=== PATIENT | male | born 1985 | race African-American/Black ===

== ENCOUNTER 2016-08-25 05:27 | Emergency (ER) | payer OTHER ==
--- NOTE | 2016-08-25 05:32 | PDOC ---
History of Present Illness - General Stated Complaint: DETOX History Source: Patient Exam Limitations: No Limitations Past History - Past Medical History Allergies/Adverse Reactions: Allergies Allergy/AdvReac Type Severity Reaction Status Date / Time ibuprofen [From Motrin] Allergy Severe Swelling Verified 08/14/16 10:42 peanut Allergy Swelling Verified 08/14/16 10:42 Home Medications: Ambulatory Orders Mirtazapine [Remeron -] 45 mg PO HS #90 tablet 04/02/16 Quetiapine Fumarate [Seroquel -] 300 mg PO HS 08/14/16 Mirtazapine [Remeron -] 45 mg PO HS #30 tablet 08/15/16 Quetiapine Fumarate [Seroquel -] 300 mg PO HS #30 tab 08/15/16 Amlodipine Besylate [Norvasc -] 10 mg PO DAILY #30 tablet 08/18/16 Anemia: No Asthma: No Cancer: No Cardiac Disorders: No CVA: No COPD: No CHF: No Dementia: No Diabetes: No GI Disorders: No Disorders: No HTN: No Hypercholesterolemia: No Kidney Stones: No Liver Disease: No Suicide Attempt (Hx): No (denies) Seizures: Yes (alcohol related-last episode was in 2014) Thyroid Disease: No - Surgical History Abdominal Surgery: No Appendectomy: No Cardiac Surgery: No Cholecystectomy: No Lung Surgery: No Neurologic Surgery: No Orthopedic Surgery: Yes (2 plates in jaw(14 yrs old)) - Reproductive History Testicular Surgery: No - Psycho/Social/Smoking Cessation Hx Anxiety: Yes Suicidal Ideation: No Smoking Status: Yes Smoking History: Current every day smoker Have you smoked in the past 12 months: Yes Number of Cigarettes Smoked Daily: 20 Cigars Per Day: 0 'Breaking Loose' booklet given: 08/14/16 Hx Alcohol Use: Yes Drug/Substance Use Hx: Yes Substance Use Type: Alcohol, Cocaine, Tranquilizers Hx Substance Use Treatment: Yes Cardiac Specific PMH - Complaint Specific PMHX Pacemaker: No Review of Systems - Review of Systems Able to Perform ROS?: Yes Comments:: 08/25/16 05:51 CONSTITUTIONAL: Absent: fever, chills, diaphoresis, generalized weakness, malaise, loss of appetite HEENT: Absent: rhinorrhea, nasal congestion, throat pain, throat swelling, difficulty swallowing, mouth swelling, ear pain, eye pain, visual Changes CARDIOVASCULAR: Absent: chest pain, loss of consciousness, palpitations, irregular heart rate, peripheral edema RESPIRATORY: Absent: cough, shortness of breath, dyspnea with exertion, orthopnea, wheezing, stridor, hemoptysis GASTROINTESTINAL: Absent: abdominal pain, abdominal distension, nausea, vomiting, diarrhea, constipation, melena, hematochezia GENITOURINARY: Absent: dysuria, frequency, urgency, hesitancy, hematuria, flank pain, genital pain MUSCULOSKELETAL: Absent: myalgia, arthralgia, joint swelling SKIN: Absent: rash, itching, pallor HEMATOLOGIC/IMMUNOLOGIC: Absent: easy bleeding, easy bruising, lymphadenopathy, frequent infections ENDOCRINE: Absent: unexplained weight gain, unexplained weight loss, heat intolerance, cold intolerance NEUROLOGIC: Absent: headache, focal weakness or paresthesias, dizziness, unsteady gait, seizure, mental status changes, bladder or bowel incontinence PSYCHIATRIC: Absent: anxiety, depression, suicidal or homicidal ideation, hallucinations. Is the patient limited Swazi proficient: No *Physical Exam - Vital Signs Last Vital Signs Temp Pulse Resp BP Pulse Ox 98 F 106 H 18 161/110 100 08/25/16 05:38 08/25/16 05:38 08/25/16 05:38 08/25/16 05:38 08/25/16 05:38 - Physical Exam Comments: 08/25/16 05:55 GENERAL: Well developed, well nourished. Awake and alert. No acute distress. HEENT: Normocephalic, atraumatic. PERRLA, EOMI. No conjunctival pallor. Sclera are non- icteric. Moist mucous membranes. Oropharynx is clear. NECK: Supple. Full ROM. No JVD. Carotid pulses 2+ and symmetric, without bruits. No thyromegaly. No lymphadenopathy. CARDIOVASCULAR: Regular rate and rhythm. No murmurs, rubs, or gallops. Distal pulses are 2+ and symmetric. PULMONARY: No evidence of respiratory distress. Lungs clear to auscultation bilaterally. No wheezing, rales or rhonchi. ABDOMINAL: Soft. Non-tender. Non-distended. No rebound or guarding. No organomegaly. Normoactive bowel sounds. MUSCULOSKELETAL Normal range of motion at all joints. No bony deformities or tenderness. No CVA tenderness. EXTREMITIES: No cyanosis. No clubbing. No edema. No calf tenderness. SKIN: Warm and dry. Normal capillary refill. No rashes. No jaundice. NEUROLOGICAL: Alert, awake, appropriate. Cranial nerves 2-12 intact. No deficits to light touch and temperature in face, upper extremities and lower extremities. No motor deficits in the in face, upper extremities and lower extremities. Normoreflexic in the upper and lower extremities. Normal speech. Toes are down- going bilaterally. Gait is normal without ataxia. PSYCHIATRIC: Cooperative. Good eye contact. Appropriate mood and affect. ED Treatment Course - ADDITIONAL ORDERS Additional order review: Laboratory Results 08/25/16 05:45 Opiates Screen Negative Methadone Screen Negative Barbiturate Screen Negative Phencyclidine Screen Negative Ur Amphetamines Screen Negative MDMA (Ecstasy) Screen Negative Benzodiazepines Screen Positive Cocaine Screen Positive U Marijuana (THC) Screen Positive Progress Note - Progress Note Progress Note: 31-year-old male with a past medical history of alcohol abuse presents to the emergency department requesting for alcohol and drug detox. Patient states he was discharged from [facility] 11 days ago but relapsed this evening after drinking a sixpack of beer and smoking cocaine and marijuana. Patient denies any headache, dizziness, lightheadedness, visual disturbance, blurry vision, neck pain, back pains, chest pain, shortness of breath, abdominal pains , urinary symptoms, extremity numbness or tingling sensation. Detox center called/2 [facility]AK [facility] advised it's to soon to have the pt return because it's less than 2 weeks. 0700hrs: Signed out to BURAK Oliveira *DC/Admit/Observation/Transfer Diagnosis at time of Disposition: Alcohol abuse - Discharge Dispostion Disposition: I.P. ALCOHOL/SUBS ABUSE REHAB
[2016-08-25 06:00] VITALS: TEMP 98; BMI 22.5
[2016-08-25 06:46] LABS: URINE MARIJUANA THC POSITIVE ng/ml (CUTOFF=50)
--- NOTE | 2016-08-25 09:15 | PDOC ---
*Physical Exam - Vital Signs Last Vital Signs Temp Pulse Resp BP Pulse Ox 98 F 92 H 18 160/100 98 08/25/16 05:38 08/25/16 09:06 08/25/16 09:06 08/25/16 09:06 08/25/16 09:06 - Physical Exam Comments: 08/25/16 09:13 Signed out to me by SHAMIR Oreilly 08/25/16 09:16 31-year-old male with a past medical history of alcohol abuse presents to the emergency department requesting for alcohol and drug detox. Patient had reported that he was discharged from [facility] 11 days ago but relapsed this evening after drinking a sixpack of beer and smoking cocaine and marijuana. Patient denies any headache, dizziness, lightheadedness, visual disturbance, blurry vision, neck pain, back pains, chest pain, shortness of breath, abdominal pains, urinary symptoms, extremity numbness or tingling sensation. SHAMIR Oreilly spoke to Detox center [facility] [place], SENIOR [employer] DEVELOPER Juju had advised her that it was too soon to have the pt return because it's less than 2 weeks. General Appearance: Yes: Appropriately Dressed HEENT: positive: EOMI, RADU, TMs Normal, Other (dry oral mucosa ). negative: Pharyngeal Erythema, Tonsillar Exudate, Tonsillar Erythema Neck: negative: Lymphadenopathy (R), Lymphadenopathy (L) Respiratory/Chest: positive: Chest Tender, Lungs Clear, Normal Breath Sounds. negative: Respiratory Distress Cardiovascular: positive: Regular Rhythm, Regular Rate, S1, S2 Gastrointestinal/Abdominal: positive: Normal Bowel Sounds, Soft. negative: Organomegaly, Distended, Guarding, Rebound, Tenderness, Hepatomegaly, Spleenomegaly Integumentary: positive: Normal Color Neurologic: positive: Fully Oriented, Alert, Normal Response, Respond to painful stimul, Responsive ED Treatment Course - ADDITIONAL ORDERS Additional order review: Laboratory Results 08/25/16 05:45 Opiates Screen Negative Methadone Screen Negative Barbiturate Screen Negative Phencyclidine Screen Negative Ur Amphetamines Screen Negative MDMA (Ecstasy) Screen Negative Benzodiazepines Screen Positive Cocaine Screen Positive U Marijuana (THC) Screen Positive Medical Decision Making - Medical Decision Making 08/25/16 09:15 08/25/16 09:23 31-year-old male with a past medical history of alcohol abuse and crack cocaine abuse presents to the emergency department requesting for alcohol and drug detox. Patient states he was discharged from [facility] 11 days ago but relapsed this evening after drinking a sixpack of beer and smoking cocaine and marijuana. Patient denies any headache, dizziness, lightheadedness, visual disturbance, blurry vision, neck pain, back pains, chest pain, shortness of breath, abdominal pains, urinary symptoms, extremity numbness or tingling sensation. Pt. reports having h/o grand mal seizure last seizure 1 month ago, also has HTN, h/o anxiety and depression. He reports taking keppra, depakote, seroquel and doexepin. Pt. has not taken medication since discharge. Pt. denies tremors, headache, nausea or vomitng. Pt. has not slept in 4 days. Detox center called/[facility], BURAK [place]ute advised it's to soon to have the pt return because it's less than 2 weeks. 08/25/16 09:24 Laboratory Tests 08/25/16 05:45 Opiates Screen Negative Methadone Screen Negative Barbiturate Screen Negative Phencyclidine Screen Negative Ur Amphetamines Screen Negative MDMA (Ecstasy) Screen Negative Benzodiazepines Screen Positive Cocaine Screen Positive U Marijuana (THC) Screen Positive 08/25/16 09:47 08/25/16 09:[address] Wilkins from [facility] he reported that pt can come for an evaluation but he will not get admitted due to his recent discharge from detox 11 days ago. Pt. requests going to [facility] in [place], [place]. They were called, they gave a number for regional truck driver [phone] regional truck driver will be here within the next hour. They called back pt. will need to have all his medication on him to take to their facility. He does not have his medication on him. He will be discharged. Recommended to patient that he go down 2 [facility] for further evaluation from here at the detox. 08/25/16 09:52 08/25/16 14:16 *DC/Admit/Observation/Transfer Diagnosis at time of Disposition: Alcohol abuse, Marijuana use, Cocaine dependence without complication - Discharge Dispostion Disposition: HOME Condition at time of disposition: Stable - Prescriptions Prescriptions: Amlodipine Besylate [Norvasc -] 10 mg PO DAILY #30 tablet Mirtazapine [Remeron -] 45 mg PO HS #30 tablet Quetiapine Fumarate [Seroquel -] 300 mg PO HS #30 tab - Patient Instructions Additional Instructions: Follow-up at [facility] at [address] [place] [address] as soon as possible Return to emergency room if needed The patient voiced understanding of discharge instructions and all questions were answered
[2016-08-25 10:51] VITALS: BP 158/101; PULSE 88
--- NOTE | 2016-08-25 11:12 | EKG ---
Test Reason : Blood Pressure : / mmHG Vent. Rate : 084 BPM Atrial Rate : 084 BPM P-R Int : 108 ms QRS Dur : 118 ms QT Int : 380 ms P-R-T Axes : 056 066 062 degrees QTc Int : 449 ms SINUS RHYTHM WITH MARKED SINUS ARRHYTHMIA WITH SHORT VT NON-SPECIFIC INTRA-VENTRICULAR CONDUCTION DELAY NONSPECIFIC T WAVE ABNORMALITY ABNORMAL ECG WHEN COMPARED WITH ECG OF 14-AUG-2016 14:38, NO SIGNIFICANT CHANGE WAS FOUND Confirmed by SHANNA DUQUE MD ([id number]) on 08/25/2016 11:11:43 AM Referred By: Confirmed By:SHANNA DUQUE MD
== END 2016-08-25 10:51 | disposition home or self-care (01) ==
LOC: JER 05:27
DX: F14.20 Cocaine dependence, uncomplicated (principal); G40.509 Epileptic seizures related to external causes, not intractable, without status epilepticus
CPT/HCPCS: 80307; 93005; 93010; 99284-25

== ENCOUNTER 2016-09-12 11:17 | Inpatient (IN) | payer OTHER ==
[2016-09-12 12:12] VITALS: BMI 22.5
--- NOTE | 2016-09-12 14:01 | HP ---
CIWA Score - CIWA Score Nausea/Vomitin Muscle Tremors: 3 Anxiety: 3 Agitation: 3 Paroxysmal Sweats: 2 Orientation: 0-Oriented Tacttile Disturbances: 2-Mild Itch/Numbness/Burn Auditory Disturbances: 2-Mild Harshness/Frighten Visual Disturbances: 2-Mild Sensitivity Headache: 2-Mild CIWA-Ar Total Score: 22 Admission ROS BHS - HPI Chief Complaint: I NEED HELP TO STOP USING ALCOHOL,COCAINE AND MARIJUANA PCP,WITHDRAWAL SYMPTOM, LAST DETOX 08/14/16 T0 08/18/16 Allergies/Adverse Reactions: Allergies Allergy/AdvReac Type Severity Reaction Status Date / Time ibuprofen [From Motrin] Allergy Severe Swelling Verified 09/12/16 12:58 peanut Allergy Severe Swelling Verified 09/12/16 12:58 History of Present Illness: THIS 31 YEARS OLD MALE WITH ALCOHOL,COCAINE,,MARIJUANA AND PCP DEPENDENCE, WITHDRAWAL SYMPTOM,LAST DETOX [facility] 08/14/16 TO 08/18/16 HTN BIPOLAR DISORDER,DEPRESSION LONGEGST PERIOD OF SOBRIETY 10 MONTHS NICOTINE DEPENDENCE Exam Limitations: No Limitations - Ebola screening Have you traveled outside of the country in the last 21 days: No Have you had contact with anyone from an Ebola affected area: No Have you been sick,other than usual withdrawal symptoms: No - Review of Systems Constitutional: Loss of Appetite, Malaise, Night Sweats, Changes in sleep, Weakness, Unintentional Wgt. Loss EENT: reports: Nose Congestion Respiratory: reports: No Symptoms reported Cardiac: reports: Palpitations GI: reports: Diarrhea, Nausea, Vomiting, Abdominal cramping : reports: No Symptoms Reported Musculoskeletal: reports: Back Pain, Muscle Pain Integumentary: reports: Dryness Neuro: reports: Headache, Tremors Endocrine: reports: No Symptoms Reported Hematology: reports: No Symptoms Reported Psychiatric: reports: Anxious, Depressed Patient History - Patient Medical History Hx Anemia: No Hx Asthma: No Hx Chronic Obstructive Pulmonary Disease (COPD): No Hx Cancer: No Hx Cardiac Disorders: No Hx Congestive Heart Failure: No Hx Hypertension: Yes (LAST 1 MONTH) Hx Hypercholesterolemia: No Hx Pacemaker: No HX Cerebrovascular Accident: No Hx Seizures: Yes (drug related-last episode was in 2014) Hx Dementia: No Hx Diabetes: No Hx Gastrointestinal Disorders: No Hx Liver Disease: No Hx Genitourinary Disorders: No Hx Sexually Transmitted Disorders: No Hx Renal Disease (ESRD): No Hx Thyroid Disease: No Hx Human Immunodeficiency Virus (HIV): No (negative) Hx Hepatitis C: Yes Hx Depression: Yes Hx Suicide Attempt: No Hx Bipolar Disorder: Yes (NON COMPLIANCE) Hx Schizophrenia: No Other Medical History: NO SUICIDAL,NO HOMICIDAL - Patient Surgical History Past Surgical History: Yes Hx Neurologic Surgery: No Hx Cataract Extraction: No Hx Cardiac Surgery: No Hx Lung Surgery: No Hx Breast Surgery: No Hx Breast Biopsy: No Hx Abdominal Surgery: No Hx Appendectomy: No Hx Cholecystectomy: No Hx Genitourinary Surgery: No Hx Section: No Hx Orthopedic Surgery: Yes (fx, chin, left side jaw at age 14) Other Surgical History: left inguinal hernia repair Anesthesia Reaction: No - PPD History Previous Implant?: Yes Documented Results: Negative w/proof Implanted On Prior [facility] Admission?: Yes Date: 08/16/16 Results: 0 mm PPD to be Administered?: No - Smoking Cessation Smoking history: Current every day smoker Have you smoked in the past 12 months: Yes Aproximately how many cigarettes per day: 20 Cigars Per Day: 0 Hx Chewing Tobacco Use: No Initiated information on smoking cessation: Yes 'Breaking Loose' booklet given: 09/12/16 - Substance & Tx. History Hx Alcohol Use: Yes Hx Substance Use: Yes Substance Use Type: Alcohol, Cocaine, Marijuana Hx Substance Use Treatment: Yes ([facility] 08/14/16 TO 08/18/16) - Substances Abused Cocaine Route: Inhalation Frequency: Daily Amount used: $325 Age of first use: 20 Date of Last Use: 09/12/16 PCP Route: Smoking Frequency: 1-3 times last 30 days Amount used: $20 Age of first use: 21 Date of Last Use: 09/11/16 Alcohol-rum/vodka/beer Route: Oral Frequency: Daily Amount used: 1 gal./4-5 6 pks. Age of first use: 18 Date of Last Use: 09/12/16 Marijuana Route: Smoking Frequency: Daily Amount used: $25 Age of first use: 18 Date of Last Use: 09/12/16 Family Disease History - Family Disease History Family Disease History: Diabetes: Grandparent, Father (HTN), Mother (HTN; STOPPED ETOH AND DRUGS 19 YRS. AGO), Heart Disease: Mother, Other: Father, Mother Admission Physical Exam BHS - Vital Signs Vital Signs: Vital Signs - 24 hr 09/12/16 12:08 Temperature 97 F L Pulse Rate 85 Respiratory 20 Rate Blood Pressure 148/72 - Physical General Appearance: Yes: Moderate Distress, Tremorous, Irritable, Sweating, Anxious HEENTM: Yes: Hearing grossly Normal, Normal ENT Inspection, RADU, Pharynx Normal Respiratory: Yes: Lungs Clear, Normal Breath Sounds, No Respiratory Distress Neck: Yes: Within Normal Limits, Supple, Trachea in good position Breast: Yes: Within Normal Limits Cardiology: Yes: Within Normal Limits, Regular Rhythm, Regular Rate, S1, S2 Abdominal: Yes: Within Normal Limits, Normal Bowel Sounds, Non Tender, Flat, Soft Genitourinary: Yes: Within Normal Limits Back: Yes: Muscle Spasm Musculoskeletal: Yes: full range of Motion, Back pain, Muscle Pain Extremities: Yes: Normal Range of Motion, Tremors Neurological: Yes: cementer II-XII NML intact, Fully Oriented, Alert, Motor Strength 5/5 Integumentary: Yes: Dry Lymphatic: Yes: Within Normal Limits - Diagnostic (1) Alcohol dependence with uncomplicated withdrawal Current Visit: No Status: Chronic (2) Cocaine dependence without complication Current Visit: No Status: Chronic (3) Essential hypertension Current Visit: No Status: Chronic Comment: denies high blood pressure no treatment (4) Hep C w/o coma, chronic Current Visit: No Status: Chronic (5) Marijuana use Current Visit: No Status: Chronic (6) Nicotine dependence Current Visit: No Status: Chronic Qualifiers: Nicotine product type: cigarettes Substance use status: uncomplicated Qualified Code(s): F17.210 - Nicotine dependence, cigarettes, uncomplicated (7) PCP (phencyclidine) abuse Current Visit: No Status: Chronic (8) Bipolar disorder Current Visit: Yes Status: Acute (9) Weight loss Current Visit: Yes Status: Acute (10) Seizure Current Visit: Yes Status: Acute Cleared for Admission S - Detox or Rehab [facility] Level of Care: Medically Managed Detox Regimen/Protocol: Librium S Breath Alcohol Content Breath Alcohol Content: 0 Urine Drug Screen - Results Drug Screen Negative: No Urine Drug Screen Results: THC-Marijuana, GILLIAN-Cocaine, PCP-Phencyclidine
[2016-09-12] MEDS ORDERED: MENTHOL/PHENOL 1 EACH UD MM PRN (14:13)
[2016-09-12] MEDS ORDERED: LOPERAMIDE HCL 2 MG CAPSULE PO PRN (14:13)
[2016-09-12] MEDS ORDERED: hydrOXYzine PAMOATE 50 MG CAPSULE (FP) PO PRN (14:13)
[2016-09-12] MEDS ORDERED: MAGNESIUM CITRATE 300 ML BOTTLE PO PRN (14:13)
[2016-09-12] MEDS ORDERED: guaiFENesin/D-METHORPHAN HB 10 ML UNIT-DOSE CUPS PO PRN (14:13)
[2016-09-12] MEDS ORDERED: IBUPROFEN 400 MG TABLET (FP) PO PRN (14:13)
[2016-09-12] MEDS ORDERED: ACETAMINOPHEN 325 MG TABLET (FP) PO PRN (14:13)
[2016-09-12] MEDS ORDERED: MAG HYDROX/AL HYDROX/SIMETH 30 ML UNIT-DOSE CUP PO PRN (14:13)
[2016-09-12] MEDS ORDERED: MAGNESIUM HYDROX 2400MG/30ML ORAL SUSPENSION 30 ML CUP PO PRN (14:13)
[2016-09-12] MEDS ORDERED: P-EPHED 60MG/TRIPROLIDI 2.5MG TABLET PO PRN (14:13)
[2016-09-12] MEDS ORDERED: diphenhydrAMINE HCL 50 MG CAPSULE PO PRN (14:13)
[2016-09-12] MEDS ORDERED: chlordiazePOXIDE HCL 25 MG CAPSULE PO PRN (14:13)
[2016-09-12] MEDS ORDERED: chlordiazePOXIDE HCL 25 MG CAPSULE PO ONE (15:00)
[2016-09-12] MEDS: NICOTINE 21 MG/24 HOURS TOPICAL PATCH TD SCH (15:12)
[2016-09-12] MEDS: amLODIPine BESYLATE 10 MG TABLET (FP) PO SCH (15:13)
[2016-09-12] MEDS: chlordiazePOXIDE HCL 25 MG CAPSULE PO SCH ×2 (17:31→22:26)
[2016-09-12 20:56] LABS: URINE APPEARANCE CLEAR; URINE BILIRUBIN NEGATIVE (NEGATIVE); URINE BLOOD NEGATIVE (NEGATIVE); URINE COLOR YELLOW; URINE GLUCOSE (UA) NEGATIVE (NEGATIVE); URINE KETONE NEGATIVE (NEGATIVE); URINE NITRITE NEGATIVE (NEGATIVE); URINE PROTEIN NEGATIVE (NEGATIVE); URINE UROBILINOGEN 2.0 E.U/dl E.U./dl (0.2-1.0)
[2016-09-12 21:05] LABS: URINE LEUK ESTERASE TRACE (NEGATIVE)
[2016-09-12 21:12] LABS: CALCIUM OXALATE CRYSTALS RARE /hpf (NONE SEEN); URINE MUCUS RARE; URINE RBC 1 /hpf (0-3); URINE WBC 9 /hpf (3-5)
[2016-09-12] MEDS: THIAMINE HCL 100 MG TABLET (FP) PO SCH (22:26)
[2016-09-13] MEDS: chlordiazePOXIDE HCL 25 MG CAPSULE PO SCH ×4 (06:09→22:09)
--- NOTE | 2016-09-13 09:22 | EKG ---
Test Reason : Blood Pressure : / mmHG Vent. Rate : 078 BPM Atrial Rate : 078 BPM P-R Int : 104 ms QRS Dur : 110 ms QT Int : 378 ms P-R-T Axes : 057 067 068 degrees QTc Int : 430 ms SINUS RHYTHM WITH SHORT UT INCOMPLETE RIGHT BUNDLE BRANCH BLOCK WHEN COMPARED WITH ECG OF 25-AUG-2016 06:07, INCOMPLETE RIGHT BUNDLE BRANCH BLOCK HAS REPLACED NON-SPECIFIC INTRA-VENTRICULAR CONDUCTION DELAY NONSPECIFIC T WAVE ABNORMALITY, IMPROVED IN LATERAL LEADS Confirmed by SHILPA AVENDANO MD ([id number]) on 09/13/2016 9:22:32 AM Referred By: Confirmed By:SHILPA AVENDANO MD
[2016-09-13 09:52] LABS: MCH 25.8 pg (25.7-33.7); MCHC 32.4 g/dl (32.0-35.9); MEAN CELL VOLUME 79.7 fl (80-96); MEAN PLT VOLUME 9.4 fl (7.5-11.1); PLATELET COUNT 360 K/MM3 (134-434); RDW 13.8 % (11.9-15.9); WHITE BLOOD COUNT 6.1 K/mm3 (4.0-10.0)
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
[2016-09-13] MEDS: PRENATAL VITAMINS W/ FOLIC ACID TABLET (FP) PO SCH (10:15)
[2016-09-13] MEDS: NICOTINE 21 MG/24 HOURS TOPICAL PATCH TD SCH (10:15)
[2016-09-13] MEDS: amLODIPine BESYLATE 10 MG TABLET (FP) PO SCH (10:16)
[2016-09-13 10:18] LABS: ALBUMIN 3.7 g/dl (3.4-5.0); ANION GAP 10 (8-16); CO2 26 mmol/L (21-32); GLUCOSE,RANDOM 123 mg/dL (74-106); SGOT/AST 23 U/L (15-37); SGPT/ALT 41 U/L (12-78)
[2016-09-13 10:20] LABS: ALK PHOS 114 U/L (45-117); BILIRUBIN,TOTAL 0.3 mg/dL (0.2-1.0); CALCIUM 8.8 mg/dL (8.5-10.1); COCKROFT - GAULT 139.85; CREATININE 0.9 mg/dL (0.7-1.3); TOT PROT 7.5 g/dl (6.4-8.2)
--- NOTE | 2016-09-13 15:23 | PN ---
S CIWA - CIWA Score Nausea/Vomitin-No Nausea/No Vomiting Muscle Tremors: 4-Moderate,w/Arms Extend Anxiety: 3 Agitation: 3 Paroxysmal Sweats: 3 Orientation: 0-Oriented Tacttile Disturbances: 0-None Auditory Disturbances: 0-None Visual Disturbances: 0-None Headache: 0-None Present CIWA-Ar Total Score: 13 BHS Progress Note (SOAP) Subjective: Sweating,interrupted sleep,restless.tremors,anxiety Objective: 09/13/16 15:22 Vital Signs - 8 hr 09/13/16 09/13/16 10:49 14:23 Temperature 97.6 F 99.1 F Pulse Rate 103 H 111 H Respiratory 20 18 Rate Blood Pressure 135/85 127/81 Laboratory Tests 09/12/16 09/13/16 09/13/16 14:00 06:00 06:00 WBC 6.1 RBC 5.75 H Hgb 14.8 Hct 45.8 MCV 79.7 L MCHC 32.4 RDW 13.8 Plt Count 360 MPV 9.4 Sodium 138 Potassium 4.5 Chloride 102 Carbon Dioxide 26 Anion Gap 10 BUN 14 D Creatinine 0.9 Creat Clearance w eGFR > 60 Random Glucose 123 H D Calcium 8.8 Total Bilirubin 0.3 AST 23 ALT 41 Alkaline Phosphatase 114 Total Protein 7.5 Albumin 3.7 Urine Color Yellow Urine Appearance Clear Urine pH 5.0 Ur Specific [place] 1.025 Urine Protein Negative Urine Glucose (UA) Negative Urine Ketones Negative Urine Blood Negative Urine Nitrite Negative Urine Bilirubin Negative Urine Urobilinogen 2.0 e.u/dl Ur Leukocyte Esterase Trace H Urine RBC 1 Urine WBC 9 Ur Epithelial Cells Rare Calcium Oxalate Crystal Rare Urine Mucus Rare RPR Titer 09/13/16 06:00 WBC RBC Hgb Hct MCV MCHC RDW Plt Count MPV Sodium Potassium Chloride Carbon Dioxide Anion Gap BUN Creatinine Creat Clearance w eGFR Random Glucose Calcium Total Bilirubin AST ALT Alkaline Phosphatase Total Protein Albumin Urine Color Urine Appearance Urine pH Ur Specific [place] Urine Protein Urine Glucose (UA) Urine Ketones Urine Blood Urine Nitrite Urine Bilirubin Urine Urobilinogen Ur Leukocyte Esterase Urine RBC Urine WBC Ur Epithelial Cells Calcium Oxalate Crystal Urine Mucus RPR Titer Nonreactive labs noted Assessment: 09/13/16 15:23 Withdrawal sx. Plan: Continue detox
[2016-09-13] MEDS ORDERED: QUEtiapine FUMARATE 200 MG TABLET PO SCH (22:00)
[2016-09-13] MEDS ORDERED: MIRTAZAPINE 15 MG TABLET (FP) PO SCH (22:00)
[2016-09-13] MEDS: THIAMINE HCL 100 MG TABLET (FP) PO SCH (22:09)
[2016-09-14] MEDS: chlordiazePOXIDE HCL 25 MG CAPSULE PO SCH ×2 (06:08→11:00)
--- NOTE | 2016-09-14 10:37 | PN ---
S CIWA - CIWA Score Nausea/Vomitin-No Nausea/No Vomiting Muscle Tremors: 3 Anxiety: 3 Agitation: 4-Moderately Restless Paroxysmal Sweats: 3 Orientation: 0-Oriented Tacttile Disturbances: 0-None Auditory Disturbances: 0-None Visual Disturbances: 0-None Headache: 0-None Present CIWA-Ar Total Score: 13 BHS Progress Note (SOAP) Subjective: Anxiety,tremors,sweating,interrupted sleep,restless Objective: 09/14/16 10:36 Vital Signs - 8 hr 09/14/16 09/14/16 09/14/16 03:30 06:37 09:44 Temperature 96.9 F L 98.1 F Pulse Rate 103 H 121 H Respiratory 18 18 18 Rate Blood Pressure 132/85 125/86 Laboratory Tests 09/12/16 09/13/16 09/13/16 14:00 06:00 06:00 WBC 6.1 RBC 5.75 H Hgb 14.8 Hct 45.8 MCV 79.7 L MCHC 32.4 RDW 13.8 Plt Count 360 MPV 9.4 Sodium 138 Potassium 4.5 Chloride 102 Carbon Dioxide 26 Anion Gap 10 BUN 14 D Creatinine 0.9 Creat Clearance w eGFR > 60 Random Glucose 123 H D Calcium 8.8 Total Bilirubin 0.3 AST 23 ALT 41 Alkaline Phosphatase 114 Total Protein 7.5 Albumin 3.7 Urine Color Yellow Urine Appearance Clear Urine pH 5.0 Ur Specific [place] 1.025 Urine Protein Negative Urine Glucose (UA) Negative Urine Ketones Negative Urine Blood Negative Urine Nitrite Negative Urine Bilirubin Negative Urine Urobilinogen 2.0 e.u/dl Ur Leukocyte Esterase Trace H Urine RBC 1 Urine WBC 9 Ur Epithelial Cells Rare Calcium Oxalate Crystal Rare Urine Mucus Rare RPR Titer 09/13/16 06:00 WBC RBC Hgb Hct MCV MCHC RDW Plt Count MPV Sodium Potassium Chloride Carbon Dioxide Anion Gap BUN Creatinine Creat Clearance w eGFR Random Glucose Calcium Total Bilirubin AST ALT Alkaline Phosphatase Total Protein Albumin Urine Color Urine Appearance Urine pH Ur Specific [place] Urine Protein Urine Glucose (UA) Urine Ketones Urine Blood Urine Nitrite Urine Bilirubin Urine Urobilinogen Ur Leukocyte Esterase Urine RBC Urine WBC Ur Epithelial Cells Calcium Oxalate Crystal Urine Mucus RPR Titer Nonreactive labs noted Assessment: 09/14/16 10:37 Withdrawal sx. Plan: Continue detox
[2016-09-14] MEDS: amLODIPine BESYLATE 10 MG TABLET (FP) PO SCH (11:00)
[2016-09-14] MEDS: PRENATAL VITAMINS W/ FOLIC ACID TABLET (FP) PO SCH (11:00)
[2016-09-14] MEDS: NICOTINE 21 MG/24 HOURS TOPICAL PATCH TD SCH (11:00)
[2016-09-14 14:43] VITALS: BP 144/86; PULSE 129; TEMP 98.4
[2016-09-14] MEDS ORDERED: chlordiazePOXIDE 5 MG CAPSULE PO SCH (17:00)
[2016-09-15] MEDS ORDERED: chlordiazePOXIDE HCL 10 MG CAPSULE PO SCH (17:00)
--- NOTE | 2016-09-15 19:56 | DS ---
[facility] Detox Discharge Summary Admission Date: 09/12/16 Discharge Date: 09/14/16 - History Present History: Alcohol Dependence, Cannabis Dependence, Cocaine Dependence Pertinent Past History: HTN - Physical Exam Results Vital Signs: Vital Signs Temperature 98.4 F 09/14/16 14:42 Pulse Rate 129 H 09/14/16 14:42 Respiratory Rate 20 09/14/16 14:42 Blood Pressure 144/86 09/14/16 14:42 O2 Sat by Pulse Oximetry (%) Pertinent Admission Physical Exam Findings: Withdrawal sx. Laboratory Last Values WBC 6.1 K/mm3 (4.0-10.0) 09/13/16 06:00 RBC 5.75 M/mm3 (4.00-5.60) H 09/13/16 06:00 Hgb 14.8 GM/dL (11.7-16.9) 09/13/16 06:00 Hct 45.8 % (35.4-49) 09/13/16 06:00 MCV 79.7 fl (80-96) L 09/13/16 06:00 MCHC 32.4 g/dl (32.0-35.9) 09/13/16 06:00 RDW 13.8 % (11.9-15.9) 09/13/16 06:00 Plt Count 360 K/MM3 (134-434) 09/13/16 06:00 MPV 9.4 fl (7.5-11.1) 09/13/16 06:00 Sodium 138 mmol/L (136-145) 09/13/16 06:00 Potassium 4.5 mmol/L (3.5-5.1) 09/13/16 06:00 Chloride 102 mmol/L (98-107) 09/13/16 06:00 Carbon Dioxide 26 mmol/L (21-32) 09/13/16 06:00 Anion Gap 10 (8-16) 09/13/16 06:00 BUN 14 mg/dL (7-18) D 09/13/16 06:00 Creatinine 0.9 mg/dL (0.7-1.3) 09/13/16 06:00 Creat Clearance w eGFR > 60 (>60) 09/13/16 06:00 Random Glucose 123 mg/dL (74-106) H D 09/13/16 06:00 Calcium 8.8 mg/dL (8.5-10.1) 09/13/16 06:00 Total Bilirubin 0.3 mg/dL (0.2-1.0) 09/13/16 06:00 AST 23 U/L (15-37) 09/13/16 06:00 ALT 41 U/L (12-78) 09/13/16 06:00 Alkaline Phosphatase 114 U/L (45-117) 09/13/16 06:00 Total Protein 7.5 g/dl (6.4-8.2) 09/13/16 06:00 Albumin 3.7 g/dl (3.4-5.0) 09/13/16 06:00 Urine Color Yellow 09/12/16 14:00 Urine Appearance Clear 09/12/16 14:00 Urine pH 5.0 (5.0-8.0) 09/12/16 14:00 Ur Specific [place] 1.025 (1.001-1.035) 09/12/16 14:00 Urine Protein Negative (NEGATIVE) 09/12/16 14:00 Urine Glucose (UA) Negative (NEGATIVE) 09/12/16 14:00 Urine Ketones Negative (NEGATIVE) 09/12/16 14:00 Urine Blood Negative (NEGATIVE) 09/12/16 14:00 Urine Nitrite Negative (NEGATIVE) 09/12/16 14:00 Urine Bilirubin Negative (NEGATIVE) 09/12/16 14:00 Urine Urobilinogen 2.0 e.u/dl E.U./dl (0.2-1.0) 09/12/16 14:00 Ur Leukocyte Esterase Trace (NEGATIVE) H 09/12/16 14:00 Urine RBC 1 /hpf (0-3) 09/12/16 14:00 Urine WBC 9 /hpf (3-5) 09/12/16 14:00 Ur Epithelial Cells Rare /hpf (FEW) 09/12/16 14:00 Calcium Oxalate Crystal Rare /hpf (NONE SEEN) 09/12/16 14:00 Urine Mucus Rare 09/12/16 14:00 RPR Titer Nonreactive (NONREACTIVE) 09/13/16 06:00 labs noted - Treatment Hospital Course: Detox Protocol Followed, Detoxed Safely, Responded well, Discharged Condition Good, Rehab Referral Accepted Patient has Accepted a Rehab Referral to: [facility] - Medication Discharge Medications: Ambulatory Orders Mirtazapine [Remeron -] 45 mg PO HS #90 tablet 04/02/16 Amlodipine Besylate [Norvasc -] 10 mg PO DAILY #30 tablet 08/25/16 Quetiapine Fumarate [Seroquel -] 300 mg PO HS #30 tab 08/25/16 Mirtazapine [Remeron -] 15 mg PO HS #30 tablet 09/13/16 Quetiapine Fumarate [Seroquel] 300 mg PO HS #30 tablet 09/13/16 - Diagnosis (1) Alcohol dependence with uncomplicated withdrawal Status: Acute (2) Cannabis dependence Status: Acute (3) Cocaine dependence without complication Status: Acute (4) Drug-induced mood disorder Status: Acute (5) Essential hypertension Status: Chronic (6) Hep C w/o coma, chronic Status: Chronic - AMA Did Patient Leave Against Medical Advice: Yes
== END 2016-09-14 15:38 | disposition left against medical advice (07) | DRG 770 ==
LOC: YASAS 11:17 → Y3N 13:33
PROVIDERS: ADMIT Internal Medicine; ATTEND Internal Medicine
PROC: HZ2ZZZZ Detoxification Services for Substance Abuse Treatment (ICD-10-PCS; principal; 2016-09-14)
DX: F10.230 Alcohol dependence with withdrawal, uncomplicated (principal); F14.20 Cocaine dependence, uncomplicated; F12.20 Cannabis dependence, uncomplicated; F17.210 Nicotine dependence, cigarettes, uncomplicated; F16.10 Hallucinogen abuse, uncomplicated; F31.9 Bipolar disorder, unspecified; F19.24 Other psychoactive substance dependence with psychoactive substance-induced mood disorder; I10 Essential (primary) hypertension; G40.909 Epilepsy, unspecified, not intractable, without status epilepticus; B18.2 Chronic viral hepatitis C
CPT/HCPCS: 36415; 80053; 81003; 81015; 85027; 86593; 93005; 93010

== ENCOUNTER → 2016-10-19 | Emergency (ER) | payer OTHER ==
[~2016-10-19] MED LIST: DIVALPROEX SODIUM 500 MG TABLET E.C. ONE; DIVALPROEX SODIUM 500 MG TABLET E.C. PO ONE; levETIRAcetam 500 MG TABLET (FP) PO ONE
[2016-10-19 03:34] VITALS: BMI 22.5
--- NOTE | 2016-10-19 04:18 | PDOC ---
History of Present Illness - General History Source: Patient Exam Limitations: No Limitations - History of Present Illness Initial Comments: 10/19/16 04:49 The patient is a 31 year old male with a significant past medical history of seizure disorder (on Keppra and Depacon), alcohol and cocaine abuse, who presents to the ER s/p seizure today. Patient appears somnolent on interview. He says he has not taken his seizure medication for four days. He says he is currently homeless and has recently taken cocaine. Denies fever, chills, cough Denies nausea, vomiting, diarrhea Denies any vision changes Denies dizziness or lightheadedness <Sonia Waller - Last Filed: 10/19/16 04:49> <Vi Soto - Last Filed: 10/20/16 22:33> - General Stated Complaint: SEIZURE Time Seen by Provider: 10/19/16 02:38 Past History <Sonia Waller - Last Filed: 10/19/16 04:49> - Past Medical History Anemia: No Asthma: No Cancer: No Cardiac Disorders: No CVA: No COPD: No CHF: No Dementia: No Diabetes: No GI Disorders: No Disorders: No HTN: Yes (LAST 1 MONTH) Hypercholesterolemia: No Kidney Stones: No Liver Disease: No Suicide Attempt (Hx): No Seizures: Yes (drug related-last episode was in 2014) Thyroid Disease: No - Surgical History Abdominal Surgery: No Appendectomy: No Cardiac Surgery: No Cholecystectomy: No Lung Surgery: No Neurologic Surgery: No Orthopedic Surgery: Yes (fx, chin, left side jaw at age 14) - Reproductive History Testicular Surgery: No - Psycho/Social/Smoking Cessation Hx Anxiety: Yes Suicidal Ideation: No Smoking Status: Yes Smoking History: Current every day smoker Have you smoked in the past 12 months: Yes Number of Cigarettes Smoked Daily: 20 Cigars Per Day: 0 Information on smoking cessation initiated: No 'Breaking Loose' booklet given: 09/12/16 Hx Alcohol Use: Yes Drug/Substance Use Hx: Yes Substance Use Type: Alcohol, Cocaine, Marijuana Hx Substance Use Treatment: Yes ([facility] 08/14/16 TO 08/18/16) <Vi Soto - Last Filed: 10/20/16 22:33> - Past Medical History Allergies/Adverse Reactions: Allergies Allergy/AdvReac Type Severity Reaction Status Date / Time ibuprofen [From Motrin] Allergy Severe Swelling Verified 10/19/16 03:34 peanut Allergy Severe Swelling Verified 10/19/16 03:34 Home Medications: Ambulatory Orders Mirtazapine [Remeron -] 45 mg PO HS #90 tablet 04/02/16 Amlodipine Besylate [Norvasc -] 10 mg PO DAILY #30 tablet 08/25/16 Quetiapine Fumarate [Seroquel -] 300 mg PO HS #30 tab 08/25/16 Levetiracetam [Keppra -] 1,500 mg PO BID #30 tablet 10/19/16 Valproic Acid [Depakene -] 500 mg NR BID #10 capsule 10/19/16 Review of Systems - Review of Systems Comments:: 10/19/16 04:49 CONSTITUTIONAL: Absent: fever, no chills, no fatigue EYES: Absent: visual changes ENT: Absent: ear pain, no sore throat CARDIOVASCULAR: Absent: chest pain, no palpitations RESPIRATORY: Absent: cough, no SOB GI: Absent: abdominal pain, no nausea, no vomiting, no constipation, no diarrhea GENITOURINARY: Absent: dysuria, no frequency, no hematuria MUSCULOSKELETAL: Absent: back pain, no arthralgia, no myalgia SKIN: Absent: rash NEURO: Present: seizure Absent: headache <Kss,Sonia - Last Filed: 10/19/16 04:49> *Physical Exam - Vital Signs Last Vital Signs Temp Pulse Resp BP Pulse Ox 80 12 164/70 96 10/19/16 03:32 10/19/16 03:32 10/19/16 03:32 10/19/16 03:32 - Physical Exam Comments: 10/19/16 04:49 GENERAL: Somnolent. Well-appearing, well-nourished. No apparent distress. HEENT: Normocephalic, atraumatic. PERRL, EOM intact. CARDIOVASCULAR: Normal S1, S2. Regular rate and rhythm. PULMONARY: Clear to auscultation bilaterally. ABDOMEN: Soft, non-distended, non-tender. EXTREMITIES: Normal ROM in all four extremities. No gross deformities. SKIN: Warm, dry. No rash NEUROLOGICAL: No focal neurological deficits. <[facility],Sonia - Last Filed: 10/19/16 04:49> - Vital Signs Last Vital Signs Temp Pulse Resp BP Pulse Ox 80 12 164/70 96 10/19/16 03:32 10/19/16 03:32 10/19/16 03:32 10/19/16 03:32 <Vi Soto - Last Filed: 10/20/16 22:33> ED Treatment Course - Medications Given in the ED: ED Medications Discontinued Medications Generic Name Dose Route Start Last Admin Trade Name Adriana PRN Reason Stop Dose Admin Divalproex Sodium 1,000 mg 10/19/16 04:31 10/19/16 04:47 Depakote - PO 10/19/16 04:32 1,000 mg ONCE ONE Administration Levetiracetam 1,000 mg 10/19/16 04:31 10/19/16 04:47 Keppra - PO 10/19/16 04:32 1,000 mg ONCE ONE Administration <Sonia Waller - Last Filed: 10/19/16 04:49> - LABORATORY CBC & Chemistry Diagram: 10/19/16 09:58 10/19/16 09:58 <Vi Soto - Last Filed: 10/20/16 22:33> Medical Decision Making - Medical Decision Making 10/19/16 07:03 Pt comes with complaint that he has not taken his meds for 4 days. He uses cocaine and is homeless. I gave him a dose of his keppra and depakote. He will be signed out to day ER doc and he will require director of social services this AM. <Vi Soto - Last Filed: 10/20/16 22:33> *DC/Admit/Observation/Transfer - Attestations Scribe Attestion: 10/19/16 04:50 Documentation prepared by Sonia Waller, acting as medical review coordinator for Vi Soto MD. <Sonia Waller - Last Filed: 10/19/16 04:49> <Vi Soto - Last Filed: 10/20/16 22:33> Diagnosis at time of Disposition: Seizure - Discharge Dispostion Disposition: HOME Condition at time of disposition: Improved - Prescriptions Prescriptions: Valproic Acid [Depakene -] 500 mg NR BID #10 capsule Levetiracetam [Keppra -] 1,500 mg PO BID #30 tablet - Referrals Referrals: [facility] [Provider Group] - Patient Instructions Printed Discharge Instructions: DI for Seizure Disorder -- Adult Additional Instructions: Please follow up with your primary care doctor for further evaluation. If you need a primary care doctor you may follow up with [facility]. Print Language: CHINESE
--- NOTE | 2016-10-19 09:34 | PDOC ---
*Physical Exam - Vital Signs Last Vital Signs Temp Pulse Resp BP Pulse Ox 98.2 F 77 16 112/69 100 10/19/16 08:07 10/19/16 08:07 10/19/16 08:07 10/19/16 08:07 10/19/16 08:07 ED Treatment Course - LABORATORY CBC & Chemistry Diagram: 10/19/16 09:58 10/19/16 09:58 - Medications Given in the ED: ED Medications Discontinued Medications Generic Name Dose Route Start Last Admin Trade Name Adriana PRN Reason Stop Dose Admin Divalproex Sodium 1,000 mg 10/19/16 04:31 10/19/16 04:47 Depakote - PO 10/19/16 04:32 1,000 mg ONCE ONE Administration Levetiracetam 1,000 mg 10/19/16 04:31 10/19/16 04:47 Keppra - PO 10/19/16 04:32 1,000 mg ONCE ONE Administration Medical Decision Making - Medical Decision Making 10/19/16 09:27 Pt signed out to me from Dr. Rivas for social work consult. The pt states he had a seizure last night, states he formerly was on seizure meds but hasnt taken it in a few days as he ran out. The pt is at baseline mental status, alert, awake. with unremarkabl exam beside being dischevelled. I will check basic labs and a valproic acid level. The pt was loaded on his medications last night by dr. rivas the pt has a MD on [facility] that he will follow up with but I will give the pt a refill for his seizure meds. 10/19/16 11:08 10/19/16 11:43 labs rviewed valproic acid level therpeutic will dc with his doctor on [facility] return precautions were discussed I discussed the physical exam findings, ancillary test results and final diagnoses with the patient. I answered all of the patient's questions. The patient was satisfied with the care received and felt comfortable with the discharge plan and treatment plan. The patient will call their primary care physician within 24 hours to arrange follow-up and will return to the Emergency Department with any new, persistent or worsening symptoms. *DC/Admit/Observation/Transfer Diagnosis at time of Disposition: Seizure - Discharge Dispostion Disposition: HOME Condition at time of disposition: Improved Admit: No - Prescriptions Prescriptions: Valproic Acid [Depakene -] 500 mg NR BID #10 capsule Levetiracetam [Keppra -] 1,500 mg PO BID #30 tablet - Referrals Referrals: [facility] [Provider Group] - Patient Instructions Printed Discharge Instructions: DI for Seizure Disorder -- Adult Additional Instructions: Please follow up with your primary care doctor for further evaluation. If you need a primary care doctor you may follow up with [facility]. Print Language: FINNISH
[2016-10-19 10:04] LABS: BASOPHIL 1.2 % (0-2.0); EOSINOPHIL 6.2 % (0-4.5); MCH 26.2 pg (25.7-33.7); MCHC 33.3 g/dl (32.0-35.9); MEAN CELL VOLUME 78.6 fl (80-96); NEUTROPHILS 37.7 % (42.8-82.8); PLATELET COUNT 327 K/MM3 (134-434); WHITE BLOOD COUNT 4.8 K/mm3 (4.0-10.0)
[2016-10-19 10:27] LABS: ALBUMIN 3.6 g/dl (3.4-5.0); ALK PHOS 92 U/L (45-117); ANION GAP 8 (8-16); BILIRUBIN,TOTAL 0.6 mg/dL (0.2-1.0); CALCIUM 8.9 mg/dL (8.5-10.1); CO2 27 mmol/L (21-32); COCKROFT - GAULT 139.85; CREATININE 0.9 mg/dL (0.7-1.3); GLUCOSE,RANDOM 154 mg/dL (74-106); MAGNESIUM 2.1 mg/dL (1.8-2.4); SGOT/AST 32 U/L (15-37); SGPT/ALT 49 U/L (12-78); TOT PROT 7.2 g/dl (6.4-8.2)
[2016-10-19 11:50] VITALS: BP 119/72; PULSE 79; TEMP 98.1
== END | disposition home or self-care (01) ==
LOC: JER 02:20
DX: G40.909 Epilepsy, unspecified, not intractable, without status epilepticus (principal); F14.10 Cocaine abuse, uncomplicated; F10.10 Alcohol abuse, uncomplicated; Z91.14 Patient's other noncompliance with medication regimen; Z59.0 Homelessness
CPT/HCPCS: 36415; 80053; 80164; 83735; 85025; 99282-25

== ENCOUNTER 2016-11-18 09:43 | Inpatient (IN) | payer OTHER ==
[2016-11-18 14:08] VITALS: BMI 21.9
--- NOTE | 2016-11-18 19:19 | HP ---
CIWA Score - CIWA Score Nausea/Vomitin Muscle Tremors: 3 Anxiety: 3 Agitation: 3 Paroxysmal Sweats: 2 Orientation: 0-Oriented Tacttile Disturbances: 2-Mild Itch/Numbness/Burn Auditory Disturbances: 2-Mild Harshness/Frighten Visual Disturbances: 2-Mild Sensitivity Headache: 2-Mild CIWA-Ar Total Score: 22 Admission ROS BHS - HPI Chief Complaint: i need help to stop drinking alcohol,cocaine,marijuana,pcp,seeking help for detox,last detox 09/23 [facility] not completed seizure alcohol related last 2015 htn nicotine dependence several admission in the past,keep relapsng longest period of sobriety 10 months Allergies/Adverse Reactions: Allergies Allergy/AdvReac Type Severity Reaction Status Date / Time ibuprofen [From Motrin] Allergy Severe Swelling Verified 11/18/16 16:37 peanut Allergy Severe Swelling Verified 11/18/16 16:37 History of Present Illness: this 31 years old male with alcohol,cocaine,marijuana,pcp dependence,seeking help for detox,last detox in Exam Limitations: No Limitations - Ebola screening Have you traveled outside of the country in the last 21 days: No Have you had contact with anyone from an Ebola affected area: No Have you been sick,other than usual withdrawal symptoms: No Do you have a fever: No - Review of Systems Constitutional: Chills, Loss of Appetite, Malaise, Night Sweats, Changes in sleep, Weakness, Unintentional Wgt. Loss EENT: reports: Tearing, Nose Congestion Respiratory: reports: No Symptoms reported Cardiac: reports: Palpitations GI: reports: Diarrhea, Nausea, Vomiting, Abdominal cramping : reports: No Symptoms Reported Musculoskeletal: reports: Back Pain, Muscle Pain Integumentary: reports: Dryness Endocrine: reports: No Symptoms Reported Hematology: reports: No Symptoms Reported Psychiatric: reports: No Sypmtoms Reported, Judgement Intact, Mood/Affect Appropiate, Anxious, Depressed Patient History - Patient Medical History Hx Anemia: No Hx Asthma: No Hx Chronic Obstructive Pulmonary Disease (COPD): No Hx Cancer: No Hx Cardiac Disorders: No Hx Congestive Heart Failure: No Hx Hypertension: Yes (on medication) Hx Hypercholesterolemia: No Hx Pacemaker: No HX Cerebrovascular Accident: No Hx Seizures: Yes (r/t head trauma-last episode was a year ago) Hx Dementia: No Hx Diabetes: No Hx Gastrointestinal Disorders: No Hx Liver Disease: No Hx Genitourinary Disorders: No Hx Sexually Transmitted Disorders: Yes (chlamydia) Hx Renal Disease (ESRD): No Hx Thyroid Disease: No Hx Human Immunodeficiency Virus (HIV): No ( last 09/23) Hx Hepatitis C: No Hx Depression: Yes Hx Suicide Attempt: No Hx Bipolar Disorder: Yes (NON COMPLIANCE) Hx Schizophrenia: No Other Medical History: no suicidal,no homicidal - Patient Surgical History Past Surgical History: Yes Hx Neurologic Surgery: No Hx Cataract Extraction: No Hx Cardiac Surgery: No Hx Lung Surgery: No Hx Breast Surgery: No Hx Breast Biopsy: No Hx Abdominal Surgery: Yes (left inguinal hernia repair at childhood) Hx Appendectomy: No Hx Cholecystectomy: No Hx Genitourinary Surgery: No Hx Section: No Hx Orthopedic Surgery: Yes (fx, chin, left side jaw at age 14) Other Surgical History: left inguinal hernia repair Anesthesia Reaction: No - PPD History Previous Implant?: Yes Documented Results: Negative w/proof Implanted On Prior [facility] Admission?: Yes Date: 08/16/16 Results: 0 mm PPD to be Administered?: No - Smoking Cessation Smoking history: Current every day smoker Have you smoked in the past 12 months: Yes Aproximately how many cigarettes per day: 20 Cigars Per Day: 0 Hx Chewing Tobacco Use: No Initiated information on smoking cessation: Yes 'Breaking Loose' booklet given: 11/18/16 - Substance & Tx. History Hx Alcohol Use: Yes Hx Substance Use: Yes Substance Use Type: Alcohol, Cocaine, Marijuana Hx Substance Use Treatment: Yes ([facility] in 09/23 not completed) - Substances Abused Crack Route: Smoking Frequency: Daily Amount used: $100 Age of first use: 21 Date of Last Use: 11/17/16 Alcohol-rum/beer Route: Oral Frequency: Daily Amount used: 1 gal./4-5 6 pks. Age of first use: 20 Date of Last Use: 11/18/16 Marijuana/Hashish Route: Smoking Frequency: Daily Amount used: 200$ Age of first use: 18 Date of Last Use: 11/17/16 PCP Route: Smoking Frequency: 1-3 times last 30 days Amount used: 20$ Age of first use: 24 Date of Last Use: 10/21/16 Family Disease History - Family Disease History Family Disease History: Diabetes: Grandparent, Father (HTN), Mother (HTN; STOPPED ETOH AND DRUGS 19 YRS. AGO), Heart Disease: Mother, Other: Father, Mother Admission Physical Exam [facility] - Vital Signs Vital Signs: Vital Signs - 24 hr 11/18/16 14:06 Pulse Rate 112 H Respiratory 18 Rate Blood Pressure 159/99 - Physical General Appearance: Yes: Moderate Distress, Tremorous, Irritable, Sweating HEENTM: Yes: Normal ENT Inspection, Normocephalic, Normal Voice, RADU Respiratory: Yes: Lungs Clear, Normal Breath Sounds, No Respiratory Distress Neck: Yes: Within Normal Limits Breast: Yes: Within Normal Limits Cardiology: Yes: Tachycardia Abdominal: Yes: Within Normal Limits, Non Tender, Flat, Soft Genitourinary: Yes: Within Normal Limits Back: Yes: Muscle Spasm Musculoskeletal: Yes: Within Normal Limits, full range of Motion, Back pain, Muscle Pain Extremities: Yes: Tremors Neurological: Yes: life teacher II-XII NML intact, Fully Oriented, Alert, Motor Strength 5/5 Integumentary: Yes: Dry Lymphatic: Yes: Within Normal Limits - Diagnostic (1) Alcohol dependence with uncomplicated withdrawal Current Visit: No Status: Acute (2) Cannabis dependence Current Visit: No Status: Acute (3) Cocaine dependence without complication Current Visit: No Status: Acute (4) PCP (phencyclidine) abuse Current Visit: No Status: Acute (5) Weight loss Current Visit: No Status: Acute (6) Bipolar disorder Current Visit: No Status: Chronic Comment: History. (7) Essential hypertension Current Visit: No Status: Chronic Comment: denies high blood pressure no treatment (8) Nicotine dependence Current Visit: No Status: Chronic Qualifiers: Nicotine product type: cigarettes Substance use status: uncomplicated Qualified Code(s): F17.210 - Nicotine dependence, cigarettes, uncomplicated (9) Seizure Current Visit: No Status: Chronic Cleared for Admission [facility] - Detox or Rehab [facility] Level of Care: Medically Managed Detox Regimen/Protocol: Librium S Breath Alcohol Content Breath Alcohol Content: 0.025 Urine Drug Screen - Results Drug Screen Negative: No Urine Drug Screen Results: GILLIAN-Cocaine
[2016-11-18] MEDS ORDERED: P-EPHED 60MG/TRIPROLIDI 2.5MG TABLET PO PRN (19:34)
[2016-11-18] MEDS ORDERED: MAG HYDROX/AL HYDROX/SIMETH 30 ML UNIT-DOSE CUP PO PRN (19:34)
[2016-11-18] MEDS ORDERED: hydrOXYzine PAMOATE 50 MG CAPSULE (FP) PO PRN (19:34)
[2016-11-18] MEDS ORDERED: MAGNESIUM HYDROX 2400MG/30ML ORAL SUSPENSION 30 ML CUP PO PRN (19:34)
[2016-11-18] MEDS ORDERED: diphenhydrAMINE HCL 50 MG CAPSULE PO PRN (19:34)
[2016-11-18] MEDS ORDERED: MAGNESIUM CITRATE 300 ML BOTTLE PO PRN (19:34)
[2016-11-18] MEDS ORDERED: ACETAMINOPHEN 325 MG TABLET (FP) PO PRN (19:34)
[2016-11-18] MEDS ORDERED: chlordiazePOXIDE HCL 25 MG CAPSULE PO PRN (19:34)
[2016-11-18] MEDS ORDERED: IBUPROFEN 400 MG TABLET (FP) PO PRN (19:34)
[2016-11-18] MEDS ORDERED: LOPERAMIDE HCL 2 MG CAPSULE PO PRN (19:34)
[2016-11-18] MEDS ORDERED: MENTHOL/PHENOL 1 EACH UD MM PRN (19:34)
[2016-11-18] MEDS ORDERED: chlordiazePOXIDE HCL 25 MG CAPSULE PO ONE (19:34)
[2016-11-18] MEDS ORDERED: guaiFENesin/D-METHORPHAN HB 10 ML UNIT-DOSE CUPS PO PRN (19:34)
[2016-11-18] MEDS ORDERED: NICOTINE POLACRILEX 2 MG GUM BUC PRN (19:34)
[2016-11-18] MEDS: NICOTINE 21 MG/24 HOURS TOPICAL PATCH TD SCH (20:14)
[2016-11-18] MEDS: amLODIPine BESYLATE 10 MG TABLET (FP) PO SCH (20:14)
[2016-11-18 21:14] LABS: URINE APPEARANCE CLEAR; URINE BILIRUBIN NEGATIVE (NEGATIVE); URINE BLOOD NEGATIVE (NEGATIVE); URINE COLOR YELLOW; URINE GLUCOSE (UA) NEGATIVE (NEGATIVE); URINE KETONE NEGATIVE (NEGATIVE); URINE NITRITE NEGATIVE (NEGATIVE); URINE PROTEIN NEGATIVE (NEGATIVE); URINE UROBILINOGEN 2.0 E.U/dl E.U./dl (0.2-1.0)
[2016-11-18 21:15] LABS: URINE LEUK ESTERASE TRACE (NEGATIVE)
[2016-11-18 21:20] LABS: URINE MUCUS FEW; URINE RBC 2 /hpf (0-3); URINE WBC 18 /hpf (3-5)
[2016-11-18] MEDS: THIAMINE HCL 100 MG TABLET (FP) PO SCH (22:15)
[2016-11-18] MEDS: chlordiazePOXIDE HCL 25 MG CAPSULE PO SCH (22:15)
[2016-11-19] MEDS: chlordiazePOXIDE HCL 25 MG CAPSULE PO SCH ×4 (05:47→22:36)
[2016-11-19 09:58] LABS: MCH 25.9 pg (25.7-33.7); MCHC 32.5 g/dl (32.0-35.9); MEAN CELL VOLUME 79.7 fl (80-96); MEAN PLT VOLUME 9.2 fl (7.5-11.1); PLATELET COUNT 357 K/MM3 (134-434); RDW 13.9 % (11.9-15.9); WHITE BLOOD COUNT 6.2 K/mm3 (4.0-10.0)
[2016-11-19] MEDS ORDERED: PRENATAL VITAMINS W/ FOLIC ACID TABLET (FP) PO SCH (10:00)
[2016-11-19] MEDS: NICOTINE 21 MG/24 HOURS TOPICAL PATCH TD SCH (10:13)
[2016-11-19] MEDS: amLODIPine BESYLATE 10 MG TABLET (FP) PO SCH (10:13)
--- NOTE | 2016-11-19 10:14 | PN ---
S CIWA - CIWA Score Nausea/Vomitin-No Nausea/No Vomiting Muscle Tremors: 4-Moderate,w/Arms Extend Anxiety: 3 Agitation: 4-Moderately Restless Paroxysmal Sweats: 3 Orientation: 0-Oriented Tacttile Disturbances: 0-None Auditory Disturbances: 0-None Visual Disturbances: 0-None Headache: 0-None Present CIWA-Ar Total Score: 14 BHS Progress Note (SOAP) Subjective: interrupted sleep sweats shakes irritable Objective: 11/19/16 10:13 Vital Signs Temperature 98.6 F 11/19/16 09:48 Pulse Rate 96 H 11/19/16 09:48 Respiratory Rate 20 11/19/16 09:48 Blood Pressure 140/81 11/19/16 09:48 O2 Sat by Pulse Oximetry (%) Laboratory Tests 11/18/16 11/19/16 20:45 06:00 WBC 6.2 RBC 5.57 Hgb 14.4 Hct 44.4 MCV 79.7 L MCHC 32.5 RDW 13.9 Plt Count 357 MPV 9.2 D Urine Color Yellow Urine Appearance Clear Urine pH 5.0 Ur Specific [place] >= 1.030 H Urine Protein Negative Urine Glucose (UA) Negative Urine Ketones Negative Urine Blood Negative Urine Nitrite Negative Urine Bilirubin Negative Urine Urobilinogen 2.0 e.u/dl Ur Leukocyte Esterase Trace H Urine RBC 2 Urine WBC 18 Ur Epithelial Cells Rare Urine Mucus Few labs pending awake/alert ambulating no acute distress Assessment: 11/19/16 10:13 withdrawal sx Plan: continue detox increase fluids labs pending
[2016-11-19 10:59] LABS: ALK PHOS 103 U/L (45-117); ANION GAP 12 (8-16); BILIRUBIN,TOTAL 0.6 mg/dL (0.2-1.0); CALCIUM 9.1 mg/dL (8.5-10.1); CO2 23 mmol/L (21-32); COCKROFT - GAULT 136.74; CREATININE 0.9 mg/dL (0.7-1.3); GLUCOSE,RANDOM 108 mg/dL (74-106); SGOT/AST 43 U/L (15-37); SGPT/ALT 58 U/L (12-78); TOT PROT 7.5 g/dl (6.4-8.2)
--- NOTE | 2016-11-19 10:59 | EKG ---
Test Reason : Blood Pressure : / mmHG Vent. Rate : 082 BPM Atrial Rate : 082 BPM P-R Int : 110 ms QRS Dur : 108 ms QT Int : 370 ms P-R-T Axes : 063 071 072 degrees QTc Int : 432 ms SINUS RHYTHM WITH SINUS ARRHYTHMIA WITH SHORT [place] INCOMPLETE RIGHT BUNDLE BRANCH BLOCK BORDERLINE ECG WHEN COMPARED WITH ECG OF 12-SEP-2016 14:07, NO SIGNIFICANT CHANGE WAS FOUND Confirmed by BATSHEVA FAROOQ MD ([id number]) on 11/19/2016 10:58:55 AM Referred By: Confirmed By:BATSHEVA FAROOQ MD
[2016-11-19 12:10] LABS: HIV 1 & 2 AB NEGATIVE; HIV 1 AGp24 NEGATIVE
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
--- NOTE | 2016-11-19 18:24 | PN ---
[facility] Progress Note Note: patient did not want to take seizure medication
[2016-11-19] MEDS ORDERED: QUEtiapine FUMARATE 100 MG TABLET (FP) PO SCH (22:00)
[2016-11-19] MEDS: THIAMINE HCL 100 MG TABLET (FP) PO SCH (22:36)
[2016-11-20] MEDS: chlordiazePOXIDE HCL 25 MG CAPSULE PO SCH (05:46)
[2016-11-20 06:21] VITALS: BP 126/74; PULSE 81; TEMP 97.3
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
--- NOTE | 2016-11-20 09:25 | DS ---
[facility] Detox Discharge Summary Admission Date: 11/18/16 Discharge Date: 11/20/16 - History Present History: Alcohol Dependence, Cannabis Dependence, Cocaine Dependence, Pcp Dependence - Physical Exam Results Vital Signs: Vital Signs Temperature 97.3 F L 11/20/16 06:20 Pulse Rate 81 11/20/16 06:20 Respiratory Rate 18 11/20/16 06:20 Blood Pressure 126/74 11/20/16 06:20 O2 Sat by Pulse Oximetry (%) - Treatment Hospital Course: Detox Protocol Followed, Detoxed Safely, Responded well, Discharged Condition Good, Rehab Referral Accepted - Medication Discharge Medications: Ambulatory Orders Mirtazapine [Remeron -] 45 mg PO HS #90 tablet 04/02/16 Amlodipine Besylate [Norvasc -] 10 mg PO DAILY #30 tablet 08/25/16 Quetiapine Fumarate [Seroquel -] 300 mg PO HS #30 tab 08/25/16 - Diagnosis (1) Alcohol dependence with uncomplicated withdrawal Current Visit: Yes Status: Chronic (2) Cocaine dependence without complication Current Visit: Yes Status: Chronic (3) Drug-induced mood disorder Current Visit: Yes Status: Acute (4) Nicotine dependence Current Visit: Yes Status: Chronic Qualifiers: Nicotine product type: cigarettes Substance use status: uncomplicated Qualified Code(s): F17.210 - Nicotine dependence, cigarettes, uncomplicated (5) PCP (phencyclidine) abuse Current Visit: Yes Status: Chronic (6) Bipolar disorder Current Visit: Yes Status: Chronic (7) Essential hypertension Current Visit: Yes Status: Chronic (8) Hep C w/o coma, chronic Current Visit: Yes Status: Chronic (9) Cannabis dependence Current Visit: Yes Status: Chronic (10) Seizure Current Visit: No Status: Suspected - AMA Did Patient Leave Against Medical Advice: No (pt was threthening another pt )
[2016-11-20] MEDS ORDERED: chlordiazePOXIDE 5 MG CAPSULE PO SCH (23:00)
[2016-11-21] MEDS ORDERED: chlordiazePOXIDE HCL 10 MG CAPSULE PO SCH (23:00)
== END 2016-11-20 08:58 | disposition home or self-care (01) | DRG 774 ==
LOC: YASAS 09:43 → Y6N 17:31
PROVIDERS: ADMIT Internal Medicine; ATTEND Internal Medicine
PROC: HZ2ZZZZ Detoxification Services for Substance Abuse Treatment (ICD-10-PCS; principal; 2016-11-18)
DX: F10.230 Alcohol dependence with withdrawal, uncomplicated (principal); F14.20 Cocaine dependence, uncomplicated; F12.20 Cannabis dependence, uncomplicated; F16.10 Hallucinogen abuse, uncomplicated; F17.210 Nicotine dependence, cigarettes, uncomplicated; F19.24 Other psychoactive substance dependence with psychoactive substance-induced mood disorder; F31.9 Bipolar disorder, unspecified; F91.8 Other conduct disorders; I10 Essential (primary) hypertension; R00.0 Tachycardia, unspecified; B18.2 Chronic viral hepatitis C; G40.909 Epilepsy, unspecified, not intractable, without status epilepticus; Z87.438 Personal history of other diseases of male genital organs; Z91.14 Patient's other noncompliance with medication regimen; Z87.898 Personal history of other specified conditions
CPT/HCPCS: 36415; 80053; 81003; 81015; 85027; 86593; 86803; 87389; 93005; 93010

== ENCOUNTER 2017-06-10 01:29 | Emergency (ER) | payer OTHER ==
--- NOTE | 2017-06-10 01:48 | PDOC ---
History of Present Illness <Vi Soto - Last Filed: 06/10/17 02:48> - History of Present Illness Initial Comments: 06/10/17 01:56 Mr. Daniels is a 31 yo male w/ pmh of scoliosis, anxiety, depression, and seizure disorder who presents following 2 reported seizures at home. He reports he "blacked out" and was told by family he had 2 seizures lasting 5-10 minutes each. He then called EMS from a gas station [place] the [place] from his home. Per EMS he had another seizure on the way for which he was given 5mg of IM versed. Mr. Daniels reports he also has a headache. He has taken Keppra and Depakote in the past for his seizures but reports his prescription ran out in February and he has not filled it again. He recreationaly uses crack, cocaine, marijuana, alcohol, and ecstasy. The patient denies chest pain, shortness of breath, and dizziness. Denies fever , chills, nausea, vomit, diarrhea and constipation. Denies dysuria, frequency, urgency and hematuria. Allergies: Ibuprofen, peanuts. <David Amato - Last Filed: 06/10/17 03:30> - General Stated Complaint: SEIZURES Time Seen by Provider: 06/10/17 01:48 Past History <Vi Soto - Last Filed: 06/10/17 02:48> - Past Medical History Anemia: No Asthma: No Cancer: No Cardiac Disorders: No CVA: No COPD: No CHF: No Dementia: No Diabetes: No GI Disorders: No Disorders: No HTN: Yes (on medication) Hypercholesterolemia: No Kidney Stones: No Liver Disease: No Seizures: Yes (r/t head trauma-last episode was a year ago) Thyroid Disease: No - Surgical History Abdominal Surgery: Yes (left inguinal hernia repair at childhood) Appendectomy: No Cardiac Surgery: No Cholecystectomy: No Lung Surgery: No Neurologic Surgery: No Orthopedic Surgery: Yes (fx, chin, left side jaw at age 14) - Reproductive History Testicular Surgery: No - Suicide/Smoking/Psychosocial Hx Smoking Status: Yes Smoking History: Current every day smoker Have you smoked in the past 12 months: Yes Number of Cigarettes Smoked Daily: 20 Cigars Per Day: 0 'Breaking Loose' booklet given: 11/18/16 Hx Alcohol Use: Yes Drug/Substance Use Hx: Yes Substance Use Type: Alcohol, Cocaine, Marijuana Hx Substance Use Treatment: Yes ([facility] in 09/23 not completed) <David Amato - Last Filed: 06/10/17 03:30> - Past Medical History Allergies/Adverse Reactions: Allergies Allergy/AdvReac Type Severity Reaction Status Date / Time ibuprofen [From Motrin] Allergy Severe Swelling Verified 11/18/16 16:37 peanut Allergy Severe Swelling Verified 11/18/16 16:37 Home Medications: Ambulatory Orders Mirtazapine [Remeron -] 45 mg PO HS #90 tablet 04/02/16 Amlodipine Besylate [Norvasc -] 10 mg PO DAILY #30 tablet 08/25/16 Quetiapine Fumarate [Seroquel -] 300 mg PO HS #30 tab 08/25/16 Quetiapine Fumarate [Seroquel] 100 mg PO HS #30 tablet 11/20/16 Levetiracetam [Keppra -] 500 mg PO BID #30 tablet 06/10/17 Valproic Acid [Depakene] 500 mg PO BID #10 capsule 06/10/17 Valproic Acid [Depakene] 500 mg PO BID #20 capsule 06/10/17 Review of Systems - Review of Systems Comments:: 06/10/17 02:56 GENERAL/CONSTITUTIONAL: No fever or chills. No weakness. HEAD, EYES, EARS, NOSE AND THROAT: No change in vision. No ear pain or discharge. No sore throat. CARDIOVASCULAR: No chest pain or shortness of breath RESPIRATORY: No cough, wheezing, or hemoptysis. GASTROINTESTINAL: No nausea, vomiting, diarrhea or constipation. GENITOURINARY: No dysuria, frequency, or change in urination. MUSCULOSKELETAL: No joint or muscle swelling or pain. No neck or back pain. SKIN: No rash NEUROLOGIC: No headache, vertigo, loss of consciousness, or change in strength/ sensation. ENDOCRINE: No increased thirst. No abnormal weight change HEMATOLOGIC/LYMPHATIC: No anemia, easy bleeding, or history of blood clots. ALLERGIC/IMMUNOLOGIC: No hives or skin allergy. <David Amato - Last Filed: 06/10/17 03:30> *Physical Exam - Vital Signs Last Vital Signs Temp Pulse Resp BP Pulse Ox 97.8 F 99 H 88 H 147/101 100 06/10/17 02:03 06/10/17 02:03 06/10/17 02:03 06/10/17 02:03 06/10/17 02:03 <Vi Soto - Last Filed: 06/10/17 02:48> - Physical Exam Comments: 06/10/17 02:56 GENERAL: Awake, alert, and fully oriented, in no acute distress HEAD: No signs of trauma, normocephalic, atraumatic EYES: PERRLA, EOMI, sclera anicteric, conjunctiva clear ENT: Auricles normal inspection, hearing grossly normal, nares patent, oropharynx clear without exudates. Moist mucosa NECK: Normal ROM, supple, no lymphadenopathy, JVD, or masses LUNGS: No distress, speaks full sentences, clear to auscultation bilaterally HEART: Regular rate and rhythm, normal S1 and S2, no murmurs, rubs or gallops, peripheral pulses normal and equal bilaterally. ABDOMEN: +General abdominal tenderness. Soft, normoactive bowel sounds. No guarding, no rebound. No masses EXTREMITIES: Normal inspection, Normal range of motion, no edema. No clubbing or cyanosis. NEUROLOGICAL: Cranial nerves II through XII grossly intact. Normal speech, normal gait, no focal sensorimotor deficits SKIN: Warm, Dry, normal turgor, no rashes or lesions noted. <David Amato - Last Filed: 06/10/17 03:30> ED Treatment Course - LABORATORY CBC & Chemistry Diagram: 06/10/17 02:26 06/10/17 02:26 - ADDITIONAL ORDERS Additional order review: 06/10/17 02:26 RBC 5.35 MCV 79.2 L MCHC 32.4 RDW 13.8 MPV 8.4 Neutrophils % 58.2 D Lymphocytes % 29.9 D Monocytes % 9.6 Eosinophils % 1.6 Basophils % 0.7 - Medications Given in the ED: ED Medications Discontinued Medications Generic Name Dose Route Start Last Admin Trade Name Freq PRN Reason Stop Dose Admin Levetiracetam 1,500 mg 06/10/17 02:25 06/10/17 02:26 Keppra - PO 06/10/17 02:26 1,500 mg ONCE ONE Administration <Vi Soto - Last Filed: 06/10/17 02:48> - LABORATORY CBC & Chemistry Diagram: 06/10/17 02:26 06/10/17 02:26 <David Amato - Last Filed: 06/10/17 03:30> Medical Decision Making - Medical Decision Making 06/10/17 02:57 Mr. Daniels is a 31 yo male w/ known seizure disorder who presents following 3 seizures. Reports he is not currently taking any prophylactic seizure medications. Will load with keppra and confirm no acute cause of seizure. 06/10/17 03:28 Patient currently resting comfortably with no further seizure activity. Labs grossly wnl as below. Patient given keppra and valproate in ED with Rx sent for both to pharmacy. Will discharge with instructions to FU with PCP for further evaluation. Patient understands and verbalized agreement with plan. Laboratory Results - last 24 hr 06/10/17 06/10/17 06/10/17 02:26 02:26 02:26 WBC 9.9 D RBC 5.35 Hgb 13.7 Hct 42.4 MCV 79.2 L MCH 25.6 L MCHC 32.4 RDW 13.8 Plt Count 447 H D MPV 8.4 Neutrophils % 58.2 D Lymphocytes % 29.9 D Monocytes % 9.6 Eosinophils % 1.6 Basophils % 0.7 Sodium 139 Potassium 4.0 Chloride 102 Carbon Dioxide 26 Anion Gap 11 BUN 11 D Creatinine 0.9 Creat Clearance w eGFR > 60 Random Glucose 104 Calcium 8.7 Total Bilirubin 0.3 D AST 34 D ALT 50 Alkaline Phosphatase 93 Total Protein 7.4 Albumin 3.7 Valproic Acid < 3.000 L <David Amato - Last Filed: 06/10/17 03:30> *DC/Admit/Observation/Transfer <Vi Soto - Last Filed: 06/10/17 02:48> <David Amato - Last Filed: 06/10/17 03:30> Diagnosis at time of Disposition: Seizure - Discharge Dispostion Disposition: HOME Condition at time of disposition: Guarded - Prescriptions Prescriptions: Levetiracetam [Keppra -] 500 mg PO BID #30 tablet Valproic Acid [Depakene] 500 mg PO BID #10 capsule - Referrals Referrals: Valeriy Laurent [Primary Care Provider] - - Patient Instructions Printed Discharge Instructions: DI for Seizure Disorder -- Adult Additional Instructions: Please follow-up with primary care provider within 1-2 days. Take seizure medication as proscribed until you are able to see your regular physician.
--- NOTE | 2017-06-10 02:02 | PDOC ---
Attending Attestation - Resident Resident Name: NehemiahmichaelDavid [email or web address] - ED Attending Attestation I have performed the following: I have examined & evaluated the patient, The case was reviewed & discussed with the resident, I agree w/resident's findings & plan - HPI HPI: 06/10/17 02:49 Pt comes with seizure x 2 (one was witnessed by EMS) Pt is noncomplaint with his seizure meds. We will load him with keppra and valproate. Pt will be given prescriptions and sent home. - Physicial Exam PE: 06/11/17 02:45 Agree with resident exam - Medical Decision Making 06/11/17 02:46 Pt will follow with PMD. Presciption given to the patient.
[2017-06-10 02:18] VITALS: BP 147/101; PULSE 99; TEMP 97.8; BMI 23.7
[2017-06-10] MEDS ORDERED: levETIRAcetam 500 MG TABLET (FP) PO ONE ×2 (02:25→03:06)
[2017-06-10 02:36] LABS: BASO % 0.7 % (0-2.0); EOS % 1.6 % (0-4.5); HEMATOCRIT 42.4 % (35.4-49); HEMOGLOBIN 13.7 GM/dL (11.7-16.9); LYMPH % 29.9 % (8-40); MCH 25.6 pg (25.7-33.7); MCHC 32.4 g/dl (32.0-35.9); MEAN CELL VOLUME 79.2 fl (80-96); MEAN PLT VOLUME 8.4 fl (7.5-11.1); MONO % 9.6 % (3.8-10.2); NEUT % 58.2 % (42.8-82.8); PLATELET COUNT 447 K/MM3 (134-434); RBC 5.35 M/mm3 (4.00-5.60); RDW 13.8 % (11.9-15.9); WHITE BLOOD COUNT 9.9 K/mm3 (4.0-10.0)
[2017-06-10 03:09] LABS: ALBUMIN 3.7 g/dl (3.4-5.0); ANION GAP 11 (8-16); BLOOD UREA NITROGEN 11 mg/dL (7-18); CALCIUM 8.7 mg/dL (8.5-10.1); CHLORIDE 102 mmol/L (98-107); CO2 26 mmol/L (21-32); CREATININE 0.9 mg/dL (0.7-1.3); GLUCOSE,RANDOM 104 mg/dL (74-106); SGPT/ALT 50 U/L (12-78); SODIUM 139 mmol/L (136-145)
[2017-06-10 03:10] LABS: ALK PHOS 93 U/L (45-117); BILIRUBIN,TOTAL 0.3 mg/dL (0.2-1.0); TOT PROT 7.4 g/dl (6.4-8.2)
[2017-06-10 03:11] LABS: SGOT/AST 34 U/L (15-37)
[2017-06-10] MEDS ORDERED: VALPROIC ACID 250 MG CAPSULE PO ONE (03:15)
== END 2017-06-10 04:04 | disposition home or self-care (01) ==
LOC: JER 01:29
DX: G40.802 Other epilepsy, not intractable, without status epilepticus (principal); I10 Essential (primary) hypertension; F41.8 Other specified anxiety disorders; M41.9 Scoliosis, unspecified
CPT/HCPCS: 36415; 80053; 80164; 85025; 99283-25

== ENCOUNTER 2017-10-14 02:28 | Inpatient (IN) | payer OTHER ==
--- NOTE | 2017-10-14 03:32 | PDOC ---
History of Present Illness - History of Present Illness Initial Comments: 10/14/17 03:27 32 yo M with h/o HTN, homelessness, alcohol dependence and withdrawal, nicotine dependence, PCP abuse, cannabis dependence, benzodiazepene abuse, cocaine abuse , seizure disorder, and bipolar disorder who presents with odynophagia. Patient mildly agitated and uncooperative with report. Poor historian. History is limited. Patient reports 3 weeks of throat pain and irritation following ingested glass. Patient received CT neck report at [facility] with unknown report. Patient arrives EMS with stable vital signs and report of possible/mild uvula edema. Received 50 mg diphenhydramine per EMS in route. Denies F/C, N/V, CP, cough, hemoptysis, SOB, wheezing, abdominal pain, diarrhea , constipation, urinary complaints, weakness, lightheadedness, sensory changes. PMHx: As noted above SHx: As noted above Allergies: NKDA <Misha Jenkins - Last Filed: 10/14/17 06:49> <Mino Tucker - Last Filed: 10/14/17 07:46> - General Chief Complaint: Edema Stated Complaint: EDEMA Time Seen by Provider: 10/14/17 02:33 Past History - Past Medical History Anemia: No Asthma: No Cancer: No Cardiac Disorders: No CVA: No COPD: No CHF: No Dementia: No Diabetes: No GI Disorders: No Disorders: No HTN: Yes (Norvasc ) Hypercholesterolemia: No Kidney Stones: No Liver Disease: No Seizures: Yes (alcohol related-last episde was in 08/15/17) Thyroid Disease: No - Surgical History Abdominal Surgery: No (left inguinal hernia repair at childhood) Appendectomy: No Cardiac Surgery: No Cholecystectomy: No Lung Surgery: No Neurologic Surgery: No Orthopedic Surgery: Yes (fx, chin, left side jaw at age 14) - Reproductive History Testicular Surgery: No - Immunization History Immunization Up to Date: Yes - Suicide/Smoking/Psychosocial Hx Smoking Status: Yes Smoking History: Never smoked Have you smoked in the past 12 months: No Number of Cigarettes Smoked Daily: 20 Cigars Per Day: 0 Information on smoking cessation initiated: No 'Breaking Loose' booklet given: 08/19/17 Hx Alcohol Use: No Drug/Substance Use Hx: No Substance Use Type: Alcohol, Cocaine, Marijuana, Tranquilizers Hx Substance Use Treatment: Yes ([facility] 2017) <Misha Jenkins - Last Filed: 10/14/17 06:49> <Mino Tucker - Last Filed: 10/14/17 07:46> - Past Medical History Allergies/Adverse Reactions: Allergies Allergy/AdvReac Type Severity Reaction Status Date / Time ibuprofen [From Motrin] Allergy Severe Swelling Verified 10/14/17 02:30 peanut Allergy Severe Swelling Verified 10/14/17 02:30 Home Medications: Ambulatory Orders Mirtazapine [Remeron -] 45 mg PO HS #30 tablet 08/20/17 Quetiapine Fumarate [Seroquel] 100 mg PO HS #30 tablet 08/20/17 Amlodipine Besylate 10 mg PO DAILY #30 tablet 08/22/17 Review of Systems - Review of Systems Comments:: 10/14/17 03:32 GENERAL/CONSTITUTIONAL: No fever or chills. No weakness. HEAD, EYES, EARS, NOSE AND THROAT: + throat pain. No change in vision. No ear pain or discharge. CARDIOVASCULAR: No chest pain or shortness of breath RESPIRATORY: No cough, wheezing, or hemoptysis. GASTROINTESTINAL: No nausea, vomiting, diarrhea or constipation. GENITOURINARY: No dysuria, frequency, or change in urination. MUSCULOSKELETAL: No joint or muscle swelling or pain. No neck or back pain. SKIN: No rash NEUROLOGIC: No headache, vertigo, loss of consciousness, or change in strength/ sensation. ENDOCRINE: No increased thirst. No abnormal weight change HEMATOLOGIC/LYMPHATIC: No anemia, easy bleeding, or history of blood clots. ALLERGIC/IMMUNOLOGIC: No hives or skin allergy. <GregoryMisha - Last Filed: 10/14/17 06:49> *Physical Exam - Vital Signs Last Vital Signs Temp Pulse Resp BP Pulse Ox 97.3 F L 82 18 148/89 99 10/14/17 02:30 10/14/17 02:30 10/14/17 02:30 10/14/17 02:30 10/14/17 02:30 - Physical Exam Comments: 10/14/17 03:33 GENERAL: Awake, alert, and oriented to self. Patient uncooperative with physical exam. Physical exam limited. HEAD: No signs of trauma, normocephalic, atraumatic EYES: PERRLA, EOMI, sclera anicteric, conjunctiva clear ENT: Hoarse voice. Posterior oropharynx with R sided soft palate edema, and mild left sided uvula deviation.Mild R sided stridor. Hearing grossly normal, nares patent. Patient tolerating oral secretions. Absent glossal edema. exudates. Moist mucosa NECK: Normal ROM, supple, no lymphadenopathy, JVD, or masses LUNGS: No distress, speaks full sentences, clear to auscultation bilaterally HEART: Regular rate and rhythm, normal S1 and S2, no murmurs, rubs or gallops, peripheral pulses normal and equal bilaterally. EXTREMITIES : Normal inspection, Normal range of motion, no edema. No clubbing or cyanosis. SKIN: Warm, Dry, normal turgor, no rashes or lesions noted <Misha Jenkins - Last Filed: 10/14/17 06:49> - Vital Signs Last Vital Signs Temp Pulse Resp BP Pulse Ox 97.3 F L 82 18 148/89 99 10/14/17 02:30 10/14/17 02:30 10/14/17 02:30 10/14/17 02:30 10/14/17 02:30 <Mino Tucker - Last Filed: 10/14/17 07:46> ED Treatment Course - LABORATORY CBC & Chemistry Diagram: 10/14/17 06:30 10/14/17 06:30 <Misha Jenkins - Last Filed: 10/14/17 06:49> - LABORATORY CBC & Chemistry Diagram: 10/14/17 06:30 10/14/17 06:30 - ADDITIONAL ORDERS Additional order review: Laboratory Results 10/14/17 06:30 Sodium 138 Potassium 4.0 Chloride 104 Carbon Dioxide 27 Anion Gap 7 L BUN 7 D Creatinine 0.7 Creat Clearance w eGFR > 60 Random Glucose 99 Calcium 8.7 Total Bilirubin 0.7 D AST 21 ALT 31 D Alkaline Phosphatase 74 D Total Protein 8.0 D Albumin 3.6 10/14/17 06:30 RBC 5.44 MCV 77.9 L MCHC 33.8 RDW 13.8 MPV 7.8 Neutrophils % 68.1 Lymphocytes % 13.6 D Monocytes % 12.2 H Eosinophils % 5.3 H D Basophils % 0.8 - Medications Given in the ED: ED Medications Discontinued Medications Generic Name Dose Route Start Last Admin Trade Name Freq PRN Reason Stop Dose Admin Dexamethasone Sodium Phosphate 10 mg 10/14/17 05:06 10/14/17 05:30 Decadron Injection - IVPUSH 10/14/17 05:07 10 mg ONCE ONE Administration Morphine Sulfate 4 mg 10/14/17 05:06 10/14/17 05:30 Morphine Injection - IVPUSH 10/14/17 05:07 4 mg ONCE ONE Administration <Mino Tucker - Last Filed: 10/14/17 07:46> Medical Decision Making - Medical Decision Making 10/14/17 03:36 32 yo M with h/o HTN, homelessness, alcohol dependence and withdrawal, nicotine dependence, PCP abuse, cannabis dependence, benzodiazepene abuse, cocaine abuse , seizure disorder, and bipolar disorder BIBA with odynophagia, and outside report of uvula edema. Arrives A&Ox3, VSS, with soft palate edema, and L sided uvula deviation. Reports glass ingestion x 1 day ago. R/o soft tissue abscess , retropharyngeal abscess. ED Course: CT NECK SOFT TISSUE WITH IV CON Morphine, Decadron 10/14/17 06:49 WBC: 12.7 <Misha Jenkins - Last Filed: 10/14/17 06:49> *DC/Admit/Observation/Transfer <Misha Jenkins - Last Filed: 10/14/17 06:49> - Discharge Dispostion Admit: Yes - Attestations Physician Attestion: 10/14/17 07:43 I attest to the information provided in this note. <Mino Tucker - Last Filed: 10/14/17 07:46> Diagnosis at time of Disposition: Odynophagia - Discharge Dispostion Condition at time of disposition: Stable - Referrals Referrals: Valeriy Laurent [Primary Care Provider] - Brendon Jang MD [Staff Physician] - - Patient Instructions Printed Discharge Instructions: DI for Oropharyngeal Dysphagia Additional Instructions: Please return to the emergency department with any new or worsening symptoms or concerns. Please follow up with ear,nose,throat doctor within 24-72 hours. - Post Discharge Activity
[2017-10-14] MEDS ORDERED: morphine CARPU-JECT 4 MG/1 ML DISP.SYRIN IVPUSH ONE (05:06)
[2017-10-14] MEDS ORDERED: DEXAMETHASONE SOD PHOSPHATE 10 MG/1 ML VIAL IVPUSH ONE (05:06)
[2017-10-14] MEDS ORDERED: MORPHINE SULFATE 10 MG/1 ML *VIAL ONE (05:12)
[2017-10-14] MEDS ORDERED: DEXAMETHASONE SOD PHOSPHATE 10 MG/1 ML VIAL ONE (05:23)
--- NOTE | 2017-10-14 06:00 | PDOC ---
Attending Attestation - HPI HPI: 10/14/17 06:03 The patient is a 32 year old undomiciled male, with a significant past medical history of hypertension, seizure disorder, bipolar disorder, alcohol dependence and withdrawal, nicotine dependence, PCP abuse, cannabis dependence, benzodiazepine abuse and cocaine abuse who presents to the emergency department via EMS with odynophagia since yesterday. The patient reports that yesterday, he ingested a piece of glass but had it removed at another hospital. The patient states that while at the other hospital, they did imaging and performed a procedure to remove the ingested glass. He reports, "they stuck a tube down my throat". Since then, the patient states that his throat has felt swollen and that he has been experiencing pain with swallowing. The patient denies fever, chills, headache, cough, hemoptysis, shortness of breath, chest pain, nausea or vomiting. Allergies: Ibuprofen, Peanut. Past Surgical History: Left inguinal hernia repair; Orthopedic surgery (left jaw ). Social History: Current everyday smoker. See HPI. - Physicial Exam PE: 10/14/17 06:06 Vitals: Triage vital signs reviewed. General Appearance: No acute distress, well nourished, well developed. Head: Atraumatic, normocephalic. Eyes: Pupils equal round reactive, extraocular movements intact. Ears: TM's normal bilaterally. Nose: Nares patent bilaterally. No nasal congestion. Throat: Right soft palate is swollen and edematous. Slight uvula deviation. Posterior oropharynx without erythema. Mucous membranes moist. Neck: Supple. No nuchal rigidity. Chest Wall: Nontender. Cardiac: Regular rate and rhythm. No murmurs, no rubs, no gallops. Lungs: Right sided stridor. Clear to auscultation bilaterally, good air movement bilaterally. Extremities: Full range of motion to all extremities, no cyanosis, clubbing, or edema. Skin: Warm and dry, no rashes or lesions, no petechiae. Psych: Normal mood, normal affect. - Medical Decision Making 10/14/17 06:04 The patient is a 32 year old undomiciled male, with a significant past medical history of hypertension, seizure disorder, bipolar disorder, alcohol dependence and withdrawal, nicotine dependence, PCP abuse, cannabis dependence, benzodiazepine abuse and cocaine abuse who presents to the emergency department via EMS with odynophagia since yesterday. The patient reports that yesterday, he ingested a piece of glass but had it removed at another hospital. The patient states that while at the other hospital, they did imaging and performed a procedure to remove the ingested glass. He reports, "they stuck a tube down my throat". Since then, the patient states that his throat has felt swollen and that he has been experiencing pain with swallowing. The patient denies fever, chills, headache, cough, hemoptysis, shortness of breath, chest pain, nausea or vomiting. Allergies: Ibuprofen, Peanut. Past Surgical History: Left inguinal hernia repair; Orthopedic surgery (left jaw ). Social History: Current everyday smoker. See HPI. Documentation prepared by Rissa Humphrey, acting as medical representative for Chris House MD. <Rissa Humphrey - Last Filed: 10/14/17 06:06> - Resident Resident Name: Jabier Jenkinsson - ED Attending Attestation I have performed the following: I have examined & evaluated the patient, The case was reviewed & discussed with the resident, I agree w/resident's findings & plan, Exceptions are as noted - Medical Decision Making Moderate soft palate swelling and edema. Possibly traumatic from foreign body removal yesterday. Decadron ordered. CT neck with IV contrast ordered and pending [address] Zuniga to follow patient CT results and reassess. <Chris House - Last Filed: 10/14/17 06:56>
[2017-10-14] MEDS ORDERED: SODIUM CHLORIDE 1,000 ML IV STA ×2 (06:35→07:32)
[2017-10-14 06:37] LABS: BASO % 0.8 % (0-2.0); EOS % 5.3 % (0-4.5); HEMATOCRIT 42.4 % (35.4-49); HEMOGLOBIN 14.3 GM/dL (11.7-16.9); LYMPH % 13.6 % (8-40); MCH 26.3 pg (25.7-33.7); MCHC 33.8 g/dl (32.0-35.9); MEAN CELL VOLUME 77.9 fl (80-96); MEAN PLT VOLUME 7.8 fl (7.5-11.1); MONO % 12.2 % (3.8-10.2); NEUT % 68.1 % (42.8-82.8); PLATELET COUNT 436 K/MM3 (134-434); RBC 5.44 M/mm3 (4.00-5.60); RDW 13.8 % (11.9-15.9); WHITE BLOOD COUNT 12.7 K/mm3 (4.0-10.0)
[2017-10-14 07:03] LABS: ALBUMIN 3.6 g/dl (3.4-5.0); ALK PHOS 74 U/L (45-117); ANION GAP 7 (8-16); BILIRUBIN,TOTAL 0.7 mg/dL (0.2-1.0); BLOOD UREA NITROGEN 7 mg/dL (7-18); CALCIUM 8.7 mg/dL (8.5-10.1); CHLORIDE 104 mmol/L (98-107); CO2 27 mmol/L (21-32); CREATININE 0.7 mg/dL (0.7-1.3); GLUCOSE,RANDOM 99 mg/dL (74-106); SGOT/AST 21 U/L (15-37); SGPT/ALT 31 U/L (12-78); SODIUM 138 mmol/L (136-145)
--- NOTE | 2017-10-14 07:56 | PDOC ---
*Physical Exam - Vital Signs Last Vital Signs Temp Pulse Resp BP Pulse Ox 97.3 F L 82 18 148/89 99 10/14/17 02:30 10/14/17 02:30 10/14/17 02:30 10/14/17 02:30 10/14/17 02:30 - Physical Exam Comments: 10/14/17 07:55 GENERAL: Awake, alert, and fully oriented, in no acute distress HEAD: No signs of trauma, normocephalic, atraumatic EYES: PERRLA, EOMI, sclera anicteric, conjunctiva clear ENT: R sided posterior palatal edema. L uvular deviation. Trace stridor noted on auscultation, R>L. Auricles normal inspection, hearing grossly normal, nares patent, oropharynx clear without exudates. Moist mucosa NECK: Normal ROM, supple, no lymphadenopathy, JVD, or masses LUNGS: No distress, speaks full sentences, clear to auscultation bilaterally HEART: Regular rate and rhythm, normal S1 and S2, no murmurs, rubs or gallops, peripheral pulses normal and equal bilaterally. ABDOMEN: Soft, nontender, normoactive bowel sounds. No guarding, no rebound. No masses EXTREMITIES : Normal inspection, Normal range of motion, no edema. No clubbing or cyanosis. NEUROLOGICAL: Cranial nerves II through XII grossly intact. Normal speech, normal gait, no focal sensorimotor deficits SKIN: Warm, Dry, normal turgor, no rashes or lesions noted 10/14/17 08:00 ED Treatment Course - LABORATORY CBC & Chemistry Diagram: 10/14/17 06:30 10/14/17 06:30 - ADDITIONAL ORDERS Additional order review: Laboratory Results 10/14/17 06:30 Sodium 138 Potassium 4.0 Chloride 104 Carbon Dioxide 27 Anion Gap 7 L BUN 7 D Creatinine 0.7 Creat Clearance w eGFR > 60 Random Glucose 99 Calcium 8.7 Total Bilirubin 0.7 D AST 21 ALT 31 D Alkaline Phosphatase 74 D Total Protein 8.0 D Albumin 3.6 10/14/17 06:30 RBC 5.44 MCV 77.9 L MCHC 33.8 RDW 13.8 MPV 7.8 Neutrophils % 68.1 Lymphocytes % 13.6 D Monocytes % 12.2 H Eosinophils % 5.3 H D Basophils % 0.8 - Medications Given in the ED: ED Medications Discontinued Medications Generic Name Dose Route Start Last Admin Trade Name Adriana PRN Reason Stop Dose Admin Dexamethasone Sodium Phosphate 10 mg 10/14/17 05:06 10/14/17 05:30 Decadron Injection - IVPUSH 10/14/17 05:07 10 mg ONCE ONE Administration Morphine Sulfate 4 mg 10/14/17 05:06 10/14/17 05:30 Morphine Injection - IVPUSH 10/14/17 05:07 4 mg ONCE ONE Administration Medical Decision Making - Medical Decision Making 32 yo M with h/o HTN, homelessness, alcohol dependence and withdrawal, nicotine dependence, PCP abuse, cannabis dependence, benzodiazepene abuse, cocaine abuse , seizure disorder, and bipolar disorder who presents with odynophagia after OP trauma from biting into "glass" three weeks ago. Pt with audible stridor, palatal edema and Uvular deviation to L. Currently maintaining airway, respiratory status stable. Will received CT soft tissue of neck for further imaging evaluation. Care endorsed to me this AM by resident Misha Jenkins. Plan: f/u CT soft tissue neck ENT consult Likely observation pt 10/14/17 11:08 Pt PMD Valeriy Laurent. Called placed to Dr. Pal. Plan to discuss case. 10/14/17 12:[address] Pal. Agrees with obs admission. Plan for GI consult (Dr. Perez) , ENT consult (Dr. Jang), Pepcid 20mg IV, FOBT. *DC/Admit/Observation/Transfer Diagnosis at time of Disposition: Odynophagia - Discharge Dispostion Condition at time of disposition: Stable Decision to Admit order: Yes Decision to Admit order Date/Time: CT scan notable for significant tonsillar and uvula edema encroaching in airway. Will admit for observation to hospitalist group. Will consult Dr. Jang, ENT coroner/medical examiner. 10/14/17 10:18 - Referrals - Patient Instructions - Post Discharge Activity
[2017-10-14] MEDS ORDERED: FAMOTIDINE IV 20 MG/12 ML VIAL IVPUSH ONE (12:11)
[2017-10-14] MEDS ORDERED: FAMOTIDINE 20 MG/50 ML IVPB 20 MG/50 ML MG IVPB ONE (12:46)
[2017-10-14] MEDS ORDERED: ceFAZolin SODIUM 1 GM VIAL IM ONE (13:05)
[2017-10-14 13:10] VITALS: BMI 22.4
[2017-10-14] MEDS ORDERED: CEFAZOLIN 1 GM in DEXTROSE 5%-WATER - 50 ML IVPB ONE (15:00)
[2017-10-14] MEDS ORDERED: ceFAZolin SODIUM 1 GM VIAL ONE (15:02)
[2017-10-14] MEDS ORDERED: DEXTROSE 5%-WATER - 50 ML IVPB ONE (15:02)
--- NOTE | 2017-10-14 16:14 | PN ---
Progress Note (short form) - Note Progress Note: PATIENT SEEN AND EXAMINED INTERVIEWED PATIENT HE HAS NEVER SEEN ANY DOCTOR AT THE [facility] OR DR WILLY MORGAN. I SPOKE WITH THE HOSPITALIST OFFICE AND WILL TRANSFER TO THEIR SERVICE. STARTING SOFT DIET
--- NOTE | 2017-10-14 17:22 | CON.GI ---
Consult - Alcohol/Substance Use Hx Alcohol Use: No - Smoking History Smoking history: Never smoked Have you smoked in the past 12 months: No Aproximately how many cigarettes per day: 20 Home Medications - Allergies Allergies/Adverse Reactions: Allergies Allergy/AdvReac Type Severity Reaction Status Date / Time ibuprofen [From Motrin] Allergy Severe Swelling Verified 10/14/17 02:30 peanut Allergy Severe Swelling Verified 10/14/17 02:30 - Home Medications Home Medications: Ambulatory Orders Mirtazapine [Remeron -] 45 mg PO HS #30 tablet 08/20/17 Quetiapine Fumarate [Seroquel] 100 mg PO HS #30 tablet 08/20/17 Amlodipine Besylate 10 mg PO DAILY #30 tablet 08/22/17 Family Disease History - Family Disease History Family Disease History: Diabetes: Grandparent, Father (HTN), Mother (HTN; STOPPED ETOH AND DRUGS 19 YRS. AGO), Heart Disease: Mother, Other: Father, Mother Physical Exam-GI Vital Signs: Vital Signs Temperature 98.3 F 10/14/17 15:23 Pulse Rate 71 10/14/17 15:23 Respiratory Rate 20 10/14/17 15:23 Blood Pressure 120/74 10/14/17 15:23 O2 Sat by Pulse Oximetry (%) 99 10/14/17 14:45 Labs: CBC, BMP 10/14/17 06:30 10/14/17 06:30
[2017-10-14] MEDS ORDERED: SODIUM CHLORIDE 100 ML IVPB ONE ×2 (17:39→20:00)
[2017-10-14] MEDS ORDERED: AMPICILLIN NA/SULBACTAM NA 1.5 GM VIAL ONE ×2 (17:39→20:00)
[2017-10-14] MEDS: AMPICILLIN NA/SULBACTAM NA 1.5 GM in SODIUM CHLORIDE 100 ML IVPB SCH ×2 (17:41→21:45)
[2017-10-14] MEDS ORDERED: DEXAMETHASONE SOD PHOSPHATE 4 MG/1 ML VIAL IVPUSH SCH (18:00)
[2017-10-14] MEDS: SODIUM CHLORIDE 1,000 ML IV SCH (18:24)
[2017-10-14] MEDS: DEXAMETHASONE SOD PHOSPHATE 4 MG/1 ML VIAL IVPUSH SCH (18:28)
--- NOTE | 2017-10-14 18:30 | HP ---
<Cirilo Brenner - Last Filed: 10/14/17 19:26> CHIEF COMPLAINT: difficulty swallowing PCP: does not have PCP. Goes to hospitals/shelters/free clinics HISTORY OF PRESENT ILLNESS: Pt is a 32 y/o M with HTN and extensive history of substance abuse (cocaine, crack, K2, PCP, Benzos, Cannabis, EtOH, Nicotine - denies IVDA adamantly) who presented to the ED with R throat swelling/pain. Pt states that 3 weeks ago he was fed some broken glass in soup. The following day, he developed right sided throat pain. He ignored if several days before going to [facility] where he had a CT neck, which he sates was "fine", and a procedure with a "tube down the throat" in which glass was suctioned out. Pt was sent home with Abx. His symptoms did not resolve for several weeks and so he came to R. Pt states he's been spitting up blood from his mouth intermittently during this time. He had one episode of unwitnessed hematemesis yesterday, which he describes as yellow-brown vomit with spots of blood. He has tried gargling salt water and peroxide without improvement. On the ambulance ride to the hospital, he states his tongue was swollen, and he was given Benadryl by the activities officer, which helped. Pt also complains of 2d constipation. ER course was notable for: (1) vital signs wnl (2) leukocytosis (3) CT neck showing tonsillitis with phlegmon Recent Travel: denies PAST MEDICAL HISTORY: HTN, substance abuse PAST SURGICAL HISTORY: denies Social History: Pt states he is "somewhat homeless". He is currently staying with a friend, Shayy at [address] [place] [address] apt in [place]. Smokin/2 ppd since 18 y/o Alcohol: 1/2 gallon rum daily since 20 y/o - last drink yesterday Drugs: cocaine- last use yest, crack, K2, PCP, Benzos, Cannabis, EtOH, Nicotine - denies IVDA adamantly Family History: Allergies ibuprofen [From Motrin] Allergy (Severe, Verified 10/14/17 02:30) Swelling peanut Allergy (Severe, Verified 10/14/17 02:30) Swelling HOME MEDICATIONS: Home Medications Medication Instructions Recorded Mirtazapine [Remeron -] 45 mg PO HS #30 tablet 08/20/17 Amlodipine Besylate 10 mg PO DAILY #30 tablet 08/22/17 Divalproex [Depakote -] 500 mg PO BID 10/14/17 Doxepin HCl [Sinequan -] 15 mg PO DAILY 10/14/17 Levetiracetam [Keppra] 750 mg PO BID 10/14/17 REVIEW OF SYSTEMS CONSTITUTIONAL: Absent: fever, chills, diaphoresis, generalized weakness, malaise, loss of appetite, weight change HEENT: throat pain, throat swelling, difficulty swallowing Absent: rhinorrhea, nasal congestion, , mouth swelling, ear pain, eye pain, visual changes CARDIOVASCULAR: Absent: chest pain, syncope, palpitations, irregular heart rate, lightheadedness , peripheral edema RESPIRATORY: Absent: cough, shortness of breath, dyspnea with exertion, orthopnea, wheezing, stridor, hemoptysis GASTROINTESTINAL: Absent: abdominal pain, abdominal distension, nausea, vomiting, diarrhea, constipation, melena, hematochezia GENITOURINARY: Absent: dysuria, frequency, urgency, hesitancy, hematuria, flank pain, genital pain MUSCULOSKELETAL: Absent: myalgia, arthralgia, joint swelling, back pain, neck pain SKIN: Absent: rash, itching, pallor HEMATOLOGIC/IMMUNOLOGIC: Absent: easy bleeding, easy bruising, lymphadenopathy, frequent infections ENDOCRINE: Absent: unexplained weight gain, unexplained weight loss, heat intolerance, cold intolerance NEUROLOGIC: Absent: headache, focal weakness or paresthesias, dizziness, unsteady gait, seizure, mental status changes, bladder or bowel incontinence PSYCHIATRIC: Absent: anxiety, depression, suicidal or homicidal ideation, hallucinations. PHYSICAL EXAMINATION Vital Signs - 24 hr 10/14/17 10/14/17 10/14/17 02:30 13:02 13:30 Temperature 97.3 F L 98.0 F Pulse Rate 82 68 65 Respiratory 18 18 20 Rate Blood Pressure 148/89 135/64 110/64 O2 Sat by Pulse 99 98 Oximetry (%) 10/14/17 10/14/17 14:45 15:23 Temperature 98.3 F Pulse Rate 71 Respiratory 20 Rate Blood Pressure 120/74 O2 Sat by Pulse 99 Oximetry (%) GENERAL: Awake, alert, and fully oriented, in no acute distress. Anxious but intermittently suddenly drowsy. HEAD: Normal with no signs of trauma. EYES: extraocular movements intact, sclera anicteric, conjunctiva clear. No lid lag. EARS, NOSE, THROAT: R pharynx swelling with uvula deviation. Moist mucous membranes. NECK: R tender lymphadenopathy, JVD, or masses. LUNGS: Breath sounds equal, clear to auscultation bilaterally. No wheezes, and no crackles. No accessory muscle use. HEART: Regular rate and rhythm, normal S1 and S2 without murmur, rub or gallop. ABDOMEN: Soft, nontender, not distended, normoactive bowel sounds, no guarding, no rebound, no masses. No hepatomegaly or splenomegaly. MUSCULOSKELETAL: Normal range of motion at all joints. No bony deformities or tenderness. No CVA tenderness. UPPER EXTREMITIES: 2+ pulses, warm, well-perfused. No cyanosis. No clubbing. No peripheral edema. LOWER EXTREMITIES: 2+ pulses, warm, well-perfused. No calf tenderness. No peripheral edema. NEUROLOGICAL: Cranial nerves II-XII intact. Normal speech. Normal gait. PSYCHIATRIC: Cooperative. Good eye contact. Appropriate mood and affect. SKIN: Warm, dry, normal turgor, no rashes or lesions noted, normal capillary refill. Laboratory Results - last 24 hr 10/14/17 10/14/17 06:30 06:30 WBC 12.7 H D RBC 5.44 Hgb 14.3 Hct 42.4 MCV 77.9 L MCH 26.3 MCHC 33.8 RDW 13.8 Plt Count 436 H D MPV 7.8 Neutrophils % 68.1 Lymphocytes % 13.6 D Monocytes % 12.2 H Eosinophils % 5.3 H D Basophils % 0.8 Sodium 138 Potassium 4.0 Chloride 104 Carbon Dioxide 27 Anion Gap 7 L BUN 7 D Creatinine 0.7 Creat Clearance w eGFR > 60 Random Glucose 99 Calcium 8.7 Total Bilirubin 0.7 D AST 21 ALT 31 D Alkaline Phosphatase 74 D Total Protein 8.0 D Albumin 3.6 ASSESSMENT/PLAN: Pt is a 32 y/o M with PMH HTN and polysubstance abuse who presented to ED with 3 weeks throat pain and swelling. Pt admitted for evaluation and workup of peritonsillar abscess. #Peritonsilar abscess -Pt went to [facility] and had some imaging and procedure done. Unclear from history. -Pt got 10 Decadron in ED -CT showed peritonsilar abscess -Decadron -GI consult: Ana burgess -ENT consult: Dr. Jang performed bedside laryngoscopy. Does not feel airway is threatened at this time. -Protonix BID -Soft diet -Tylenol #Polysubstance abuse -last cocaine yest -last EtOH yest -Pt not actively withdrawing in this moment. VSS -Monitor closely. -Thiamine #HTN -continue home meds -Norvasc -Note: In light of pt's substance abuse and recent cocaine, do NOT give beta blockers for HTN at this time #Seizure disorder -Cont home meds -Depakote -Depakote level -Keppra -Keppra level #Anxiety/Depression -continue home meds -Remeron -Doxipine #FEN -NS @ 100 -lytes wnl -soft diet #PPx -SCDs -Protonix #Dispo -Admitted for peritonsilar abscess Cirilo Brenner MD PGY-1 IM Visit type - Emergency Visit Emergency Visit: No - New Patient This patient is new to me today: Yes Date on this admission: 10/14/17 - Critical Care Critical Care patient: No <Caterina Andujar - Last Filed: 10/16/17 15:17> CHIEF COMPLAINT: PCP: HISTORY OF PRESENT ILLNESS: ER course was notable for: (1) (2) (3) Recent Travel: PAST MEDICAL HISTORY: PAST SURGICAL HISTORY: Social History: Smoking: Alcohol: Drugs: Family History: Allergies ibuprofen [From Motrin] Allergy (Severe, Verified 10/14/17 02:30) Swelling peanut Allergy (Severe, Verified 10/14/17 02:30) Swelling HOME MEDICATIONS: Home Medications Medication Instructions Recorded Mirtazapine [Remeron -] 45 mg PO HS #30 tablet 08/20/17 Amlodipine Besylate 10 mg PO DAILY #30 tablet 08/22/17 Divalproex [Depakote -] 500 mg PO BID 10/14/17 Doxepin HCl [Sinequan -] 15 mg PO DAILY 10/14/17 Levetiracetam [Keppra] 750 mg PO BID 10/14/17 REVIEW OF SYSTEMS CONSTITUTIONAL: Absent: fever, chills, diaphoresis, generalized weakness, malaise, loss of appetite, weight change HEENT: Absent: rhinorrhea, nasal congestion, throat pain, throat swelling, difficulty swallowing, mouth swelling, ear pain, eye pain, visual changes CARDIOVASCULAR: Absent: chest pain, syncope, palpitations, irregular heart rate, lightheadedness , peripheral edema RESPIRATORY: Absent: cough, shortness of breath, dyspnea with exertion, orthopnea, wheezing, stridor, hemoptysis GASTROINTESTINAL: Absent: abdominal pain, abdominal distension, nausea, vomiting, diarrhea, constipation, melena, hematochezia GENITOURINARY: Absent: dysuria, frequency, urgency, hesitancy, hematuria, flank pain, genital pain MUSCULOSKELETAL: Absent: myalgia, arthralgia, joint swelling, back pain, neck pain SKIN: Absent: rash, itching, pallor HEMATOLOGIC/IMMUNOLOGIC: Absent: easy bleeding, easy bruising, lymphadenopathy, frequent infections ENDOCRINE: Absent: unexplained weight gain, unexplained weight loss, heat intolerance, cold intolerance NEUROLOGIC: Absent: headache, focal weakness or paresthesias, dizziness, unsteady gait, seizure, mental status changes, bladder or bowel incontinence PSYCHIATRIC: Absent: anxiety, depression, suicidal or homicidal ideation, hallucinations. PHYSICAL EXAMINATION Vital Signs - 24 hr 10/15/17 10/15/17 10/15/17 18:00 20:00 21:00 Temperature 98.3 F 98.5 F Pulse Rate 85 94 H Respiratory 20 20 20 Rate Blood Pressure 123/65 128/62 O2 Sat by Pulse 99 Oximetry (%) 10/16/17 10/16/17 10/16/17 02:00 06:00 13:58 Temperature 97.7 F 97.9 F 98.5 F Pulse Rate 67 66 86 Respiratory 20 20 18 Rate Blood Pressure 125/51 118/51 132/61 O2 Sat by Pulse Oximetry (%) GENERAL: Awake, alert, and fully oriented, in no acute distress. HEAD: Normal with no signs of trauma. EYES: Pupils equal, round and reactive to light, extraocular movements intact, sclera anicteric, conjunctiva clear. No lid lag. EARS, NOSE, THROAT: Ears normal, nares patent, oropharynx clear without exudates. Moist mucous membranes. NECK: Normal range of motion, supple without lymphadenopathy, JVD, or masses. LUNGS: Breath sounds equal, clear to auscultation bilaterally. No wheezes, and no crackles. No accessory muscle use. HEART: Regular rate and rhythm, normal S1 and S2 without murmur, rub or gallop. ABDOMEN: Soft, nontender, not distended, normoactive bowel sounds, no guarding, no rebound, no masses. No hepatomegaly or splenomegaly. MUSCULOSKELETAL: Normal range of motion at all joints. No bony deformities or tenderness. No CVA tenderness. UPPER EXTREMITIES: 2+ pulses, warm, well-perfused. No cyanosis. No clubbing. No peripheral edema. LOWER EXTREMITIES: 2+ pulses, warm, well-perfused. No calf tenderness. No peripheral edema. NEUROLOGICAL: Cranial nerves II-XII intact. Normal speech. Normal gait. PSYCHIATRIC: Cooperative. Good eye contact. Appropriate mood and affect. SKIN: Warm, dry, normal turgor, no rashes or lesions noted, normal capillary refill. Laboratory Results - last 24 hr 10/16/17 10/16/17 07:10 07:10 WBC 19.4 H D RBC 5.20 Hgb 13.7 Hct 40.8 MCV 78.6 L MCH 26.3 MCHC 33.5 RDW 13.6 Plt Count 565 H MPV 8.5 Neutrophils % 91.2 H Lymphocytes % 5.3 L D Monocytes % 3.3 L Eosinophils % 0.0 Basophils % 0.2 Sodium 140 Potassium 4.9 Chloride 106 Carbon Dioxide 27 Anion Gap 7 L BUN 15 D Creatinine 0.7 Creat Clearance w eGFR > 60 Random Glucose 141 H Calcium 8.6 Total Bilirubin 0.2 D AST 8 L D ALT 21 Alkaline Phosphatase 74 Total Protein 7.3 Albumin 2.9 L ASSESSMENT/PLAN: Hospitalist Screening - Colonoscopy Questionnaire Colonoscopy Questionnaire: Colonoscopy Questionnaire - Patient: 50 - 75 years old and never had a screening colonoscopy: Unknown History of colon or rectal polyps, or CA: Unknown History of IBD, Crohn's disease or UC: Unknown History of abdominal radiation therapy as a child: Unknown - Relative: 1 with colon or rectal CA, or polyps at age 60 or younger: Unknown Colon or rectal CA diagnosed at age 45 or younger: Unknown Multiple relatives with colon or rectal CA: Unknown - Outcome: Screening Result: Negative Screen
--- NOTE | 2017-10-14 18:37 | CON.ENT ---
Consult Consult Specialty:: ENT Reason for Consultation:: throat swelling - History of Present Illness Chief Complaint: throat pain History of Present Illness: 32 yo M with polysubstance abuse, HTN, homelessness reports ?broken glass in throat ~ 2 weeks ago, went to [facility] ER and glass removed (method used?) not clear if he was covered with oral antibiotics after has had progressive pain and discomfort, presented to ER today complaining of significant pain with swallowing significant throat swelling noted on exam, admitted for evaluation, IV steroids and antibiotics. has some right ear pain, also right neck uncomfortable - History Source History Provided By: Patient, Medical Record Limitations to Obtaining History: No Limitations - Alcohol/Substance Use Hx Alcohol Use: No - Smoking History Smoking history: Never smoked Have you smoked in the past 12 months: No Aproximately how many cigarettes per day: 20 Home Medications - Allergies Allergies/Adverse Reactions: Allergies Allergy/AdvReac Type Severity Reaction Status Date / Time ibuprofen [From Motrin] Allergy Severe Swelling Verified 10/14/17 02:30 peanut Allergy Severe Swelling Verified 10/14/17 02:30 - Home Medications Home Medications: Ambulatory Orders Mirtazapine [Remeron -] 45 mg PO HS #30 tablet 08/20/17 Amlodipine Besylate 10 mg PO DAILY #30 tablet 08/22/17 Divalproex [Depakote -] 500 mg PO BID 10/14/17 Doxepin HCl [Sinequan -] 15 mg PO DAILY 10/14/17 Levetiracetam [Keppra] 750 mg PO BID 10/14/17 Family Disease History - Family Disease History Family History: Unable to Obtain Family Disease History: Diabetes: Grandparent, Father (HTN), Mother (HTN; STOPPED ETOH AND DRUGS 19 YRS. AGO), Heart Disease: Mother, Other: Father, Mother Physical Exam-ENT Vital Signs: Vital Signs Temperature 98.1 F 10/14/17 18:00 Pulse Rate 97 H 10/14/17 18:00 Respiratory Rate 20 10/14/17 18:00 Blood Pressure 142/87 10/14/17 18:00 O2 Sat by Pulse Oximetry (%) 99 10/14/17 14:45 Constitutional: Yes: No Distress, Calm Head: Yes: WNL Face: Yes: WNL Eyes: Yes: WNL Nose: Yes: Septum Deviated (to left with narrowed airway, no bleeding or crusting , +mucosal edema left) Nasal Passage: Yes: Other (edematous turbinate left right side clear, no pus or polyp) Oral/Pharynx: Yes: Enlarged Tonsils, Other (oral cavity WNL++right tonsil enlarged and pushed to midline, +moderate erythema anterior pillar, no purulence , soft palate not bulging, +hot potato voice. Flexible laryngoscopy shows edema soft palate, epiglottis pushed posteriorly but not involved, endolarynx WNL, no lesions airway patent, vocal cords mobile symmetric, no stridor or respiratory distress) Outer Ear: Yes: WNL Ear Canal: Yes: WNL Tympanic Membrane: Yes: WNL Neck: Yes: Lymphadenopathy (tender lymph nodes right level 2), Tenderness, Other (No crepitus or subcutaneous emphysema. trachea midline, salivary glands and thyroid glands unremarkable) Respiratory: Yes: WNL Extremities: Yes: WNL Neurological: Yes: Alert Imaging - Results Cat Scan: Report Reviewed, Image Reviewed (significant soft tissue swelling peritonsillar area, soft palate, lateral pharynx. epiglottis pushed posteriorly , endolarynx WNL) Problem List - Problems (1) Sinusitis Assessment/Plan: bilateral maxillary sinusitis noted on CT scan, no specific symptoms recommend: nasal saline spray ordered Code(s): J32.9 - CHRONIC SINUSITIS, UNSPECIFIED Qualifiers: Sinusitis location: maxillary Chronicity: unspecified Qualified Code(s): J32.0 - Chronic maxillary sinusitis (2) Odynophagia Assessment/Plan: pt reports glass in mouth/throat [address] [facility] (records not available) developed worsening painful swallowing and presented to ER today exam and CT scan consistent with right peritonsillar infection with suspected phlegmon, partial airway obstruction at oropharyngeal level, producing hot potato voice, but no stridor, handling secretions well, laryngeal airway normal. possible precipitation from pharyngeal trauma from recent broken glass in throat possible glass foreign body contributory, but no discrete suggestion on CT scan Recommend: treat as infection, continue IV fluids, antibiotics and steroids as ordered diet as tolerated (ordered) hope for clinical improvement and reduced swelling on exam if poorly responsive, consider consultation with diagnostic radiology regarding which imaging modality could image a glass foreign body Thank you for consultation, Brendon Jang MD FACS Code(s): R13.10 - DYSPHAGIA, UNSPECIFIED
[2017-10-14] MEDS: amLODIPine BESYLATE 10 MG TABLET (FP) PO SCH (18:42)
[2017-10-14] MEDS ORDERED: FLU VACCINE QUAD 60 MCG/0.5 ML (MDV 17-18) IM ONE (19:00)
--- NOTE | 2017-10-14 19:14 | PN ---
Teaching Attending Note Name of Resident: Cirilo Brenner ATTENDING PHYSICIAN STATEMENT I saw and evaluated the patient. I reviewed the resident's note and discussed the case with the resident. I agree with the resident's findings and plan as documented with exceptions below. SUBJECTIVE: 32 yom with PMHx of substance abuse (cocaine, crack, K2, PCP, Benzos, Cannabis, EtOH, Nicotine - denies IVDU), reportedly was fed glass in soup 3 weeks ago, was seen at [facility] when had a 'tube down his throat with suctioning of the glass', was discharged on antibiotics. has been having throat pain since, comes here with throat pain and right neck swelling, also reports spitting scant blood since and minimal blood in vomitus yesterday, none since. No fevers, chills, dark or bloody stools, nausea, vomiting or abdominal pain. No dyspnea, new fevers/chills, cough or otherwise concerning symptoms. 12 point ROS done, neg except above. OBJECTIVE: Vital Signs Period Temp Pulse Resp BP Sys/Vázquez Pulse Ox Last 24 Hr 97.3 F-98.3 F 65-97 18-20 110-148/64-89 98-99 Intake & Output 10/11/17 10/12/17 10/13/17 10/14/17 23:59 23:59 23:59 23:59 Intake Total 50 Balance 50 Weight 165 lb 0.009 oz GENERAL: Awake, alert, and fully oriented, in no acute distress. HEAD: Normal with no signs of trauma. EYES: Pupils equal, round and reactive to light, extraocular movements intact, sclera anicteric, conjunctiva clear. No lid lag. EARS, NOSE, THROAT: right tonsillar swelling with uvular deviation to left, no tongue, tenderness with some erythema over right tonsillar area with no discharge NECK: right neck swelling with submandibular lymphadonepathy. LUNGS: Breath sounds equal, clear to auscultation bilaterally. No wheezes, and no crackles. No accessory muscle use. No stridor heard HEART: S1S2 regular. ABDOMEN: Soft, nontender, not distended, normoactive bowel sounds, no guarding, no rebound, no masses. MUSCULOSKELETAL: Normal range of motion at all joints. No bony deformities or tenderness. No CVA tenderness. UPPER EXTREMITIES: 2+ pulses, warm, well-perfused. No cyanosis. No clubbing. No peripheral edema. LOWER EXTREMITIES: 2+ pulses, warm, well-perfused. No calf tenderness. No peripheral edema. NEUROLOGICAL: Cranial nerves II-XII intact. Normal speech. PSYCHIATRIC: Cooperative. Good eye contact. Appropriate mood and affect. SKIN: Warm, dry, normal turgor, no rashes or lesions noted, normal capillary refill. Laboratory Results - last 24 hr 10/14/17 10/14/17 06:30 06:30 WBC 12.7 H D RBC 5.44 Hgb 14.3 Hct 42.4 MCV 77.9 L MCH 26.3 MCHC 33.8 RDW 13.8 Plt Count 436 H D MPV 7.8 Neutrophils % 68.1 Lymphocytes % 13.6 D Monocytes % 12.2 H Eosinophils % 5.3 H D Basophils % 0.8 Sodium 138 Potassium 4.0 Chloride 104 Carbon Dioxide 27 Anion Gap 7 L BUN 7 D Creatinine 0.7 Creat Clearance w eGFR > 60 Random Glucose 99 Calcium 8.7 Total Bilirubin 0.7 D AST 21 ALT 31 D Alkaline Phosphatase 74 D Total Protein 8.[address] neck results reviewed ASSESSMENT AND PLAN: 32 yom with polysubstance abuse, recent reported glass ingestion s/p ?EGD removal here with right tonsillitis with swelling and ?intermittent hemoptysis vs hemetemesis. -Right tonsillits with swelling/uvular deviation and ?early abscess -recent glass ingestion with reported hemoptysis/hemetemesis -polysubstance abuse Plan; ENT evaluation. Decadron/unasyn. Blood cultures. Close respiratory status monitoring. GI consult Dr. Perez. PPI IV BID. Monitor CBC for now Drug screen, monitor for alcohol withdrawal Continue home anti-epileptics and psych meds. DVTPPX with SCDs dispo pending ENT and GI evaluation and clinical improvement. Plan discussed with patient in detail, all questions answered. total admit time spent 65 min.
[2017-10-14] MEDS: ACETAMINOPHEN 325 MG TABLET (FP) PO PRN (21:46)
[2017-10-14] MEDS: THIAMINE HCL 100 MG TABLET (FP) PO SCH (21:46)
[2017-10-14] MEDS: levETIRAcetam 250 MG TABLET (FP) PO SCH (21:46)
[2017-10-14] MEDS: MIRTAZAPINE 15 MG TABLET (FP) PO SCH (21:46)
[2017-10-14] MEDS: DIVALPROEX SODIUM 500 MG TABLET E.C. PO SCH (21:47)
[2017-10-14] MEDS: DOXEPIN HCL 25 MG CAPSULE PO SCH (21:47)
[2017-10-14] MEDS: SODIUM CHLORIDE NASAL SPRAY 44 ML BOTTLE NS SCH (21:47)
[2017-10-14] MEDS: PANTOPRAZOLE SODIUM 40 MG VIAL IVPUSH SCH (21:48)
[2017-10-15] MEDS ORDERED: SODIUM CHLORIDE 100 ML IVPB ONE ×3 (02:30→13:56)
[2017-10-15] MEDS ORDERED: AMPICILLIN NA/SULBACTAM NA 1.5 GM VIAL ONE ×3 (02:30→13:56)
[2017-10-15] MEDS: DEXAMETHASONE SOD PHOSPHATE 4 MG/1 ML VIAL IVPUSH SCH ×3 (02:39→17:22)
[2017-10-15] MEDS: AMPICILLIN NA/SULBACTAM NA 1.5 GM in SODIUM CHLORIDE 100 ML IVPB SCH ×2 (02:39→08:52)
[2017-10-15 04:12] LABS: METHADONE, UR NEGATIVE ng/ml (CUTOFF=300); OPIATES, URI NEGATIVE ng/ml (CUTOFF=300); PHENCYCLIDINE,URINE NEGATIVE ng/ml (CUTOFF=25); URINE AMPHETAMINES NEGATIVE ng/ml (CUTOFF=500); URINE BARBITURATES NEGATIVE ng/ml (CUTOFF=200); URINE BENZODIAZEPINES NEGATIVE ng/ml (CUTOFF=200)
[2017-10-15 04:20] LABS: COCAINE, UR POSITIVE ng/ml (CUTOFF=300)
[2017-10-15] MEDS: SODIUM CHLORIDE 1,000 ML IV SCH ×2 (06:34→18:01)
[2017-10-15] MEDS: levETIRAcetam 250 MG TABLET (FP) PO SCH ×2 (09:02→21:54)
[2017-10-15] MEDS: THIAMINE HCL 100 MG TABLET (FP) PO SCH ×2 (09:02→21:55)
[2017-10-15] MEDS: ACETAMINOPHEN 325 MG TABLET (FP) PO PRN (09:02)
[2017-10-15] MEDS: amLODIPine BESYLATE 10 MG TABLET (FP) PO SCH (09:03)
[2017-10-15] MEDS: SODIUM CHLORIDE NASAL SPRAY 44 ML BOTTLE NS SCH ×2 (09:04→21:55)
[2017-10-15 09:13] LABS: BASO % 0.2 % (0-2.0); HEMATOCRIT 42.3 % (35.4-49); MCH 26.1 pg (25.7-33.7); MCHC 33.2 g/dl (32.0-35.9); MEAN CELL VOLUME 78.7 fl (80-96); MEAN PLT VOLUME 8.5 fl (7.5-11.1); MONO % 2.8 % (3.8-10.2); PLATELET COUNT 507 K/MM3 (134-434); RBC 5.37 M/mm3 (4.00-5.60); RDW 13.6 % (11.9-15.9); WHITE BLOOD COUNT 14.4 K/mm3 (4.0-10.0)
[2017-10-15] MEDS: DIVALPROEX SODIUM 500 MG TABLET E.C. PO SCH ×2 (09:22→21:55)
--- NOTE | 2017-10-15 09:51 | CON.GI ---
Consult Consult Specialty:: GI Reason for Consultation:: dysphagia - History of Present Illness History of Present Illness: chart reviewed. Events noted. As per initial intake: Pt is a 32 y/o M with HTN and extensive history of substance abuse (cocaine, crack, K2, PCP, Benzos, Cannabis, EtOH, Nicotine - denies AUDREY poolely) who presented to the ED with R throat swelling/pain. Pt states that 3 weeks ago he was fed some broken glass in soup. The following day, he developed right sided throat pain. He ignored if several days before going to [facility] where he had a CT neck, which he sates was "fine", and a procedure with a "tube down the throat" in which glass was suctioned out. Pt was sent home with Abx. His symptoms did not resolve for several weeks and so he came to [facility]. Pt states he's been spitting up blood from his mouth intermittently during this time. He had one episode of unwitnessed hematemesis yesterday, which he describes as yellow-brown vomit with spots of blood. He has tried gargling salt water and peroxide without improvement. On the ambulance ride to the hospital, he states his tongue was swollen, and he was given Benadryl by the publisher assistant, which helped. ENT evaluation noted. At the time of the exam, the patient appears comfortable, not in distress, has muffled voice and reports painful swallowing. The patient denies abdominal pain, nausea, vomiting, melena, hematochezia, change in bowel habits, fever, jaundice. Denies recent upper endoscopy for foreign body. Reports no chronic gastrointestinal issues. - History Source History Provided By: Patient, Medical Record, Caregiver - Alcohol/Substance Use Hx Alcohol Use: No - Smoking History Smoking history: Never smoked Have you smoked in the past 12 months: No Aproximately how many cigarettes per day: 20 Home Medications - Allergies Allergies/Adverse Reactions: Allergies Allergy/AdvReac Type Severity Reaction Status Date / Time ibuprofen [From Motrin] Allergy Severe Swelling Verified 10/14/17 02:30 peanut Allergy Severe Swelling Verified 10/14/17 02:30 - Home Medications Home Medications: Ambulatory Orders Mirtazapine [Remeron -] 45 mg PO HS #30 tablet 08/20/17 Amlodipine Besylate 10 mg PO DAILY #30 tablet 08/22/17 Divalproex [Depakote -] 500 mg PO BID 10/14/17 Doxepin HCl [Sinequan -] 15 mg PO DAILY 10/14/17 Levetiracetam [Keppra] 750 mg PO BID 10/14/17 Family Disease History - Family Disease History Family Disease History: Diabetes: Grandparent, Father (HTN), Mother (HTN; STOPPED ETOH AND DRUGS 19 YRS. AGO), Heart Disease: Mother, Other: Father, Mother Review of Systems Findings/Remarks: as per H&P Physical Exam-GI Vital Signs: Vital Signs Temperature 98.2 F 10/15/17 08:56 Pulse Rate 76 10/15/17 08:56 Respiratory Rate 18 10/15/17 08:56 Blood Pressure 133/63 10/15/17 08:56 O2 Sat by Pulse Oximetry (%) 100 10/15/17 06:00 Constitutional: Yes: No Distress, Calm Eyes: Yes: Conjunctiva Clear. No: Sclera Icterus HENT: Yes: Pharyngeal Erythema. No: Drooling Neck: Yes: Tenderness Cardiovascular: No: Bradycardia, Tachycardia Respiratory: Yes: Regular, CTA Bilaterally Gastrointestinal Inspection: No: Distention ...Auscultate: Yes: Normoactive Bowel Sounds ...Palpate: Yes: Soft. No: Firm/Rigid, Guarding, Mass, Tenderness, Tenderness, Epigastium, Tenderness, Rebound Neurological: Yes: Alert, Oriented Labs: CBC, BMP 10/15/17 07:35 Laboratory Last Values WBC 14.4 K/mm3 (4.0-10.0) H 10/15/17 07:35 RBC 5.37 M/mm3 (4.00-5.60) 10/15/17 07:35 Hgb 14.0 GM/dL (11.7-16.9) 10/15/17 07:35 Hct 42.3 % (35.4-49) 10/15/17 07:35 MCV 78.7 fl (80-96) L 10/15/17 07:35 MCH 26.1 pg (25.7-33.7) 10/15/17 07:35 MCHC 33.2 g/dl (32.0-35.9) 10/15/17 07:35 RDW 13.6 % (11.9-15.9) 10/15/17 07:35 Plt Count 507 K/MM3 (134-434) H 10/15/17 07:35 MPV 8.5 fl (7.5-11.1) 10/15/17 07:35 Neutrophils % 90.0 % (42.8-82.8) H D 10/15/17 07:35 Lymphocytes % 7.0 % (8-40) L D 10/15/17 07:35 Monocytes % 2.8 % (3.8-10.2) L 10/15/17 07:35 Eosinophils % 0.0 % (0-4.5) D 10/15/17 07:35 Basophils % 0.2 % (0-2.0) 10/15/17 07:35 Sodium 138 mmol/L (136-145) 10/14/17 06:30 Potassium 4.0 mmol/L (3.5-5.1) 10/14/17 06:30 Chloride 104 mmol/L (98-107) 10/14/17 06:30 Carbon Dioxide 27 mmol/L (21-32) 10/14/17 06:30 Anion Gap 7 (8-16) L 10/14/17 06:30 BUN 7 mg/dL (7-18) D 10/14/17 06:30 Creatinine 0.7 mg/dL (0.7-1.3) 10/14/17 06:30 Creat Clearance w eGFR > 60 (>60) 10/14/17 06:30 Random Glucose 99 mg/dL (74-106) 10/14/17 06:30 Calcium 8.7 mg/dL (8.5-10.1) 10/14/17 06:30 Total Bilirubin 0.7 mg/dL (0.2-1.0) D 10/14/17 06:30 AST 21 U/L (15-37) 10/14/17 06:30 ALT 31 U/L (12-78) D 10/14/17 06:30 Alkaline Phosphatase 74 U/L (45-117) D 10/14/17 06:30 Total Protein 8.0 g/dl (6.4-8.2) D 10/14/17 06:30 Albumin 3.6 g/dl (3.4-5.0) 10/14/17 06:30 Opiates Screen Negative ng/ml (MNRWCO=357) 10/15/17 03:05 Methadone Screen Negative ng/ml (TZJTIY=823) 10/15/17 03:05 Barbiturate Screen Negative ng/ml (GOUMZV=438) 10/15/17 03:05 Phencyclidine Screen Negative ng/ml (CUTOFF=25) 10/15/17 03:05 Ur Amphetamines Screen Negative ng/ml (UHIJGY=238) 10/15/17 03:05 MDMA (Ecstasy) Screen Negative ng/ml (RBGXJC=871) 10/15/17 03:05 Benzodiazepines Screen Negative ng/ml (HVIYXA=990) 10/15/17 03:05 Cocaine Screen Positive ng/ml (AUIQYD=113) 10/15/17 03:05 U Marijuana (THC) Screen Negative ng/ml (CUTOFF=50) 10/15/17 03:05 Imaging - Results Cat Scan: Report Reviewed ( Neck reviewed) Problem List - Problems (1) Oropharyngeal lesion Code(s): J39.2 - OTHER DISEASES OF PHARYNX (2) Oropharyngeal dysphagia Code(s): R13.12 - DYSPHAGIA, OROPHARYNGEAL PHASE Assessment/Plan Oropharyngeal Injury, infection status post oropharyngeal foreign body removal. Care as per ENT/primary team. No acute GI intervention required at this time. Will monitor.
[2017-10-15] MEDS ORDERED: DOXEPIN HCL 10 MG CAPSULE PO SCH (10:00)
[2017-10-15 10:04] LABS: CHLORIDE 106 mmol/L (98-107); SODIUM 138 mmol/L (136-145)
[2017-10-15] MEDS: PANTOPRAZOLE SODIUM 40 MG VIAL IVPUSH SCH ×2 (10:18→21:55)
[2017-10-15 10:23] LABS: ALK PHOS 63 U/L (45-117); ANION GAP 8 (8-16); BILIRUBIN,TOTAL 0.4 mg/dL (0.2-1.0); BLOOD UREA NITROGEN 10 mg/dL (7-18); CALCIUM 8.7 mg/dL (8.5-10.1); CO2 24 mmol/L (21-32); CREATININE 0.7 mg/dL (0.7-1.3); GLUCOSE,RANDOM 128 mg/dL (74-106); SGPT/ALT 25 U/L (12-78); TOT PROT 7.6 g/dl (6.4-8.2)
[2017-10-15 10:34] LABS: POTASSIUM 5.8 mmol/L (3.5-5.1); SGOT/AST 34 U/L (15-37)
--- NOTE | 2017-10-15 12:01 | EKG ---
Test Reason : Blood Pressure : / mmHG Vent. Rate : 071 BPM Atrial Rate : 071 BPM P-R Int : 100 ms QRS Dur : 108 ms QT Int : 372 ms P-R-T Axes : 058 066 062 degrees QTc Int : 404 ms SINUS RHYTHM WITH SHORT SC OTHERWISE NORMAL ECG WHEN COMPARED WITH ECG OF 19-AUG-2017 19:46, NO SIGNIFICANT CHANGE WAS FOUND Confirmed by MODESTO MALDONADO MD ([id number]) on 10/15/2017 12:00:48 PM Referred By: DHEERAJ FOUNTAIN Confirmed By:MODESTO MALDONADO MD
--- NOTE | 2017-10-15 14:00 | CON.ID ---
Consult Consult Specialty:: infectious disease Referred by:: hospitalist service Reason for Consultation:: peritonsillar abscess - History of Present Illness Chief Complaint: neck/throat pain History of Present Illness: 32 year old man admitted with pain with swallowing. about 2 weeks ago he states he has some soup that had broken glass in it he went to the ER and the glass was removed- he was prescribed antibiotics that he didnot fill (no insurance) he has some throat discomfort that markedly worsened 2 days ago and he came to the ED yesterday he was noted to have right peritonsillar swelling ct scan showed right peritonsillar abscess with phlegmon he is on steroids and unasyn no fevers able to eat seen by GI and ENT - History Source History Provided By: Patient, Medical Record Limitations to Obtaining History: Poor Historian - Past Medical History MAINTENANCE MGR: Yes: Seizure Cardio/Vascular: Yes: HTN Additional Medical History: substance use-denies IVDU - Past Surgical History Past Surgical History: Yes: None - Alcohol/Substance Use Hx Alcohol Use: No History of Substance Use: reports: Cocaine, Marijuana - Smoking History Smoking history: Current every day smoker Have you smoked in the past 12 months: Yes Aproximately how many cigarettes per day: 20 - Social History Usual Living Arrangement: Other (homeless) ADL: Independent History of Recent Travel: No Home Medications - Allergies Allergies/Adverse Reactions: Allergies Allergy/AdvReac Type Severity Reaction Status Date / Time ibuprofen [From Motrin] Allergy Severe Swelling Verified 10/14/17 02:30 peanut Allergy Severe Swelling Verified 10/14/17 02:30 - Home Medications Home Medications: Ambulatory Orders Mirtazapine [Remeron -] 45 mg PO HS #30 tablet 08/20/17 Amlodipine Besylate 10 mg PO DAILY #30 tablet 08/22/17 Divalproex [Depakote -] 500 mg PO BID 10/14/17 Doxepin HCl [Sinequan -] 15 mg PO DAILY 10/14/17 Levetiracetam [Keppra] 750 mg PO BID 10/14/17 Family Disease History - Family Disease History Family Disease History: Diabetes: Grandparent, Father (HTN), Mother (HTN; STOPPED ETOH AND DRUGS 19 YRS. AGO), Heart Disease: Mother, Other: Father, Mother Review of Systems - Review of Systems Constitutional: reports: No Symptoms Eyes: reports: No Symptoms HENT: reports: Difficult Swallowing Neck: reports: No Symptoms Cardiovascular: reports: No Symptoms Respiratory: reports: No Symptoms Gastrointestinal: reports: No Symptoms Genitourinary: reports: No Symptoms Breasts: reports: No Symptoms Reported Musculoskeletal: reports: No Symptoms Integumentary: reports: No Symptoms Neurological: reports: No Symptoms Endocrine: reports: No Symptoms Physical Exam Vital Signs: Vital Signs Temperature 98.6 F 10/15/17 13:34 Pulse Rate 117 H 10/15/17 13:34 Respiratory Rate 18 10/15/17 13:34 Blood Pressure 138/84 10/15/17 13:34 O2 Sat by Pulse Oximetry (%) 100 10/15/17 06:00 Constitutional: Yes: Well Nourished, No Distress, Calm Eyes: Yes: Conjunctiva Clear HENT: Yes: Atraumatic, Normocephalic, Pharyngeal Erythema (right tonsillar swelling), Other (nno trismus, easily able to open his mouth good dentition). No: Thrush, Tonsillar Exudate Neck: Yes: Supple, Trachea Midline Cardiovascular: Yes: Regular Rate and Rhythm Respiratory: Yes: Regular, CTA Bilaterally Gastrointestinal: Yes: Normal Bowel Sounds, Soft. No: Tenderness, Epigastrium ...Rectal Exam: Yes: Deferred Extremities: Yes: WNL Edema: No Psychiatric: Yes: Alert, Oriented Labs: CBC, BMP 10/15/17 07:35 10/15/17 11:00 Imaging - Results Cat Scan: Report Reviewed Problem List - Problems (1) Peritonsillar abscess Code(s): J36 - PERITONSILLAR ABSCESS (2) Polysubstance (excluding opioids) dependence Code(s): F19.20 - OTHER PSYCHOACTIVE SUBSTANCE DEPENDENCE, UNCOMPLICATED (3) Seizure Code(s): R56.9 - UNSPECIFIED CONVULSIONS Assessment/Plan would switch to clindamycin to broaden coverage to include MRSA, group a strep and mouth anerobes f/u ENT
[2017-10-15] MEDS: CLINDAMYCIN 600MG PREMIX IVPB 600 MG/50 ML BAG IVPB SCH ×2 (14:28→18:00)
--- NOTE | 2017-10-15 14:56 | PN ---
Teaching Attending Note Name of Resident: Cirilo Brenner ATTENDING PHYSICIAN STATEMENT I saw and evaluated the patient. I reviewed the resident's note and discussed the case with the resident. I agree with the resident's findings and plan as documented with exceptions below. SUBJECTIVE: patient seen and examined, mouth pain improved, tolerating diet well, no other complaints. OBJECTIVE: Vital Signs Period Temp Pulse Resp BP Sys/Vázquez Pulse Ox Last 24 Hr 97.4 F-98.6 F 62-117 18-20 118-142/55-87 100-100 Intake & Output 10/12/17 10/13/17 10/14/17 10/15/17 23:59 23:59 23:59 23:59 Intake Total 1050 Output Total 900 Balance 1050 -900 Weight 165 lb 0.009 oz General: lying in bed in no acute distress HEENT: right tonsillar enlargement/erythema with some improvement, no discharge or lesions noted, uvular deviation to the left Neck: submandibular lymphadenopathy, non tender Home Medication List Medication Instructions Recorded Confirmed Type Divalproex [Depakote -] 500 mg PO BID 10/14/17 10/14/17 History Doxepin HCl [Sinequan -] 15 mg PO DAILY 10/14/17 10/14/17 History Levetiracetam [Keppra] 750 mg PO BID 10/14/17 10/14/17 History Active Medications Generic Name Dose Route Start Last Admin Trade Name Freq PRN Reason Stop Dose Admin Acetaminophen 325 mg 10/14/17 18:48 10/15/17 09:02 Tylenol - PO 325 mg Q6H PRN Administration PAIN LEVEL 6-10 Amlodipine Besylate 10 mg 10/14/17 18:30 10/15/17 09:03 Norvasc - PO 10 mg DAILY JEFFREY Administration Dexamethasone Sodium Phosphate 10 mg 10/14/17 18:00 10/15/17 10:10 Decadron Injection - IVPUSH 10 mg Q8H-IV JEFFREY Administration Divalproex Sodium 500 mg 10/14/17 22:00 10/15/17 09:22 Depakote - PO 500 mg BID JEFFREY Administration Doxepin HCl 25 mg 10/14/17 22:00 10/14/17 21:47 Sinequan - PO 25 mg HS JEFFREY Administration Sodium Chloride 1,000 mls @ 100 mls/hr 10/14/17 18:00 10/15/17 06:34 Normal Saline - IV 100 mls/hr ASDIR JEFFREY Administration Clindamycin Phosphate 600 mg in 50 mls @ 100 mls/hr 10/15/17 14:15 10/15/17 14:28 Cleocin 600 Mg Premix Ivpb - IVPB 100 mls/hr Q8H-IV JEFFREY Administration Protocol Levetiracetam 750 mg 10/14/17 22:00 10/15/17 09:02 Keppra - PO 750 mg BID JEFFREY Administration Mirtazapine 45 mg 10/14/17 22:00 10/14/17 21:46 Remeron - PO 45 mg HS JEFFREY Administration Pantoprazole Sodium 40 mg 10/14/17 22:00 10/15/17 10:18 Protonix Iv IVPUSH 40 mg BID JEFFREY Administration Sodium Chloride 2 spray 10/14/17 22:00 10/15/17 09:04 Wilbarger [place] Nasal [place] - NS 2 spray BID JEFFREY Administration Thiamine HCl 100 mg 10/14/17 22:00 10/15/17 09:02 Vitamin B1 - PO 100 mg BID JEFFREY Administration Laboratory Results - last 24 hr 10/15/17 10/15/17 10/15/17 03:05 07:35 07:35 WBC 14.4 H RBC 5.37 Hgb 14.0 Hct 42.3 MCV 78.7 L MCH 26.1 MCHC 33.2 RDW 13.6 Plt Count 507 H MPV 8.5 Neutrophils % 90.0 H D Lymphocytes % 7.0 L D Monocytes % 2.8 L Eosinophils % 0.0 D Basophils % 0.2 Sodium Potassium Chloride Carbon Dioxide Anion Gap BUN Creatinine Creat Clearance w eGFR Random Glucose Calcium Total Bilirubin AST ALT Alkaline Phosphatase Creatine Kinase Total Protein Albumin Opiates Screen Negative Methadone Screen Negative Barbiturate Screen Negative Valproic Acid 31.437 L Phencyclidine Screen Negative Ur Amphetamines Screen Negative MDMA (Ecstasy) Screen Negative Benzodiazepines Screen Negative Cocaine Screen Positive U Marijuana (THC) Screen Negative 10/15/17 10/15/17 10/15/17 07:35 11:00 11:00 WBC RBC Hgb Hct MCV MCH MCHC RDW Plt Count MPV Neutrophils % Lymphocytes % Monocytes % Eosinophils % Basophils % Sodium 138 Potassium 5.8 H D 4.8 Chloride 106 Carbon Dioxide 24 Anion Gap 8 BUN 10 D Creatinine 0.7 Creat Clearance w eGFR > 60 Random Glucose 128 H D Calcium 8.7 Total Bilirubin 0.4 D AST 34 D ALT 25 Alkaline Phosphatase 63 Creatine Kinase 106 Total Protein 7.6 Albumin 3.0 L Opiates Screen Methadone Screen Barbiturate Screen Valproic Acid Phencyclidine Screen Ur Amphetamines Screen MDMA (Ecstasy) Screen Benzodiazepines Screen Cocaine Screen U Marijuana (THC) Screen ASSESSMENT AND PLAN: 32 yom with polysubstance abuse, recent reported glass ingestion s/p ?EGD removal here with right tonsillitis with swelling and ?intermittent hemoptysis vs hemetemesis. -Right tonsillits with swelling/uvular deviation and ?early abscess -recent glass ingestion with reported hemoptysis/hemetemesis -polysubstance abuse Plan; ENT evaluation noted. Monitor for now. Symptoms with some improvement, no stridor. ABle to eat. ID consulted, changed to clindamycin day 1, follow up blood cultures. Continue to monitor and re-image if new concerns and follow up with ENT if needs drainage at later point. Decadron for now. Worsening WBC could steroid induced given clinically improved, trend for now. GI input noted. PPI IV BID. ENT evaluation. Decadron/unasyn. Blood cultures. Close respiratory status monitoring. Repeat K normal. Monitor. Drug screen, monitor for alcohol withdrawal Continue home anti-epileptics and psych meds. DVTPPX with SCDs dispo pending clinical improvement. Plan discussed with patient in detail, all questions answered.
--- NOTE | 2017-10-15 18:30 | PN ---
Physical Exam: SUBJECTIVE: Patient seen and examined at bedside. Continues to complain of throat pain. No other complaints. OBJECTIVE: Vital Signs Period Temp Pulse Resp BP Sys/Vázquez Pulse Ox Last 24 Hr 97.4 F-98.6 F 62-117 18-19 118-138/55-84 100-100 GENERAL: Awake, alert, and fully oriented, in no acute distress. Anxious but intermittently suddenly drowsy. HEAD: Normal with no signs of trauma. EYES: extraocular movements intact, sclera anicteric, conjunctiva clear. No lid lag. EARS, NOSE, THROAT: R pharynx swelling with uvula deviation. Slightly improved since yesterday. Moist mucous membranes. NECK: R tender lymphadenopathy, JVD, or masses. LUNGS: Breath sounds equal, clear to auscultation bilaterally. No wheezes, and no crackles. No accessory muscle use. HEART: Regular rate and rhythm, normal S1 and S2 without murmur, rub or gallop. ABDOMEN: Soft, nontender, not distended, normoactive bowel sounds, no guarding, no rebound, no masses. No hepatomegaly or splenomegaly. MUSCULOSKELETAL: Normal range of motion at all joints. No bony deformities or tenderness. No CVA tenderness. UPPER EXTREMITIES: 2+ pulses, warm, well-perfused. No cyanosis. No clubbing. No peripheral edema. LOWER EXTREMITIES: 2+ pulses, warm, well-perfused. No calf tenderness. No peripheral edema. NEUROLOGICAL: Cranial nerves II-XII intact. Normal speech. Normal gait. PSYCHIATRIC: Cooperative. Good eye contact. Appropriate mood and affect. SKIN: Warm, dry, normal turgor, no rashes or lesions noted, normal capillary refill. Laboratory Results - last 24 hr 10/15/17 10/15/17 10/15/17 03:05 07:35 07:35 WBC 14.4 H RBC 5.37 Hgb 14.0 Hct 42.3 MCV 78.7 L MCH 26.1 MCHC 33.2 RDW 13.6 Plt Count 507 H MPV 8.5 Neutrophils % 90.0 H D Lymphocytes % 7.0 L D Monocytes % 2.8 L Eosinophils % 0.0 D Basophils % 0.2 Sodium Potassium Chloride Carbon Dioxide Anion Gap BUN Creatinine Creat Clearance w eGFR Random Glucose Calcium Total Bilirubin AST ALT Alkaline Phosphatase Creatine Kinase Total Protein Albumin Opiates Screen Negative Methadone Screen Negative Barbiturate Screen Negative Valproic Acid 31.437 L Phencyclidine Screen Negative Ur Amphetamines Screen Negative MDMA (Ecstasy) Screen Negative Benzodiazepines Screen Negative Cocaine Screen Positive U Marijuana (THC) Screen Negative 10/15/17 10/15/17 10/15/17 07:35 11:00 11:00 WBC RBC Hgb Hct MCV MCH MCHC RDW Plt Count MPV Neutrophils % Lymphocytes % Monocytes % Eosinophils % Basophils % Sodium 138 Potassium 5.8 H D 4.8 Chloride 106 Carbon Dioxide 24 Anion Gap 8 BUN 10 D Creatinine 0.7 Creat Clearance w eGFR > 60 Random Glucose 128 H D Calcium 8.7 Total Bilirubin 0.4 D AST 34 D ALT 25 Alkaline Phosphatase 63 Creatine Kinase 106 Total Protein 7.6 Albumin 3.0 L Opiates Screen Methadone Screen Barbiturate Screen Valproic Acid Phencyclidine Screen Ur Amphetamines Screen MDMA (Ecstasy) Screen Benzodiazepines Screen Cocaine Screen U Marijuana (THC) Screen Active Medications Generic Name Dose Route Start Last Admin Trade Name Freq PRN Reason Stop Dose Admin Acetaminophen 325 mg 10/14/17 18:48 10/15/17 09:02 Tylenol - PO 325 mg Q6H PRN Administration PAIN LEVEL 6-10 Amlodipine Besylate 10 mg 10/14/17 18:30 10/15/17 09:03 Norvasc - PO 10 mg DAILY JEFFREY Administration Dexamethasone Sodium Phosphate 10 mg 10/14/17 18:00 10/15/17 17:22 Decadron Injection - IVPUSH 10 mg Q8H-IV JEFFREY Administration Divalproex Sodium 500 mg 10/14/17 22:00 10/15/17 09:22 Depakote - PO 500 mg BID JEFFREY Administration Doxepin HCl 25 mg 10/14/17 22:00 10/14/17 21:47 Sinequan - PO 25 mg HS JEFFREY Administration Sodium Chloride 1,000 mls @ 100 mls/hr 10/14/17 18:00 10/15/17 18:01 Normal Saline - IV 100 mls/hr ASDIR JEFFREY Administration Clindamycin Phosphate 600 mg in 50 mls @ 100 mls/hr 10/15/17 14:15 10/15/17 18:00 Cleocin 600 Mg Premix Ivpb - IVPB 100 mls/hr Q8H-IV JEFFREY Administration Protocol Levetiracetam 750 mg 10/14/17 22:00 10/15/17 09:02 Keppra - PO 750 mg BID JEFFREY Administration Mirtazapine 45 mg 10/14/17 22:00 10/14/17 21:46 Remeron - PO 45 mg HS JEFFREY Administration Pantoprazole Sodium 40 mg 10/14/17 22:00 10/15/17 10:18 Protonix Iv IVPUSH 40 mg BID JEFFREY Administration Sodium Chloride 2 spray 10/14/17 22:00 10/15/17 09:04 [place] Nasal [place] - NS 2 spray BID JEFFREY Administration Thiamine HCl 100 mg 10/14/17 22:00 10/15/17 09:02 Vitamin B1 - PO 100 mg BID JEFFREY Administration ASSESSMENT/PLAN: Pt is a 32 y/o M with PMH HTN and polysubstance abuse who presented to ED with 3 weeks throat pain and swelling. Pt admitted for evaluation and workup of peritonsillar abscess. #Peritonsilar abscess -Pt went to [facility] and had some imaging and procedure done. Unclear from history. Will need to collect records from [facility]. -Pt got 10 Decadron in ED -CT showed peritonsilar abscess -Decadron -GI consult: Dr. Perez recommends no GI intervention -ENT consult: Dr. Jang performed bedside laryngoscopy. Does not feel airway is threatened at this time. -ID consult: Dr. Fox Recommend changing Abx to Clinda for coverage of mouth yahir -Protonix BID -Soft diet -Tylenol #Polysubstance abuse -Recently used cocaine and etoh -Pt not actively withdrawing. VSS -Monitor closely. -Thiamine #HTN -continue home meds -Norvasc -Note: In light of pt's substance abuse and recent cocaine, do NOT give beta blockers for HTN at this time #Seizure disorder -Cont home meds -Depakote -Depakote level pending -Keppra -Keppra level 31. Unclear if pt is compliant #Anxiety/Depression -continue home meds -Remeron -Doxipine #FEN -NS @ 100 -lytes wnl -soft diet #PPx -SCDs -Protonix #Dispo -Admitted for peritonsilar abscess Cirilo Brenner MD PGY-1 IM Visit type - Emergency Visit Emergency Visit: No - New Patient This patient is new to me today: No - Critical Care Critical Care patient: No
[2017-10-15] MEDS ORDERED: PT OWN MED DRAWER 7, Y5N ONE (21:47)
[2017-10-15] MEDS: MIRTAZAPINE 15 MG TABLET (FP) PO SCH (21:55)
[2017-10-15] MEDS: DOXEPIN HCL 25 MG CAPSULE PO SCH (21:55)
[2017-10-16] MEDS: DEXAMETHASONE SOD PHOSPHATE 4 MG/1 ML VIAL IVPUSH SCH (01:05)
[2017-10-16] MEDS: CLINDAMYCIN 600MG PREMIX IVPB 600 MG/50 ML BAG IVPB SCH ×3 (01:05→18:05)
[2017-10-16 07:38] LABS: BASO % 0.2 % (0-2.0); HEMATOCRIT 40.8 % (35.4-49); HEMOGLOBIN 13.7 GM/dL (11.7-16.9); LYMPH % 5.3 % (8-40); MCH 26.3 pg (25.7-33.7); MCHC 33.5 g/dl (32.0-35.9); MEAN CELL VOLUME 78.6 fl (80-96); MEAN PLT VOLUME 8.5 fl (7.5-11.1); MONO % 3.3 % (3.8-10.2); NEUT % 91.2 % (42.8-82.8); PLATELET COUNT 565 K/MM3 (134-434); RDW 13.6 % (11.9-15.9); WHITE BLOOD COUNT 19.4 K/mm3 (4.0-10.0)
[2017-10-16 07:48] LABS: ALBUMIN 2.9 g/dl (3.4-5.0); ALK PHOS 74 U/L (45-117); ANION GAP 7 (8-16); BILIRUBIN,TOTAL 0.2 mg/dL (0.2-1.0); BLOOD UREA NITROGEN 15 mg/dL (7-18); CALCIUM 8.6 mg/dL (8.5-10.1); CHLORIDE 106 mmol/L (98-107); CO2 27 mmol/L (21-32); CREATININE 0.7 mg/dL (0.7-1.3); GLUCOSE,RANDOM 141 mg/dL (74-106); POTASSIUM 4.9 mmol/L (3.5-5.1); SGOT/AST 8 U/L (15-37); SGPT/ALT 21 U/L (12-78); SODIUM 140 mmol/L (136-145); TOT PROT 7.3 g/dl (6.4-8.2)
[2017-10-16] MEDS ORDERED: DEXAMETHASONE SOD PHOSPHATE 4 MG/1 ML VIAL IVPUSH SCH ×2 (08:03→10:00)
--- NOTE | 2017-10-16 08:10 | PN ---
Teaching Attending Note Name of Resident: Cirilo Brenner ATTENDING PHYSICIAN STATEMENT I saw and evaluated the patient. I reviewed the resident's note and discussed the case with the resident. I agree with the resident's findings and plan as documented with exceptions below. SUBJECTIVE: Patient seen and examined. improved, tolerating diet well, no new dsypnea or breathing concerns. OBJECTIVE: Vital Signs Period Temp Pulse Resp BP Sys/Vázquez Pulse Ox Last 24 Hr 97.7 F-98.6 F 66-117 18-20 118-138/51-84 99-99 Intake & Output 10/13/17 10/14/17 10/15/17 10/16/17 23:59 23:59 23:59 23:59 Intake Total 1050 1800 Output Total 900 Balance 1050 900 Weight 165 lb 0.009 oz General: lying in bed in no acute distress HEENT: improved right tonsillar swelling with improved uvular deviation, no new discharge or erythema noted, unchanged submandibular lymphadenopathy Home Medication List Medication Instructions Recorded Confirmed Type Divalproex [Depakote -] 500 mg PO BID 10/14/17 10/14/17 History Doxepin HCl [Sinequan -] 15 mg PO DAILY 10/14/17 10/14/17 History Levetiracetam [Keppra] 750 mg PO BID 10/14/17 10/14/17 History Active Medications Generic Name Dose Route Start Last Admin Trade Name Freq PRN Reason Stop Dose Admin Acetaminophen 325 mg 10/14/17 18:48 10/15/17 09:02 Tylenol - PO 325 mg Q6H PRN Administration PAIN LEVEL 6-10 Amlodipine Besylate 10 mg 10/14/17 18:30 10/15/17 09:03 Norvasc - PO 10 mg DAILY JEFFREY Administration Dexamethasone Sodium Phosphate 5 mg 10/16/17 08:03 Decadron Injection - IVPUSH Q8H-IV JEFFREY Divalproex Sodium 500 mg 10/14/17 22:00 10/15/17 21:55 Depakote - PO 500 mg BID JEFFREY Administration Doxepin HCl 25 mg 10/14/17 22:00 10/15/17 21:55 Sinequan - PO 25 mg HS JEFFREY Administration Sodium Chloride 1,000 mls @ 100 mls/hr 10/14/17 18:00 10/15/17 18:01 Normal Saline - IV 100 mls/hr ASDIR JEFFREY Administration Clindamycin Phosphate 600 mg in 50 mls @ 100 mls/hr 10/15/17 14:15 10/16/17 01:05 Cleocin 600 Mg Premix Ivpb - IVPB 100 mls/hr Q8H-IV JEFFREY Administration Protocol Levetiracetam 750 mg 10/14/17 22:00 10/15/17 21:54 Keppra - PO 750 mg BID JEFFREY Administration Mirtazapine 45 mg 10/14/17 22:00 10/15/17 21:55 Remeron - PO 45 mg HS JEFFREY Administration Pantoprazole Sodium 40 mg 10/14/17 22:00 10/15/17 21:55 Protonix Iv IVPUSH 40 mg BID JEFFREY Administration Sodium Chloride 2 spray 10/14/17 22:00 10/15/17 21:55 [place] Nasal [place] - NS 2 spray BID JEFFREY Administration Thiamine HCl 100 mg 10/14/17 22:00 10/15/17 21:55 Vitamin B1 - PO 100 mg BID JEFFREY Administration Laboratory Results - last 24 hr 10/15/17 10/15/17 10/15/17 07:35 11:00 11:00 WBC RBC Hgb Hct MCV MCH MCHC RDW Plt Count MPV Neutrophils % Lymphocytes % Monocytes % Eosinophils % Basophils % Sodium Potassium 4.8 Chloride Carbon Dioxide Anion Gap BUN Creatinine Creat Clearance w eGFR Random Glucose Calcium Total Bilirubin AST ALT Alkaline Phosphatase Creatine Kinase 106 Total Protein Albumin Valproic Acid 31.437 L 10/16/17 10/16/17 07:10 07:10 WBC 19.4 H D RBC 5.20 Hgb 13.7 Hct 40.8 MCV 78.6 L MCH 26.3 MCHC 33.5 RDW 13.6 Plt Count 565 H MPV 8.5 Neutrophils % 91.2 H Lymphocytes % 5.3 L D Monocytes % 3.3 L Eosinophils % 0.0 Basophils % 0.2 Sodium 140 Potassium 4.9 Chloride 106 Carbon Dioxide 27 Anion Gap 7 L BUN 15 D Creatinine 0.7 Creat Clearance w eGFR > 60 Random Glucose 141 H Calcium 8.6 Total Bilirubin 0.2 D AST 8 L D ALT 21 Alkaline Phosphatase 74 Creatine Kinase Total Protein 7.3 Albumin 2.9 L Valproic Acid Microbiology 10/14/17 22:00 Blood - Peripheral Venous Blood Culture - Preliminary NO GROWTH OBTAINED AFTER 24 HOURS, INCUBATION TO CONTINUE FOR 4 DAYS. 10/14/17 21:00 Blood - Peripheral Venous Blood Culture - Preliminary NO GROWTH OBTAINED AFTER 24 HOURS, INCUBATION TO CONTINUE FOR 4 DAYS. ASSESSMENT AND PLAN: 32 yom with polysubstance abuse, recent reported glass ingestion s/p ?EGD removal here with right tonsillitis with swelling and ?intermittent hemoptysis vs hemetemesis. -Right tonsillits with swelling/uvular deviation and ?early abscess -Leucocytosis, ?steroid induced demargination -recent glass ingestion with reported hemoptysis/hemetemesis -polysubstance abuse Plan; Continues to improve, no respiratory or swallowing concerns. d/c decadron and monitor for now. Clindamycin day 3. FOllow up with ENT/ID for dispo planning in 24 hours. Worsening WBC could steroid induced given clinically improved, clinically improved, trend for now GI input noted. Continue protonix 40 mg dialy. Retrieve prior records from [facility]. Drug screen noted, monitor for alcohol withdrawal COntinue thiamine. Nutrition input noted, add Ensure. Continue home anti-epileptics and psych meds. DVTPPX with SCDs dispo home in 24 hours if continues to improve Plan discussed with patient in detail, all questions answered.
[2017-10-16] MEDS ORDERED: PT OWN MED DRAWER 7, Y5N ONE (09:53)
[2017-10-16] MEDS: levETIRAcetam 250 MG TABLET (FP) PO SCH ×2 (09:58→22:04)
[2017-10-16] MEDS: PANTOPRAZOLE 40 MG TABLET (FP) PO SCH (09:58)
[2017-10-16] MEDS: THIAMINE HCL 100 MG TABLET (FP) PO SCH (09:58)
[2017-10-16] MEDS: amLODIPine BESYLATE 10 MG TABLET (FP) PO SCH (09:58)
[2017-10-16] MEDS: DIVALPROEX SODIUM 500 MG TABLET E.C. PO SCH ×2 (09:59→22:04)
[2017-10-16] MEDS: SODIUM CHLORIDE NASAL SPRAY 44 ML BOTTLE NS SCH ×2 (10:00→22:05)
[2017-10-16] MEDS: SODIUM CHLORIDE 1,000 ML IV SCH ×2 (10:23→22:03)
--- NOTE | 2017-10-16 11:38 | PN ---
Physical Exam: SUBJECTIVE: Patient seen and examined at bedside. Throat pain is improving. No other complaints. OBJECTIVE: Vital Signs Period Temp Pulse Resp BP Sys/Vázquez Pulse Ox Last 24 Hr 97.7 F-98.6 F 66-117 18-20 118-138/51-84 99 GENERAL: Awake, alert, and fully oriented, in no acute distress. Anxious but intermittently suddenly drowsy. HEAD: Normal with no signs of trauma. EYES: extraocular movements intact, sclera anicteric, conjunctiva clear. No lid lag. EARS, NOSE, THROAT: R pharynx swelling with uvula deviation. Notably improved since yesterday. Moist mucous membranes. NECK: R tender lymphadenopathy, JVD, or masses. LUNGS: Breath sounds equal, clear to auscultation bilaterally. No wheezes, and no crackles. No accessory muscle use. HEART: Regular rate and rhythm, normal S1 and S2 without murmur, rub or gallop. ABDOMEN: Soft, nontender, not distended, normoactive bowel sounds, no guarding, no rebound, no masses. No hepatomegaly or splenomegaly. MUSCULOSKELETAL: Normal range of motion at all joints. No bony deformities or tenderness. No CVA tenderness. UPPER EXTREMITIES: 2+ pulses, warm, well-perfused. No cyanosis. No clubbing. No peripheral edema. LOWER EXTREMITIES: 2+ pulses, warm, well-perfused. No calf tenderness. No peripheral edema. NEUROLOGICAL: Cranial nerves II-XII intact. Normal speech. Normal gait. PSYCHIATRIC: Cooperative. Good eye contact. Appropriate mood and affect. SKIN: Warm, dry, normal turgor, no rashes or lesions noted, normal capillary refill. Laboratory Results - last 24 hr 10/15/17 10/15/17 10/15/17 07:35 11:00 11:00 WBC RBC Hgb Hct MCV MCH MCHC RDW Plt Count MPV Neutrophils % Lymphocytes % Monocytes % Eosinophils % Basophils % Sodium Potassium 4.8 Chloride Carbon Dioxide Anion Gap BUN Creatinine Creat Clearance w eGFR Random Glucose Calcium Total Bilirubin AST ALT Alkaline Phosphatase Creatine Kinase 106 Total Protein Albumin Valproic Acid 31.437 L 10/16/17 10/16/17 07:10 07:10 WBC 19.4 H D RBC 5.20 Hgb 13.7 Hct 40.8 MCV 78.6 L MCH 26.3 MCHC 33.5 RDW 13.6 Plt Count 565 H MPV 8.5 Neutrophils % 91.2 H Lymphocytes % 5.3 L D Monocytes % 3.3 L Eosinophils % 0.0 Basophils % 0.2 Sodium 140 Potassium 4.9 Chloride 106 Carbon Dioxide 27 Anion Gap 7 L BUN 15 D Creatinine 0.7 Creat Clearance w eGFR > 60 Random Glucose 141 H Calcium 8.6 Total Bilirubin 0.2 D AST 8 L D ALT 21 Alkaline Phosphatase 74 Creatine Kinase Total Protein 7.3 Albumin 2.9 L Valproic Acid Active Medications Generic Name Dose Route Start Last Admin Trade Name Freq PRN Reason Stop Dose Admin Acetaminophen 325 mg 10/14/17 18:48 10/15/17 09:02 Tylenol - PO 325 mg Q6H PRN Administration PAIN LEVEL 6-10 Amlodipine Besylate 10 mg 10/14/17 18:30 10/16/17 09:58 Norvasc - PO 10 mg DAILY JEFFREY Administration Divalproex Sodium 500 mg 10/14/17 22:00 10/16/17 09:59 Depakote - PO 500 mg BID JEFFREY Administration Doxepin HCl 25 mg 10/14/17 22:00 10/15/17 21:55 Sinequan - PO 25 mg HS JEFFREY Administration Sodium Chloride 1,000 mls @ 100 mls/hr 10/14/17 18:00 10/16/17 10:23 Normal Saline - IV 100 mls/hr ASDIR JEFFREY Administration Clindamycin Phosphate 600 mg in 50 mls @ 100 mls/hr 10/15/17 14:15 10/16/17 10:06 Cleocin 600 Mg Premix Ivpb - IVPB 100 mls/hr Q8H-IV JEFFREY Administration Protocol Levetiracetam 750 mg 10/14/17 22:00 10/16/17 09:58 Keppra - PO 750 mg BID JEFFREY Administration Mirtazapine 45 mg 10/14/17 22:00 10/15/17 21:55 Remeron - PO 45 mg HS JEFFREY Administration Pantoprazole Sodium 40 mg 10/16/17 10:00 10/16/17 09:58 Protonix - PO 40 mg DAILY JEFFREY Administration Sodium Chloride 2 spray 10/14/17 22:00 10/15/17 21:55 [place] Nasal [place] - NS 2 spray BID JEFFREY Administration Thiamine HCl 100 mg 10/14/17 22:00 10/16/17 09:58 Vitamin B1 - PO 100 mg BID JEFFREY Administration ASSESSMENT/PLAN: Pt is a 32 y/o M with PMH HTN and polysubstance abuse who presented to ED with 3 weeks throat pain and swelling. Pt admitted for evaluation and workup of peritonsillar abscess. Note: Records recovered from [facility]. Pt had a CT neg which showed epiglotitis and no foreign bodies. He was discharged on Cipro. History was also notable for Hep C. #Peritonsilar abscess: IMPROVING -Pt went to [facility] and had some imaging and procedure done. Unclear from history. Will need to collect records from [facility]. -Pt got 10 Decadron in ED -CT showed peritonsilar abscess -D/C Decadron -GI consult: Dr. Perez -ENT consult: Dr. Jang -ID consult: Dr. Fox -Protonix BID -Clindamycin day 3 -Soft diet -Tylenol #Polysubstance abuse -Recently used cocaine and etoh -Pt not actively withdrawing. VSS -Monitor closely -Thiamine #HTN -continue home meds -Norvasc -Note: In light of pt's substance abuse and recent cocaine, do NOT give beta blockers for HTN at this time #Seizure disorder -Cont home meds -Depakote -Depakote level pending -Keppra -Keppra level 31. Unclear if pt is compliant #Anxiety/Depression -continue home meds -Remeron -Doxipine #FEN -NS @ 100 -lytes wnl -soft diet + ensure #PPx -SCDs -Protonix #Dispo -Admitted for peritonsilar abscess -possible D/C tomorrow if clinically improved Cirilo Brenner MD PGY-1 IM Visit type - Emergency Visit Emergency Visit: No - New Patient This patient is new to me today: No - Critical Care Critical Care patient: No
--- NOTE | 2017-10-16 15:23 | PN ---
Progress Note, Physician History of Present Illness: No events. Comfortable. Tolerating current diet. - Current Medication List Current Medications: Active Medications Acetaminophen (Tylenol -) 325 mg PO Q6H PRN PRN Reason: PAIN LEVEL 6-10 Last Admin: 10/15/17 09:02 Dose: 325 mg Amlodipine Besylate (Norvasc -) 10 mg PO DAILY [facility] Last Admin: 10/16/17 09:58 Dose: 10 mg Divalproex Sodium (Depakote -) 500 mg PO BID [facility] Last Admin: 10/16/17 09:59 Dose: 500 mg Doxepin HCl (Sinequan -) 25 mg PO HS [facility] Last Admin: 10/15/17 21:55 Dose: 25 mg Sodium Chloride (Normal Saline -) 1,000 mls @ 100 mls/hr IV ASDIR [facility] Last Admin: 10/16/17 10:23 Dose: 100 mls/hr Clindamycin Phosphate (Cleocin 600 Mg Premix Ivpb -) 600 mg in 50 mls @ 100 mls /hr IVPB Q8H-IV JEFFREY PRN Reason: Protocol Last Admin: 10/16/17 10:06 Dose: 100 mls/hr Levetiracetam (Keppra -) 750 mg PO BID [facility] Last Admin: 10/16/17 09:58 Dose: 750 mg Mirtazapine (Remeron -) 45 mg PO HS [facility] Last Admin: 10/15/17 21:55 Dose: 45 mg Pantoprazole Sodium (Protonix -) 40 mg PO DAILY [facility] Last Admin: 10/16/17 09:58 Dose: 40 mg Sodium Chloride ([place] Nasal [place] -) 2 spray NS BID [facility] Last Admin: 10/15/17 21:55 Dose: 2 spray Thiamine HCl (Vitamin B1 -) 100 mg PO DAILY [facility] - Objective Vital Signs: Vital Signs Temperature 98.5 F 10/16/17 13:58 Pulse Rate 86 10/16/17 13:58 Respiratory Rate 18 10/16/17 13:58 Blood Pressure 132/61 10/16/17 13:58 O2 Sat by Pulse Oximetry (%) 99 10/15/17 21:00 Labs: CBC, BMP 10/16/17 07:10 10/16/17 07:10 Problem List - Problems (1) Oropharyngeal lesion Code(s): J39.2 - OTHER DISEASES OF PHARYNX (2) Oropharyngeal dysphagia Code(s): R13.12 - DYSPHAGIA, OROPHARYNGEAL PHASE Assessment/Plan Appears to be doing well. Able to eat Regular diet with no issues. Continue current care. Reconsult GI as needed.
--- NOTE | 2017-10-16 15:33 | PN ---
Progress Note (short form) - Note Progress Note: feels better hungry eating Vital Signs Period Temp Pulse Resp BP Sys/Vázquez Pulse Ox Last 24 Hr 97.7 F-98.5 F 66-109 18-20 118-133/51-67 99 no trismus tonsillar swelling unchanged cor rrr lungs clear no facial swelling noted CBC, BMP 10/16/17 07:10 10/16/17 07:10 Microbiology 10/14/17 22:00 Blood - Peripheral Venous Blood Culture - Preliminary NO GROWTH OBTAINED AFTER 24 HOURS, INCUBATION TO CONTINUE FOR 4 DAYS. 10/14/17 21:00 Blood - Peripheral Venous Blood Culture - Preliminary NO GROWTH OBTAINED AFTER 24 HOURS, INCUBATION TO CONTINUE FOR 4 DAYS. a/p peritonsillar abscess/phlegmon ent f/u should be treated for 14 days with clindamycin suspect leukocytosis is partially due to steroids Problem List - Problems (1) Peritonsillar abscess Code(s): J36 - PERITONSILLAR ABSCESS (2) Polysubstance (excluding opioids) dependence Code(s): F19.20 - OTHER PSYCHOACTIVE SUBSTANCE DEPENDENCE, UNCOMPLICATED (3) Seizure Code(s): R56.9 - UNSPECIFIED CONVULSIONS
[2017-10-16] MEDS: ACETAMINOPHEN 325 MG TABLET (FP) PO PRN (18:05)
--- NOTE | 2017-10-16 18:42 | PN ---
Progress Note (short form) - Note Progress Note: ENT pt reports feeling much better, less pain right throat, able to eat solid foods well PE NAD no trismus, opens widely, airway normal but right tonsil enlarged and still peritonsillar swelling minimal uvular deviation to left oropharygneal airway narrowed but paent voice minimal hot potato, no stridor or respiratory distress neck no mass, small nontender nodes Level 2 Impression right peritonsillar infection, improving clinically doing well, though persistent right peritonsillar swelling. Recommend; diet as tolerated continue antibiotics and steroids Brendon Jang MD Problem List - Problems (1) Sinusitis Code(s): J32.9 - CHRONIC SINUSITIS, UNSPECIFIED Qualifiers: Sinusitis location: maxillary Chronicity: unspecified Qualified Code(s): J32.0 - Chronic maxillary sinusitis (2) Odynophagia Code(s): R13.10 - DYSPHAGIA, UNSPECIFIED
[2017-10-16] MEDS: MIRTAZAPINE 15 MG TABLET (FP) PO SCH (22:04)
[2017-10-16] MEDS: DOXEPIN HCL 25 MG CAPSULE PO SCH (22:04)
[2017-10-17] MEDS: CLINDAMYCIN 600MG PREMIX IVPB 600 MG/50 ML BAG IVPB SCH ×3 (01:58→17:43)
--- NOTE | 2017-10-17 06:59 | PN ---
Physical Exam: SUBJECTIVE: Patient seen and examined at bedside. Throat pain is improving. No other complaints. OBJECTIVE: Vital Signs Period Temp Pulse Resp BP Sys/Vázquez Pulse Ox Last 24 Hr 97.9 F-98.5 F 66-109 18-20 131-143/59-82 98 GENERAL: Awake, alert, and fully oriented, in no acute distress. Anxious but intermittently suddenly drowsy. HEAD: Normal with no signs of trauma. EYES: extraocular movements intact, sclera anicteric, conjunctiva clear. No lid lag. EARS, NOSE, THROAT: R pharynx swelling with uvula deviation. Continues to improve . Moist mucous membranes. NECK: R tender lymphadenopathy, JVD, or masses. LUNGS: Breath sounds equal, clear to auscultation bilaterally. No wheezes, and no crackles. No accessory muscle use. HEART: Regular rate and rhythm, normal S1 and S2 without murmur, rub or gallop. ABDOMEN: Soft, nontender, not distended, normoactive bowel sounds, no guarding, no rebound, no masses. No hepatomegaly or splenomegaly. MUSCULOSKELETAL: Normal range of motion at all joints. No bony deformities or tenderness. No CVA tenderness. UPPER EXTREMITIES: 2+ pulses, warm, well-perfused. No cyanosis. No clubbing. No peripheral edema. LOWER EXTREMITIES: 2+ pulses, warm, well-perfused. No calf tenderness. No peripheral edema. NEUROLOGICAL: Cranial nerves II-XII intact. Normal speech. Normal gait. PSYCHIATRIC: Cooperative. Good eye contact. Appropriate mood and affect. SKIN: Warm, dry, normal turgor, no rashes or lesions noted, normal capillary refill. Laboratory Results - last 24 hr 10/16/17 10/16/17 07:10 07:10 WBC 19.4 H D RBC 5.20 Hgb 13.7 Hct 40.8 MCV 78.6 L MCH 26.3 MCHC 33.5 RDW 13.6 Plt Count 565 H MPV 8.5 Neutrophils % 91.2 H Lymphocytes % 5.3 L D Monocytes % 3.3 L Eosinophils % 0.0 Basophils % 0.2 Sodium 140 Potassium 4.9 Chloride 106 Carbon Dioxide 27 Anion Gap 7 L BUN 15 D Creatinine 0.7 Creat Clearance w eGFR > 60 Random Glucose 141 H Calcium 8.6 Total Bilirubin 0.2 D AST 8 L D ALT 21 Alkaline Phosphatase 74 Total Protein 7.3 Albumin 2.9 L Active Medications Generic Name Dose Route Start Last Admin Trade Name Adriana PRN Reason Stop Dose Admin Acetaminophen 325 mg 10/14/17 18:48 10/16/17 18:05 Tylenol - PO 325 mg Q6H PRN Administration PAIN LEVEL 6-10 Amlodipine Besylate 10 mg 10/14/17 18:30 10/16/17 09:58 Norvasc - PO 10 mg DAILY JEFFREY Administration Divalproex Sodium 500 mg 10/14/17 22:00 10/16/17 22:04 Depakote - PO 500 mg BID JEFFREY Administration Doxepin HCl 25 mg 10/14/17 22:00 10/16/17 22:04 Sinequan - PO 25 mg HS JEFFREY Administration Sodium Chloride 1,000 mls @ 100 mls/hr 10/14/17 18:00 10/16/17 22:03 Normal Saline - IV 100 mls/hr ASDIR JEFFREY Administration Clindamycin Phosphate 600 mg in 50 mls @ 100 mls/hr 10/15/17 14:15 10/17/17 01:58 Cleocin 600 Mg Premix Ivpb - IVPB 100 mls/hr Q8H-IV JEFFREY Administration Protocol Levetiracetam 750 mg 10/14/17 22:00 10/16/17 22:04 Keppra - PO 750 mg BID JEFFREY Administration Mirtazapine 45 mg 10/14/17 22:00 10/16/17 22:04 Remeron - PO 45 mg HS JEFFREY Administration Pantoprazole Sodium 40 mg 10/16/17 10:00 10/16/17 09:58 Protonix - PO 40 mg DAILY JEFFREY Administration Sodium Chloride 2 spray 10/14/17 22:00 10/16/17 22:05 [facility] [place] Nasal [place] - NS 2 spray BID JEFFREY Administration Thiamine HCl 100 mg 10/17/17 10:00 Vitamin B1 - PO DAILY JEFFREY ASSESSMENT/PLAN:
[2017-10-17 07:45] LABS: BASO % 0.2 % (0-2.0); HEMATOCRIT 41.4 % (35.4-49); HEMOGLOBIN 13.9 GM/dL (11.7-16.9); LYMPH % 23.3 % (8-40); MCH 26.3 pg (25.7-33.7); MCHC 33.6 g/dl (32.0-35.9); MEAN CELL VOLUME 78.3 fl (80-96); MEAN PLT VOLUME 8.1 fl (7.5-11.1); MONO % 7.8 % (3.8-10.2); NEUT % 68.7 % (42.8-82.8); PLATELET COUNT 543 K/MM3 (134-434); RBC 5.29 M/mm3 (4.00-5.60); RDW 13.6 % (11.9-15.9)
[2017-10-17 08:14] LABS: CHLORIDE 106 mmol/L (98-107); POTASSIUM 4.4 mmol/L (3.5-5.1); SODIUM 141 mmol/L (136-145)
[2017-10-17 08:18] LABS: ANION GAP 8 (8-16); BLOOD UREA NITROGEN 13 mg/dL (7-18); CALCIUM 8.5 mg/dL (8.5-10.1); CO2 27 mmol/L (21-32); CREATININE 0.6 mg/dL (0.7-1.3); GLUCOSE,RANDOM 95 mg/dL (74-106)
[2017-10-17] MEDS ORDERED: PT OWN MED DRAWER 7, Y5N ONE ×2 (08:33→10:42)
[2017-10-17] MEDS: ACETAMINOPHEN 325 MG TABLET (FP) PO PRN (08:36)
[2017-10-17] MEDS ORDERED: THIAMINE HCL 100 MG TABLET (FP) PO SCH (10:00)
[2017-10-17] MEDS: amLODIPine BESYLATE 10 MG TABLET (FP) PO SCH (10:38)
[2017-10-17] MEDS: levETIRAcetam 250 MG TABLET (FP) PO SCH (10:38)
[2017-10-17] MEDS: PANTOPRAZOLE 40 MG TABLET (FP) PO SCH (10:39)
[2017-10-17] MEDS: SODIUM CHLORIDE NASAL SPRAY 44 ML BOTTLE NS SCH (10:39)
[2017-10-17] MEDS: DIVALPROEX SODIUM 500 MG TABLET E.C. PO SCH (10:43)
--- NOTE | 2017-10-17 13:10 | PN ---
Progress Note (short form) - Note Progress Note: ENT tolerating po well, reports some pain with eating (solid) PE NAD resting comfortably no trismus, opens mouth widely tongue, floor of mouth WNL oropharynx: right tonsil with peritonsillar swelling but NO bulging of soft palate, oropharyngeal airway sl narrowed but patent, voice clear and strong, no stridor or respiratory distress Impression: acute tonsillitis with Right peritonsillar infection clinically improved since admission with IV fluid, antibiotic and steroid treatment Recommend diet as tolerated. OK to change to PO antibiotics as per ID if meets discharge criteria, OK for outpatient management from ENT perspective Pt needs to schedule follow-up visit in office next week. Brendon Jang MD FACS Problem List - Problems (1) Sinusitis Code(s): J32.9 - CHRONIC SINUSITIS, UNSPECIFIED Qualifiers: Sinusitis location: maxillary Chronicity: unspecified Qualified Code(s): J32.0 - Chronic maxillary sinusitis (2) Odynophagia Code(s): R13.10 - DYSPHAGIA, UNSPECIFIED
--- NOTE | 2017-10-17 15:05 | DS ---
Physical Exam: SUBJECTIVE: Patient seen and examined at bedside. Throat pain is improving. No other complaints. OBJECTIVE: Vital Signs Period Temp Pulse Resp BP Sys/Vázquez Pulse Ox Last 24 Hr 97.9 F-98.3 F 66-109 18-20 131-143/59-82 98 PHYSICAL EXAM GENERAL: Awake, alert, and fully oriented, in no acute distress. Anxious but intermittently suddenly drowsy. HEAD: Normal with no signs of trauma. EYES: extraocular movements intact, sclera anicteric, conjunctiva clear. No lid lag. EARS, NOSE, THROAT: R pharynx swelling with uvula deviation. Improving. Moist mucous membranes. NECK: R tender lymphadenopathy decreased, JVD, or masses. LUNGS: Breath sounds equal, clear to auscultation bilaterally. No wheezes, and no crackles. No accessory muscle use. HEART: Regular rate and rhythm, normal S1 and S2 without murmur, rub or gallop. ABDOMEN: Soft, nontender, not distended, normoactive bowel sounds, no guarding, no rebound, no masses. No hepatomegaly or splenomegaly. MUSCULOSKELETAL: Normal range of motion at all joints. No bony deformities or tenderness. No CVA tenderness. UPPER EXTREMITIES: 2+ pulses, warm, well-perfused. No cyanosis. No clubbing. No peripheral edema. LOWER EXTREMITIES: 2+ pulses, warm, well-perfused. No calf tenderness. No peripheral edema. NEUROLOGICAL: Cranial nerves II-XII intact. Normal speech. Normal gait. PSYCHIATRIC: Cooperative. Good eye contact. Appropriate mood and affect. SKIN: Warm, dry, normal turgor, no rashes or lesions noted, normal capillary refill. LABS Laboratory Results - last 24 hr 10/17/17 10/17/17 07:30 07:30 WBC 14.0 H RBC 5.29 Hgb 13.9 Hct 41.4 MCV 78.3 L MCH 26.3 MCHC 33.6 RDW 13.6 Plt Count 543 H MPV 8.1 Neutrophils % 68.7 D Lymphocytes % 23.3 D Monocytes % 7.8 D Eosinophils % 0.0 Basophils % 0.2 Sodium 141 Potassium 4.4 Chloride 106 Carbon Dioxide 27 Anion Gap 8 BUN 13 Creatinine 0.6 L Random Glucose 95 D Calcium 8.5 HOSPITAL COURSE: Date of Admission:10/14/17 Date of Discharge: 10/17/17 Pt is a 32 y/o M with PMH HTN and polysubstance abuse who presented to ED with 3 weeks throat pain and swelling. Pt admitted for evaluation and workup of peritonsillar abscess. Pt had hot potato voice (no stridor), R tender LAD, and leukocytosis in ED. CT confirmed peritonsillar abscess. Pt was seen by ENT who did laryngoscopy and determined that pt's airway was not in jeopardy. Pt was initially given Ancef, which was changed to Unasyn. ID saw the patient and changed Abx to Clindamycin. Pt has been recovering well. Pharyngeal swelling has decreased greatly. Pt is afebrile and comfortable. No difficulty eating. Pt is stable for discharge with Clindamycin for 14d and follow up with ENT within 2 days. Minutes to complete discharge: 30 Discharge Summary Reason For Visit: ENLARGED TONSILS,OXOPHARYNGEAL DYSPHAGIA Current Active Problems Odynophagia (Acute) Oropharyngeal dysphagia (Acute) Oropharyngeal lesion (Acute) Peritonsillar abscess (Acute) Polysubstance (excluding opioids) dependence (Acute) Sinusitis (Acute) Condition: Stable - Instructions Diet, Activity, Other Instructions: You are being sent home with an antibiotic. Please take it for 14 days. Go to hospital if you develop difficulty in breathing, swallowing and if throat swelling increases. Follow up with ENT Dr. Suhail Olivas in next week, contact information has been provided. Continue your home medications as before You are given information of medical clinic in case you wish to follow up here. Advise light activity. No driving, operating heavy machinery, being with children alone or being on heights or in water alone which you are on seizure meidcaitons. Please return to the emergency department with any new or worsening symptoms or concerns. Please follow up with ear,nose,throat doctor within 24-72 hours. if you notice any new nausea, vomiting, diarrhea, blood in stools or any new concerns on the antibiotic, call 911 or come to ED. Referrals: Valeriy Laurent [Primary Care Provider] - Brendon Jang MD [Staff Physician] - Disposition: HOME - Home Medications Comprehensive Discharge Medication List: Ambulatory Orders Mirtazapine [Remeron -] 45 mg PO HS #30 tablet 08/20/17 Amlodipine Besylate 10 mg PO DAILY #30 tablet 08/22/17 Divalproex [Depakote -] 500 mg PO BID 10/14/17 Doxepin HCl [Sinequan -] 15 mg PO DAILY 10/14/17 Levetiracetam [Keppra] 750 mg PO BID 10/14/17 Clindamycin [Cleocin -] 600 mg PO Q8H #42 capsule 10/17/17 This patient is new to me today: No Emergency Visit: No Critical Care patient: No - Discharge Referral Referred to [facility] No
[2017-10-17 15:44] VITALS: BP 139/59; PULSE 75; TEMP 98.7
--- NOTE | 2017-10-17 18:04 | PN ---
Teaching Attending Note Name of Resident: Cirilo Brenner ATTENDING PHYSICIAN STATEMENT I saw and evaluated the patient. I reviewed the resident's note and discussed the case with the resident. I agree with the resident's findings and plan as documented with exceptions below. SUBJECTIVE: Patient seen and examined. continues to improve, no new dyspnea, tolerating diet well. OBJECTIVE: Vital Signs Period Temp Pulse Resp BP Sys/Vázquez Pulse Ox Last 24 Hr 97.9 F-98.7 F 66-96 18-19 130-143/59-82 98-99 Intake & Output 10/14/17 10/15/17 10/16/17 10/17/17 23:59 23:59 23:59 23:59 Intake Total 1050 2472 507 9159 Output Total 900 Balance 1050 754 190 5289 Weight 165 lb 0.009 oz 165 lb General: lying in bed in no acute distress HEENT: improved tonsillar swelling and uvular deviation, no discharge or erythema noted Home Medication List Medication Instructions Recorded Confirmed Type Divalproex [Depakote -] 500 mg PO BID 10/14/17 10/14/17 History Doxepin HCl [Sinequan -] 15 mg PO DAILY 10/14/17 10/14/17 History Levetiracetam [Keppra] 750 mg PO BID 10/14/17 10/14/17 History Microbiology 10/14/17 22:00 Blood - Peripheral Venous Blood Culture - Preliminary NO GROWTH OBTAINED AFTER 48 HOURS, INCUBATION TO CONTINUE FOR 3 DAYS. 10/14/17 21:00 Blood - Peripheral Venous Blood Culture - Preliminary NO GROWTH OBTAINED AFTER 48 HOURS, INCUBATION TO CONTINUE FOR 3 DAYS. Laboratory Results - last 24 hr 10/17/17 10/17/17 07:30 07:30 WBC 14.0 H RBC 5.29 Hgb 13.9 Hct 41.4 MCV 78.3 L MCH 26.3 MCHC 33.6 RDW 13.6 Plt Count 543 H MPV 8.1 Neutrophils % 68.7 D Lymphocytes % 23.3 D Monocytes % 7.8 D Eosinophils % 0.0 Basophils % 0.2 Sodium 141 Potassium 4.4 Chloride 106 Carbon Dioxide 27 Anion Gap 8 BUN 13 Creatinine 0.6 L Random Glucose 95 D Calcium 8.5 ASSESSMENT AND PLAN: 32 yom with polysubstance abuse, recent reported glass ingestion s/p ?EGD removal here with right tonsillitis with swelling and ?intermittent hemoptysis vs hemetemesis. -Right tonsillits with swelling/uvular deviation and ?early abscess -Leucocytosis, ?steroid induced demargination -recent glass ingestion with reported hemoptysis/hemetemesis -polysubstance abuse Plan: Continues to improve, afebrile, WBC improved (suspect rise steroid induced) Off steroids > 24 hours with no concerns. Tolerating diet well, no respiratory concerns. Discussed with ENT/ID, plan for clindamycin for 2 weeks and outpatient follow up. D/c home today. Plan discussed with patient
== END 2017-10-17 17:46 | disposition home or self-care (01) | DRG 813 ==
LOC: JER 02:28 → JERBED 10:21 → J5S 14:15 → OBSVTOIN 17:58
PROVIDERS: ADMIT Family Medicine; ATTEND Hospitalist
DX: T81.9XXA Unspecified complication of procedure, initial encounter (principal); F13.20 Sedative, hypnotic or anxiolytic dependence, uncomplicated; R13.12 Dysphagia, oropharyngeal phase; J36 Peritonsillar abscess; Y83.8 Other surgical procedures as the cause of abnormal reaction of the patient, or of later complication, without mention of misadventure at the time of the procedure; J32.9 Chronic sinusitis, unspecified; I10 Essential (primary) hypertension; G40.89 Other seizures; Z59.0 Homelessness; F10.230 Alcohol dependence with withdrawal, uncomplicated; F12.20 Cannabis dependence, uncomplicated; F14.10 Cocaine abuse, uncomplicated; F11.10 Opioid abuse, uncomplicated; F31.9 Bipolar disorder, unspecified; K59.00 Constipation, unspecified; F17.210 Nicotine dependence, cigarettes, uncomplicated; F41.9 Anxiety disorder, unspecified
CPT/HCPCS: 36415; 70491-TC; 80048; 80053; 80164; 80307; 82550; 84132; 85025; 87040; 90688; 93005; 93010; 99281-25; G0008; G0378; J1100; J7030

== ENCOUNTER 2018-01-23 18:52 | Inpatient (IN) | payer OTHER ==
[2018-01-23 20:26] VITALS: BMI 22.5
--- NOTE | 2018-01-23 21:31 | HP ---
"CIWA Score - CIWA Score Nausea/Vomitin-Mild Nausea/No Vomiting Muscle Tremors: 4-Moderate,w/Arms Extend Anxiety: 4-Mod. Anxious/Guarded Agitation: 1-Slight > Activity Paroxysmal Sweats: 4-Forehead w/Sweat Beads Orientation: 0-Oriented Tacttile Disturbances: 1-Very Mild Itch/Numbness Auditory Disturbances: 0-None Visual Disturbances: 0-None Headache: 1-Very Mild CIWA-Ar Total Score: 16 Admission ROS [facility] - [facility] Chief Complaint: Here for alcohol withdrawal complicated by PCP and cocaine use. Allergies/Adverse Reactions: Allergies Allergy/AdvReac Type Severity Reaction Status Date / Time ibuprofen [From Motrin] Allergy Severe Swelling Verified 01/19/18 17:24 peanut Allergy Severe Swelling Verified 01/19/18 17:24 History of Present Illness: Hx alcohol use since age 19; cocaine/crack use since age 20; and PCP use since age 21. Also smokes marijuana on occasion. Has had multiple attempts at detox and states sobriety efforts only last for, at most, a day. States hx seizures r/t alcohol withdrawal. Hx blackouts. States has not taken seizure medications x 1 month. Hx. HTN and on medications but has not take for 1 month. Search Terms: Eusebio Daniels, 1985 Search Date: 01/23/2018 09:18:52 PM The Drug Utilization Report below displays all of the controlled substance prescriptions, if any, that your patient has filled in the last twelve months. The information displayed on this report is compiled from pharmacy submissions to the Department, and accurately reflects the information as submitted by the pharmacies. This report was requested by: Tayler Esquivel | Reference #: [id number] Patient Name: Eusebio Daniels Date: 1985 Address: [address] [place] [address] Sex: Male Rx Written Rx Dispensed Drug Quantity Days Supply Prescriber Name 08/09/2017 08/09/2017 chlordiazepoxide 25 mg capsule 26 5 Giana Middleton 08/08/2017 08/08/2017 chlordiazepoxide 25 mg capsule 26 5 Jairo Rosario MD Exam Limitations: No Limitations - Ebola screening Have you traveled outside of the country in the last 21 days: No Have you had contact with anyone from an Ebola affected area: No Have you been sick,other than usual withdrawal symptoms: No Do you have a fever: No - Review of Systems Constitutional: Chills, Diaphoresis, Changes in sleep (Difficulty falling and staying asleep) EENT: reports: Blurred Vision (Supposed to wear glasses.), Dental Problems ( Missing some teeth. Able to chew and swallow okay.), Throat Pain (Seen and treated with steroids and antibotics, 2 days ago for throat pain with tonsilar swelling @ [facility]. Did not get a prescription for antibiotics.), Other (Hit in (L ) eye 2 days ago and eyes has been red and painful since then w/ increased blurredness. Denies black spots.) Respiratory: reports: No Symptoms reported Cardiac: reports: No Symptoms Reported, Other (High blood pressure. Last took blood pressure meds 1 month ago.) GI: reports: Nausea : reports: No Symptoms Reported Musculoskeletal: reports: No Symptoms Reported Integumentary: reports: No Symptoms Reported Neuro: reports: Headache (Mild r/t withdrawal), Seizure (last one was in December 2017 Patient Name: John Trujillo Date: 12/28/1973 Address: [address] [place] [address] Sex: Male Rx Written Rx Dispensed Drug Quantity Days Supply Prescriber Name States last seizure was December 2017 while in detox), Tremors Endocrine: reports: No Symptoms Reported Hematology: reports: No Symptoms Reported Psychiatric: reports: Orientated x3, Agitated, Anxious, Depressed (Denies thoughts of harming self or others) Patient History - Patient Medical History Hx Anemia: No Hx Asthma: No Hx Chronic Obstructive Pulmonary Disease (COPD): No Hx Cancer: No Hx Cardiac Disorders: No Hx Congestive Heart Failure: No Hx Hypertension: Yes Hx Hypercholesterolemia: No Hx Pacemaker: No HX Cerebrovascular Accident: No Hx Seizures: Yes (alcohol related-last episode was in 06/2017) Hx Dementia: No Hx Diabetes: No Hx Gastrointestinal Disorders: No Hx Liver Disease: No Hx Genitourinary Disorders: No Hx Sexually Transmitted Disorders: No Hx Renal Disease (ESRD): No Hx Thyroid Disease: No Hx Human Immunodeficiency Virus (HIV): No ( last 09/23) Hx Hepatitis C: No Hx Depression: No Hx Suicide Attempt: No Hx Bipolar Disorder: Yes (NON COMPLIANCE) Hx Schizophrenia: No - Patient Surgical History Past Surgical History: Yes Hx Neurologic Surgery: No Hx Cataract Extraction: No Hx Cardiac Surgery: No Hx Lung Surgery: No Hx Breast Surgery: No Hx Breast Biopsy: No Hx Abdominal Surgery: (left inguinal hernia repair at childhood) Hx Appendectomy: No Hx Cholecystectomy: No Hx Genitourinary Surgery: No Hx Section: No Hx Orthopedic Surgery: Yes (fx, chin, left side jaw at age 14) Other Surgical History: left inguinal hernia repair Anesthesia Reaction: No - PPD History Previous Implant?: Yes Documented Results: Negative w/proof Implanted On Prior [facility] Admission?: Yes Date: 08/21/17 Results: 0 mm PPD to be Administered?: No - Smoking Cessation Smoking history: Current every day smoker Have you smoked in the past 12 months: Yes Aproximately how many cigarettes per day: 20 Cigars Per Day: 0 Hx Chewing Tobacco Use: No Initiated information on smoking cessation: Yes 'Breaking Loose' booklet given: 01/23/18 - Substance & Tx. History Hx Alcohol Use: Yes Hx Substance Use: Yes Substance Use Type: Alcohol, Cocaine, Tranquilizers (PCP) Hx Substance Use Treatment: Yes (Multiple detoxes) - Substances Abused Alcohol Route: Oral Frequency: Daily Amount used: 1/2 gallon kannan Age of first use: 19 Date of Last Use: 01/23/18 PCP Route: Smoking Frequency: 1-3 times last 30 days Amount used: 3 blunts Age of first use: 21 Date of Last Use: 01/23/18 Cocaine Route: Smoking Frequency: Daily Amount used: $200 Age of first use: 20 Date of Last Use: 01/23/18 Family Disease History - Family Disease History Family Disease History: Diabetes: Grandparent, Father, Heart Disease: Mother ( HTN; STOPPED ETOH AND DRUGS 19 YRS. AGO), Other: Father, Mother Admission Physical Exam S - Vital Signs Vital Signs: Vital Signs - 24 hr 01/23/18 20:24 Temperature 97.5 F L Pulse Rate 99 H Respiratory 18 Rate Blood Pressure 143/82 - Physical General Appearance: Yes: Moderate Distress, Tremorous, Sweating, Anxious HEENTM: Yes: EOMI, Hearing grossly Normal, Normal Voice, RADU, Other (Both eyes w/ scleral erythema (L) eye. 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 NML intact, Fully Oriented, Alert, Motor Strength 5/5, Normal Mood/Affect Integumentary: Yes: Normal Color, Dry, Warm Lymphatic: Yes: Within Normal Limits - Diagnostic (1) Alcohol dependence with uncomplicated withdrawal Current Visit: Yes Status: Acute (2) Cocaine dependence, uncomplicated Current Visit: Yes Status: Acute (3) Nicotine dependence Current Visit: Yes Status: Acute Qualifiers: Nicotine product type: cigarettes Substance use status: in withdrawal Qualified Code(s): F17.213 - Nicotine dependence, cigarettes, with withdrawal (4) Essential hypertension Current Visit: Yes Status: Chronic (5) PCP (phencyclidine) abuse Current Visit: Yes Status: Chronic Cleared for Admission [facility] - Detox or Rehab [facility] Level of Care: Medically Managed Detox Regimen/Protocol: Librium [facility] Breath Alcohol Content Breath Alcohol Content: 0 Urine Drug Screen - Results Drug Screen Negative: No Urine Drug Screen Results: GILLIAN-Cocaine, PCP-Phencyclidine"
[2018-01-23] MEDS ORDERED: MAGNESIUM HYDROX 2400MG/30ML ORAL SUSPENSION 30 ML CUP PO PRN (22:04)
[2018-01-23] MEDS ORDERED: MENTHOL/PHENOL 1 EACH UD MM PRN (22:04)
[2018-01-23] MEDS ORDERED: chlordiazePOXIDE HCL 25 MG CAPSULE PO PRN (22:04)
[2018-01-23] MEDS ORDERED: NICOTINE POLACRILEX 4 MG GUM BC PRN (22:04)
[2018-01-23] MEDS ORDERED: guaiFENesin/D-METHORPHAN HB 10 ML UNIT-DOSE CUPS PO PRN (22:04)
[2018-01-23] MEDS ORDERED: IBUPROFEN 400 MG TABLET (FP) PO PRN (22:04)
[2018-01-23] MEDS ORDERED: MAGNESIUM CITRATE 300 ML BOTTLE PO PRN (22:04)
[2018-01-23] MEDS ORDERED: P-EPHED 60MG/TRIPROLIDI 2.5MG TABLET PO PRN (22:04)
[2018-01-23] MEDS ORDERED: LOPERAMIDE HCL 2 MG CAPSULE PO PRN (22:04)
[2018-01-23] MEDS ORDERED: MAG HYDROX/AL HYDROX/SIMETH 30 ML UNIT-DOSE CUP PO PRN (22:04)
[2018-01-23] MEDS ORDERED: ACETAMINOPHEN 325 MG TABLET (FP) PO PRN (22:04)
[2018-01-23] MEDS: hydrOXYzine PAMOATE 50 MG CAPSULE (FP) PO PRN (23:05)
[2018-01-23] MEDS: chlordiazePOXIDE HCL 25 MG CAPSULE PO SCH (23:05)
[2018-01-23] MEDS: MELATONIN 5 MG TABLETS PO PRN (23:09)
[2018-01-24] MEDS: chlordiazePOXIDE HCL 25 MG CAPSULE PO SCH ×4 (07:49→22:28)
[2018-01-24 10:31] LABS: URINE APPEARANCE TURBID; URINE BILIRUBIN NEGATIVE (<2.0 mg/dL); URINE COLOR AMBER; URINE GLUCOSE (UA) NEGATIVE (NEGATIVE); URINE KETONE TRACE (NEGATIVE); URINE LEUK ESTERASE NEGATIVE (NEGATIVE); URINE NITRITE NEGATIVE (NEGATIVE); URINE PROTEIN NEGATIVE (NEGATIVE); URINE UROBILINOGEN 4.0 E.U/dl mg/dL (0.2-1.0)
[2018-01-24 10:38] LABS: HEMATOCRIT 37.9 % (35.4-49); HEMOGLOBIN 12.7 GM/dL (11.7-16.9); MCH 26.2 pg (25.7-33.7); MCHC 33.5 g/dl (32.0-35.9); MEAN CELL VOLUME 78.3 fl (80-96); MEAN PLT VOLUME 8.4 fl (7.5-11.1); PLATELET COUNT 346 K/MM3 (134-434); RBC 4.85 M/mm3 (4.00-5.60); RDW 13.9 % (11.9-15.9); WHITE BLOOD COUNT 7.5 K/mm3 (4.0-10.0)
[2018-01-24] MEDS: amLODIPine BESYLATE 10 MG TABLET (FP) PO SCH (10:49)
[2018-01-24] MEDS: PRENATAL VITAMINS W/ FOLIC ACID TABLET (FP) PO SCH (10:49)
[2018-01-24] MEDS: hydrOXYzine PAMOATE 50 MG CAPSULE (FP) PO PRN ×2 (10:51→22:29)
[2018-01-24 10:53] LABS: ALBUMIN 3.2 g/dl (3.4-5.0); ANION GAP 8 (8-16); BLOOD UREA NITROGEN 17 mg/dL (7-18); CALCIUM 8.6 mg/dL (8.5-10.1); CHLORIDE 104 mmol/L (98-107); CO2 28 mmol/L (21-32); GLUCOSE,RANDOM 77 mg/dL (74-106); POTASSIUM 4.1 mmol/L (3.5-5.1); SGPT/ALT 84 U/L (12-78); SODIUM 140 mmol/L (136-145)
[2018-01-24 10:56] LABS: ALK PHOS 88 U/L (45-117); BILIRUBIN,TOTAL 0.6 mg/dL (0.2-1.0); CREATININE 0.8 mg/dL (0.7-1.3); SGOT/AST 53 U/L (15-37); TOT PROT 6.7 g/dl (6.4-8.2)
--- NOTE | 2018-01-24 13:06 | PN ---
[facility] CIWA - CIWA Score Nausea/Vomitin Muscle Tremors: 3 Anxiety: 3 Agitation: 3 Paroxysmal Sweats: 1-Minimal Palms Moist Orientation: 0-Oriented Tacttile Disturbances: 1-Very Mild Itch/Numbness Auditory Disturbances: 1-Very Mild Visual Disturbances: 0-None Headache: 2-Mild CIWA-Ar Total Score: 17 [facility] Progress Note (SOAP) Subjective: alert,irritable,anxious,interrupted sleep,tremor,stated had injury to left eye 4 days ago,complaining with pain in the left eye ,redness of left eye,denied seizure history Objective: 01/24/18 13:18 Vital Signs Temperature 97.7 F 01/24/18 09:53 Pulse Rate 106 H 01/24/18 09:53 Respiratory Rate 16 01/24/18 09:53 Blood Pressure 144/91 01/24/18 09:53 O2 Sat by Pulse Oximetry (%) 01/24/18 13:18 patient refused to be examined and go to er for evaluation and treatment of left eye, signed ama Assessment: 01/24/18 13:21 withdrawal symptom Plan: continue detox
--- NOTE | 2018-01-24 14:14 | CONSULT ---
[facility] Psychiatric Consult - Data Date of interview: 01/24/18 Admission source: [facility] Identifying data: This is one of multiple admissions to [facility] for this 32 y/ o AA male seeking detox treatment for alcohol,marijuana,cocaine (crack) and phencyclidine dependence.Patient is ,a father of two,undomiciled, unemployed and reportedly deprived of any source of income. Substance Abuse History: Discussed in this session.patient confirms details in [facility] report on his substance abuse patterns : Smoking history: Current every day smoker. Have you smoked in the past 12 months: Yes. Aproximately how many cigarettes per day: 20. Cigars Per Day: 0. Hx Chewing Tobacco Use: No. Initiated information on smoking cessation: Yes. 'Breaking Loose' booklet given : 01/23/18. - Substance & Tx. History. Hx Alcohol Use: Yes. Hx Substance Use : Yes. Substance Use Type: Alcohol, Cocaine, Tranquilizers (PCP). Hx Substance Use Treatment: Yes (Multiple detoxes). - Substances Abused. Alcohol. Route: Oral. Frequency: Daily. Amount used: 1/2 gallon kannan. Age of first use: 19. Date of Last Use: 01/23/18. PCP. Route: Smoking. Frequency: 1-3 times last 30 days. Amount used: 3 blunts. Age of first use: 21. Date of Last Use: 01/23/18. Cocaine. Route: Smoking. Frequency: Daily. Amount used: $200. Age of first use: 20. Date of Last Use: 01/23/18 Medical History: Hypertension,scoliosis,withdrawal seizures,past treatment for herpes genitalis,and a history of left inguinal herniorraphy.History of head trauma and orthopedic surgery for fracture of mandible (age 14). Psychiatric History: Patient, in this interview, denies history of psychiatric hospitalizations.Mr Daniels admits to maintenance on seroquel 100 mg/hs + remeron 45 mg/hs.No reported contact with mental healthcare providers.Patient gets refills from his primary care physician (self-report)." I don't have a psychiatric diagnosis or, maybe, I don't recall.Anyway I don't really care too much, one way or another.I am fine." At a previous interview with this commercial underwriter, the patient had endorsed the diagnosis of Bipolar Disorder + history of one psychiatric hospitalization in 1999.Denies history of suicide attempts. Physical/Sexual Abuse/Trauma History: Patient denies. Additional Comment: Urine Drug Screen Results: GILLIAN-Cocaine, PCP- Phencyclidine.Noted. Mental Status Exam - Mental Status Exam Alert and Oriented to: Time, Place, Person Cognitive Function: Good Patient Appearance: Well Groomed Mood: Withdrawn Affect: Appropriate, Normal Range Patient Behavior: Fatigued, Cooperative Speech Pattern: Clear Voice Loudness: Normal Thought Process: Intact, Goal Oriented Thought Disorder: Not Present Hallucinations: Denies Suicidal Ideation: Denies Homicidal Ideation: Denies Insight/Judgement: Poor Sleep: Poorly, Difficulty falling asleep Appetite: Good Muscle strength/Tone: Normal Gait/Station: Normal Psychiatric Findings - Problem List (Gibbs 1, 2,3) (1) Alcohol dependence with uncomplicated withdrawal Current Visit: Yes Status: Acute (2) Cocaine dependence, uncomplicated Current Visit: Yes Status: Acute (3) PCP dependence Current Visit: Yes Status: Acute (4) Nicotine dependence Current Visit: Yes Status: Acute Qualifiers: Nicotine product type: cigarettes Substance use status: in withdrawal Qualified Code(s): F17.213 - Nicotine dependence, cigarettes, with withdrawal (5) Drug-induced mood disorder Current Visit: Yes Status: Acute (6) Insomnia Current Visit: Yes Status: Acute (7) Non-compliance with treatment Current Visit: Yes Status: Chronic Comment: As outpatient. - Initial Treatment Plan Initial Treatment Plan: Records reviewed.Psychoeducation started.Detoxification in progress.Medications resumed at patient's request : seroquel 100 mg po hs + remeron 15 mg (reduced dose) po hs.Side effects/benefits of both drugs are discussed with the patient.Mr Daniels is in agrrement with this careplan.Observation.
[2018-01-24] MEDS: NICOTINE 21 MG/24 HOURS TOPICAL PATCH TD SCH (14:30)
--- NOTE | 2018-01-24 18:59 | EKG ---
Test Reason : Blood Pressure : / mmHG Vent. Rate : 082 BPM Atrial Rate : 082 BPM P-R Int : 114 ms QRS Dur : 112 ms QT Int : 390 ms P-R-T Axes : 076 070 063 degrees QTc Int : 455 ms NORMAL SINUS RHYTHM WITH SINUS ARRHYTHMIA NONSPECIFIC T WAVE ABNORMALITY ABNORMAL ECG WHEN COMPARED WITH ECG OF 15-DEC-2017 13:28, QT HAS LENGTHENED Confirmed by MD JOYA, CHARLETTE ([id number]) on 01/24/2018 6:59:17 PM Referred By: Confirmed By:CHARLETTE HINSON MD
[2018-01-24] MEDS ORDERED: QUEtiapine FUMARATE 100 MG TABLET (FP) PO SCH (22:00)
[2018-01-24] MEDS ORDERED: THIAMINE HCL 100 MG TABLET (FP) PO SCH (22:00)
[2018-01-24] MEDS ORDERED: MIRTAZAPINE 15 MG TABLET (FP) PO SCH (22:00)
[2018-01-24] MEDS: MELATONIN 5 MG TABLETS PO PRN (22:29)
[2018-01-25] MEDS: chlordiazePOXIDE HCL 25 MG CAPSULE PO SCH ×2 (07:43→11:07)
[2018-01-25] MEDS: PRENATAL VITAMINS W/ FOLIC ACID TABLET (FP) PO SCH (11:07)
[2018-01-25] MEDS: NICOTINE 21 MG/24 HOURS TOPICAL PATCH TD SCH (11:07)
[2018-01-25] MEDS: amLODIPine BESYLATE 10 MG TABLET (FP) PO SCH (11:07)
[2018-01-25 15:12] VITALS: BP 136/91; PULSE 95; TEMP 98.2
--- NOTE | 2018-01-25 16:44 | PN ---
[facility] Progress Note Note: Patient seen and states he is leaving. Declines reason for departure and refuses to stay despite encouragement. States "I am fine". Lab Results WBC 7.5 K/mm3 (4.0-10.0) 01/24/18 08:00 RBC 4.85 M/mm3 (4.00-5.60) 01/24/18 08:00 Hgb 12.7 GM/dL (11.7-16.9) 01/24/18 08:00 Hct 37.9 % (35.4-49) 01/24/18 08:00 MCV 78.3 fl (80-96) L 01/24/18 08:00 MCHC 33.5 g/dl (32.0-35.9) 01/24/18 08:00 RDW 13.9 % (11.9-15.9) 01/24/18 08:00 Plt Count 346 K/MM3 (134-434) D 01/24/18 08:00 Sodium 140 mmol/L (136-145) 01/24/18 08:00 Potassium 4.1 mmol/L (3.5-5.1) 01/24/18 08:00 Chloride 104 mmol/L (98-107) 01/24/18 08:00 Carbon Dioxide 28 mmol/L (21-32) 01/24/18 08:00 Anion Gap 8 (8-16) 01/24/18 08:00 BUN 17 mg/dL (7-18) 01/24/18 08:00 Creatinine 0.8 mg/dL (0.7-1.3) 01/24/18 08:00 Random Glucose 77 mg/dL (74-106) D 01/24/18 08:00 Calcium 8.6 mg/dL (8.5-10.1) 01/24/18 08:00 Vital Signs - 24 hr 01/24/18 01/24/18 01/25/18 18:10 23:01 00:30 Temperature 98.7 F 97.9 F Pulse Rate 109 H 82 Respiratory 19 20 18 Rate Blood Pressure 134/96 130/61 01/25/18 01/25/18 01/25/18 03:30 07:28 10:00 Temperature 97.5 F L 97.6 F Pulse Rate 82 90 Respiratory 18 18 18 Rate Blood Pressure 125/69 119/85 01/25/18 15:11 Temperature 98.2 F Pulse Rate 95 H Respiratory 20 Rate Blood Pressure 136/91 Alert and oriented x 3. Mild tremors of hands. Gait steady. (L) sclera w/ erythema and w/o discharge. Encouraged to f/u with eye doctor or go to ER for evaluation but states eye is better. Patient Left unit AMA despite being aware of health risks.
--- NOTE | 2018-01-25 16:55 | DS ---
[facility] Detox Discharge Summary Admission Date: 01/23/18 Discharge Date: 01/25/18 - History Present History: Alcohol Dependence Additional Comments: Patient A&O x 3. Mild tremors of hands. Gait steady. Aware of overdose and health risks. Pertinent Past History: Trauma to (L) eye prior to admission w/ increased erythema. - Physical Exam Results Vital Signs: Vital Signs Temperature 98.2 F 01/25/18 15:11 Pulse Rate 95 H 01/25/18 15:11 Respiratory Rate 20 01/25/18 15:11 Blood Pressure 136/91 01/25/18 15:11 O2 Sat by Pulse Oximetry (%) Pertinent Admission Physical Exam Findings: Alcohol withdrawal. (L) eye injury noted on admission. Laboratory Tests 01/24/18 01/24/18 01/24/18 08:00 08:00 08:00 WBC 7.5 RBC 4.85 Hgb 12.7 Hct 37.9 MCV 78.3 L MCH 26.2 MCHC 33.5 RDW 13.9 Plt Count 346 D MPV 8.4 Sodium 140 Potassium 4.1 Chloride 104 Carbon Dioxide 28 Anion Gap 8 BUN 17 Creatinine 0.8 Creat Clearance w eGFR > 60 Random Glucose 77 D Calcium 8.6 Total Bilirubin 0.6 AST 53 H D ALT 84 H D Alkaline Phosphatase 88 D Total Protein 6.7 Albumin 3.2 L Urine Color Urine Appearance Urine pH Ur Specific [place] Urine Protein Urine Glucose (UA) Urine Ketones Urine Blood Urine Nitrite Urine Bilirubin Urine Urobilinogen Ur Leukocyte Esterase Valproic Acid RPR Titer Nonreactive 01/24/18 01/25/18 08:30 05:50 WBC RBC Hgb Hct MCV MCH MCHC RDW Plt Count MPV Sodium Potassium Chloride Carbon Dioxide Anion Gap BUN Creatinine Creat Clearance w eGFR Random Glucose Calcium Total Bilirubin AST ALT Alkaline Phosphatase Total Protein Albumin Urine Color [place] Urine Appearance Turbid Urine pH 5.0 Ur Specific [place] 1.029 Urine Protein Negative Urine Glucose (UA) Negative Urine Ketones Trace H Urine Blood Negative Urine Nitrite Negative Urine Bilirubin Negative Urine Urobilinogen 4.0 e.u/dl Ur Leukocyte Esterase Negative Valproic Acid 7.7 L RPR Titer Vital Signs - 24 hr 01/24/18 01/24/18 01/25/18 18:10 23:01 00:30 Temperature 98.7 F 97.9 F Pulse Rate 109 H 82 Respiratory 19 20 18 Rate Blood Pressure 134/96 130/61 01/25/18 01/25/18 01/25/18 03:30 07:28 10:00 Temperature 97.5 F L 97.6 F Pulse Rate 82 90 Respiratory 18 18 18 Rate Blood Pressure 125/69 119/85 01/25/18 15:11 Temperature 98.2 F Pulse Rate 95 H Respiratory 20 Rate Blood Pressure 136/91 - Treatment Hospital Course: Detox Protocol Followed (Did not complete detox.) - Medication Discharge Medications: Ambulatory Orders Divalproex [Depakote -] 1,500 mg PO BID 12/17/17 levETIRAcetam [Keppra -] 1,000 mg PO BID 12/17/17 Amlodipine Besylate 10 mg PO DAILY #30 tablet 12/18/17 - Diagnosis (1) Alcohol dependence with uncomplicated withdrawal Status: Acute (2) Cocaine dependence, uncomplicated Status: Acute (3) Nicotine dependence Status: Acute Qualifiers: Nicotine product type: cigarettes Substance use status: in withdrawal Qualified Code(s): F17.213 - Nicotine dependence, cigarettes, with withdrawal (4) Essential hypertension Status: Chronic (5) PCP (phencyclidine) abuse Status: Chronic (6) Left eye injury Status: Chronic Qualifiers: Encounter type: subsequent encounter Qualified Code(s): S05.92XD - Unspecified injury of left eye and orbit, subsequent encounter - AMA Did Patient Leave Against Medical Advice: Yes
[2018-01-25] MEDS ORDERED: chlordiazePOXIDE 5 MG CAPSULE PO SCH (23:00)
[2018-01-26] MEDS ORDERED: chlordiazePOXIDE HCL 10 MG CAPSULE PO SCH (23:00)
== END 2018-01-25 15:30 | disposition left against medical advice (07) | DRG 770 ==
LOC: YASAS 18:52 → Y6N 22:40
PROVIDERS: ADMIT Surgery; ATTEND Surgery
PROC: HZ2ZZZZ Detoxification Services for Substance Abuse Treatment (ICD-10-PCS; principal; 2018-01-25)
DX: F10.230 Alcohol dependence with withdrawal, uncomplicated (principal); F14.20 Cocaine dependence, uncomplicated; F16.10 Hallucinogen abuse, uncomplicated; F17.213 Nicotine dependence, cigarettes, with withdrawal; F19.24 Other psychoactive substance dependence with psychoactive substance-induced mood disorder; I10 Essential (primary) hypertension; G47.00 Insomnia, unspecified; S05.92XS Unspecified injury of left eye and orbit, sequela; X58.XXXS Exposure to other specified factors, sequela; Z91.14 Patient's other noncompliance with medication regimen; Z88.6 Allergy status to analgesic agent; Z91.010 Allergy to peanuts; Z87.438 Personal history of other diseases of male genital organs; Z86.69 Personal history of other diseases of the nervous system and sense organs; Z91.19 Patient's noncompliance with other medical treatment and regimen; Z59.0 Homelessness
CPT/HCPCS: 36415; 80053; 80164; 81003; 85027; 86593; 93005; 93010

== ENCOUNTER 2022-02-22 03:11 | Emergency (ER) | payer OTHER ==
[2022-02-22 03:41] VITALS: BMI 25.0
[2022-02-22] MEDS ORDERED: ACETAMINOPHEN 1000 MG/100 ML BAG IVPB ONE (04:22)
[2022-02-22] MEDS ORDERED: ACETAMINOPHEN INJECTION 100 ML IVPB ONE (04:58)
[2022-02-22] MEDS ORDERED: amLODIPine BESYLATE 10 MG TABLET (FP) ONE (05:24)
[2022-02-22 05:34] LABS: BASO % 0.8 % (0-2.0); EOS % 0.8 % (0-4.5); HEMATOCRIT 38.4 % (35.4-49); HEMOGLOBIN 12.6 GM/dL (11.7-16.9); LYMPH % 14.1 % (8-40); MCH 25.8 pg (25.7-33.7); MCHC 32.8 g/dl (32.0-35.9); MEAN CELL VOLUME 78.4 fl (80-96); MEAN PLT VOLUME 8.7 fl (7.5-11.1); MONO % 12.1 % (3.8-10.2); NEUT % 72.2 % (42.8-82.8); PLATELET COUNT 271 10^3/uL (134-434); RDW 14.2 % (11.9-15.9); WHITE BLOOD COUNT 13.5 K/mm3 (4.0-10.0)
[2022-02-22 05:56] LABS: CALCIUM 8.7 mg/dL (8.5-10.1)
[2022-02-22 05:57] LABS: BLOOD UREA NITROGEN 10.8 mg/dL (7-18); MAGNESIUM 2.4 mg/dL (1.8-2.4)
[2022-02-22 06:00] LABS: CREATININE 0.8 mg/dL (0.55-1.3)
[2022-02-22 06:01] LABS: BILIRUBIN,TOTAL 0.8 mg/dL (0.2-1)
[2022-02-22 07:10] VITALS: RESP 20; TEMP 98
[2022-02-22] MEDS ORDERED: ACETAMINOPHEN 500 MG TABLET (FP) PO ONE (11:44)
[2022-02-22 11:46] VITALS: BP 140/79; PULSE 95
[2022-02-22] MEDS ORDERED: ACETAMINOPHEN 500 MG TABLET (FP) ONE (11:49)
== END 2022-02-22 12:15 | disposition home or self-care (01) ==
LOC: JER 03:11
PROC: 3E0333Z Introduction of Anti-inflammatory into Peripheral Vein, Percutaneous Approach (ICD-10-PCS; principal; 2022-02-22)
DX: F14.129 Cocaine abuse with intoxication, unspecified (principal); F10.129 Alcohol abuse with intoxication, unspecified; F12.129 Cannabis abuse with intoxication, unspecified; M25.571 Pain in right ankle and joints of right foot
CPT/HCPCS: 36415; 71045-TC-FY; 73630-TC-LT; 73630-TC-RT-FY; 80053; 83735; 84484; 85025; 93005; 93010; 99285-25

== ENCOUNTER 2022-05-01 20:51 | Emergency (ER) | payer OTHER ==
[2022-05-01 21:31] VITALS: BP 114/57; PULSE 83; RESP 20; TEMP 100.8; BMI 23.7
[2022-05-01] MEDS ORDERED: ACETAMINOPHEN 500 MG TABLET (FP) PO ONE (23:13)
[2022-05-01] MEDS ORDERED: ACETAMINOPHEN 500 MG TABLET (FP) ONE (23:41)
[2022-05-02 00:15] LABS: THROAT:GRP A STREP NOT DETECTED (NOTDETECTED)
== END 2022-05-02 01:51 | disposition home or self-care (01) ==
LOC: JER 20:51
DX: J09.X2 Influenza due to identified novel influenza A virus with other respiratory manifestations (principal)
CPT/HCPCS: 0241U-QW; 87651; 99283-25

== ENCOUNTER 2024-07-20 09:27 | Inpatient (IN) | payer OTHER ==
[2024-07-20] MEDS ORDERED: KETOROLAC TROMETHAMINE 30 MG/1 ML VIAL ONE (10:17)
[2024-07-20] MEDS: KETOROLAC TROMETHAMINE 30 MG/1 ML VIAL IM ONE (11:00)
[2024-07-20 11:12] LABS: BASO % 0.3 % (0-2.0); EOS % 2.1 % (0-4.5); HEMATOCRIT 43.1 % (35.4-49); LYMPH % 15.8 % (8-40); MCH 26.1 pg (25.7-33.7); MCHC 32.6 g/dl (32.0-35.9); MEAN CELL VOLUME 80.1 fl (80-96); MONO % 8.6 % (3.8-10.2); NEUT % 73.2 % (42.8-82.8); RBC 5.37 M/mm3 (4.00-5.60); RDW 14.2 % (11.9-15.9); WHITE BLOOD COUNT 16.8 K/mm3 (4.0-10.0)
[2024-07-20] MEDS ORDERED: ACETAMINOPHEN INJECTION 100 ML ONE (11:19)
[2024-07-20 11:27] LABS: CHLORIDE 101 mmol/L (98-107); SODIUM 132 mmol/L (136-145)
[2024-07-20] MEDS: ACETAMINOPHEN 1000 MG/100 ML BAG IVPB ONE (11:27)
[2024-07-20 11:30] LABS: POTASSIUM 6.3 mmol/L (3.5-5.1)
[2024-07-20 11:31] LABS: ALBUMIN 3.8 g/dl (3.4-5.0); ANION GAP 5 mmol/L (4-13); BLOOD UREA NITROGEN 19.1 mg/dL (7-18); CALCIUM 9.4 mg/dL (8.5-10.1); CO2 26 mmol/L (21-32); GLUCOSE,RANDOM 102 mg/dL (74-106); MAGNESIUM 2.2 mg/dL (1.8-2.4)
[2024-07-20 11:34] LABS: CREATININE 0.9 mg/dL (0.55-1.3); SGOT/AST 79 U/L (15-37); SGPT/ALT 65 U/L (13-61)
[2024-07-20 11:36] LABS: BILIRUBIN,TOTAL 0.5 mg/dL (0.2-1); TOT PROT 9.1 g/dl (6.4-8.2)
[2024-07-20 11:38] LABS: ALK PHOS 172 U/L (45-117)
[2024-07-20 12:25] LABS: HIV INTERPRETATION NEGATIVE (NEGATIVE)
[2024-07-20 12:42] LABS: PLATELET ESTIMATE INCREASED
[2024-07-20] MEDS ORDERED: DALBAVANCIN HCL 500 MG VIAL (RESTRICTED TO ID ONLY) IVPB ONE (12:54)
[2024-07-20] MEDS: DALBAVANCIN HCL 1,500 MG in DEXTROSE 5%-WATER - 500 ML IVPB ONE (13:08)
[2024-07-20 13:37] LABS: ANION GAP 3 mmol/L (4-13); BLOOD UREA NITROGEN 18.5 mg/dL (7-18); CALCIUM 9.1 mg/dL (8.5-10.1); CHLORIDE 101 mmol/L (98-107); CO2 26 mmol/L (21-32); GLUCOSE,RANDOM 100 mg/dL (74-106); POTASSIUM 9.8 mmol/L (3.5-5.1); SODIUM 129 mmol/L (136-145)
[2024-07-20 13:39] LABS: CREATININE 0.9 mg/dL (0.55-1.3)
[2024-07-20 15:04] LABS: BLOOD UREA NITROGEN 17.4 mg/dL (7-18)
[2024-07-20 15:07] LABS: CREATININE 0.8 mg/dL (0.55-1.3)
[2024-07-20] MEDS: KETOROLAC TROMETHAMINE 15 MG/ML VIAL IVPUSH PRN (17:21)
[2024-07-20] MEDS: AMPICILLIN NA/SULBACTAM NA 3 GM in SODIUM CHLORIDE 100 ML IVPB SCH (17:22)
[2024-07-20] MEDS: ACETAMINOPHEN 500 MG TABLET (FP) PO PRN (19:49)
[2024-07-20] MEDS ORDERED: AMPICILLIN NA/SULBACTAM NA 3 GM VIAL ONE (21:08)
[2024-07-20] MEDS: HEPARIN NA (PORCINE) 5,000 UNITS/ML 1ML VIAL SQ SCH (21:52)
[2024-07-20] MEDS: MELATONIN 5 MG TABLETS PO PRN (23:00)
[2024-07-21 09:19] LABS: HEMATOCRIT 38.6 % (35.4-49); HEMOGLOBIN 12.4 GM/dL (11.7-16.9); MCH 25.6 pg (25.7-33.7); MEAN CELL VOLUME 79.9 fl (80-96); MEAN PLT VOLUME 7.9 fl (7.5-11.1); PLATELET COUNT 461 10^3/uL (134-434); RBC 4.83 M/mm3 (4.00-5.60)
[2024-07-21 09:40] LABS: POTASSIUM 4.2 mmol/L (3.5-5.1)
[2024-07-21 09:48] LABS: BLOOD UREA NITROGEN 11.4 mg/dL (7-18)
[2024-07-21 09:51] LABS: CREATININE 0.7 mg/dL (0.55-1.3)
[2024-07-21] MEDS: PIPERACILLIN/TAZOB 3.375 GM 50 ML IVPB SCH (15:06)
[2024-07-21] MEDS: SODIUM CHLORIDE 500 ML IV STA (15:07)
[2024-07-21] MEDS: traMADol HCL 50 MG TABLET PO PRN (16:33)
[2024-07-21] MEDS ORDERED: morphine CARPU-JECT 2 MG/1 ML DISP.SYRIN IVPUSH SCH (19:30)
[2024-07-21] MEDS: SODIUM CHLORIDE 1,000 ML IV SCH (21:35)
[2024-07-22 08:52] LABS: HEMOGLOBIN 11.9 GM/dL (11.7-16.9); MEAN CELL VOLUME 78.9 fl (80-96); MEAN PLT VOLUME 7.8 fl (7.5-11.1); PLATELET COUNT 454 10^3/uL (134-434); RBC 4.57 M/mm3 (4.00-5.60); RDW 13.9 % (11.9-15.9); WHITE BLOOD COUNT 18.7 K/mm3 (4.0-10.0)
[2024-07-22 09:12] LABS: POTASSIUM 4.2 mmol/L (3.5-5.1)
[2024-07-22 09:18] LABS: BLOOD UREA NITROGEN 6.9 mg/dL (7-18)
[2024-07-22 09:21] LABS: CREATININE 0.7 mg/dL (0.55-1.3)
[2024-07-22 09:23] LABS: BILIRUBIN,TOTAL 0.4 mg/dL (0.2-1); TOT PROT 7.3 g/dl (6.4-8.2)
[2024-07-22] MEDS ORDERED: HYDROmorphone HCL CARPU-JECT 2 MG/1 ML DISP.SYRIN IVPUSH PRN (13:13)
[2024-07-22] MEDS: PIPERACILLIN/TAZOB 3.375 GM 50 ML IVPB SCH (15:24)
[2024-07-22] MEDS: HYDROmorphone HCL CARPU-JECT 2 MG/1 ML DISP.SYRIN IVPUSH PRN (15:33)
[2024-07-22 16:11] VITALS: BMI 21.7
[2024-07-22] MEDS: VANCOMYCIN HCL IN 5 % DEXTROSE 1,500 MG/300 ML BAG IVPB SCH (17:27)
[2024-07-22] MEDS: PIPERACILLIN/TAZOB 4.5 GM 4.5 GM/100 ML BAG IVPB SCH (21:16)
[2024-07-23] MEDS ORDERED: ACETAMINOPHEN 500 MG TABLET (FP) PO PRN (00:47)
[2024-07-23] MEDS: KETOROLAC TROMETHAMINE 15 MG/ML VIAL IVPUSH ONE (01:01)
[2024-07-23] MEDS: traMADol HCL 50 MG TABLET PO PRN ×2 (02:01→15:52)
[2024-07-23 09:40] LABS: HEMATOCRIT 34.7 % (35.4-49); HEMOGLOBIN 11.5 GM/dL (11.7-16.9); MCH 26.1 pg (25.7-33.7); MCHC 33.2 g/dl (32.0-35.9); MEAN CELL VOLUME 78.5 fl (80-96); MEAN PLT VOLUME 7.9 fl (7.5-11.1); PLATELET COUNT 457 10^3/uL (134-434); RBC 4.42 M/mm3 (4.00-5.60); RDW 13.9 % (11.9-15.9); WHITE BLOOD COUNT 17.8 K/mm3 (4.0-10.0)
[2024-07-23] MEDS: amLODIPine BESYLATE 5 MG TABLET (FP) PO SCH (09:56)
[2024-07-23 09:59] LABS: POTASSIUM 4.6 mmol/L (3.5-5.1)
[2024-07-23 10:06] LABS: CALCIUM 9.1 mg/dL (8.5-10.1)
[2024-07-23 10:07] LABS: ALBUMIN 2.9 g/dl (3.4-5.0); MAGNESIUM 2.1 mg/dL (1.8-2.4)
[2024-07-23 10:10] LABS: CREATININE 0.6 mg/dL (0.55-1.3)
[2024-07-23 10:12] LABS: BILIRUBIN,TOTAL 0.4 mg/dL (0.2-1); TOT PROT 7.4 g/dl (6.4-8.2)
[2024-07-23] MEDS ORDERED: LIDOCAINE HCL 1%, 10 MG/ML (20ML VIAL) ONE (11:05)
[2024-07-23] MEDS ORDERED: BUPIVACAINE HCL/PF 0.5% (5MG/ML) 10 ML VIAL ONE (11:05)
[2024-07-23] MEDS ORDERED: ceFAZolin SODIUM 1 GM VIAL ONE (11:07)
[2024-07-23] MEDS ORDERED: MIDAZOLAM HCL 2 MG/2 ML SINGLE DOSE VIAL ONE (11:07)
[2024-07-23] MEDS ORDERED: ONDANSETRON 4 MG/2 ML VIAL ONE (11:07)
[2024-07-23] MEDS ORDERED: PROPOFOL 20 ML ONE ×2 (11:08→11:57)
[2024-07-23] MEDS ORDERED: ONDANSETRON 4 MG/2 ML VIAL IVPUSH PRN (11:23)
[2024-07-23] MEDS ORDERED: ACETAMINOPHEN INJECTION 100 ML ONE (11:30)
[2024-07-23] MEDS ORDERED: HYDROmorphone HCl 2 MG/ML VIAL ONE (11:56)
[2024-07-23] MEDS: LIDOCAINE HCL 1%, 10 MG/ML (20ML VIAL) NR ONE (12:00)
[2024-07-23] MEDS: ceFAZolin SODIUM 1 GM VIAL IVPB ONE (12:10)
[2024-07-23] MEDS ORDERED: HYDROmorphone HCL CARPU-JECT 2 MG/1 ML DISP.SYRIN IVPUSH PRN (13:02)
[2024-07-23] MEDS: VANCOMYCIN HCL IN 5 % DEXTROSE 1,500 MG/300 ML BAG IVPB SCH (16:42)
[2024-07-23 17:48] VITALS: RESP 18
[2024-07-23] MEDS: PIPERACILLIN/TAZOB 4.5 GM 4.5 GM/100 ML BAG IVPB SCH (18:54)
[2024-07-23] MEDS: oxyCODONE HCL 5 MG TABLET PO PRN (20:42)
[2024-07-23] MEDS: MELATONIN 5 MG TABLETS PO PRN (23:35)
[2024-07-24 09:02] LABS: INR 1.15 (0.83-1.09); PROTHROMBIN TIME (PATIENT) 12.7 SEC (9.7-13.0)
[2024-07-24 09:04] LABS: HEMATOCRIT 33.2 % (35.4-49); HEMOGLOBIN 10.8 GM/dL (11.7-16.9); MCH 25.8 pg (25.7-33.7); MCHC 32.6 g/dl (32.0-35.9); MEAN CELL VOLUME 79.2 fl (80-96); MEAN PLT VOLUME 7.7 fl (7.5-11.1); PLATELET COUNT 452 10^3/uL (134-434); RBC 4.19 M/mm3 (4.00-5.60); RDW 13.5 % (11.9-15.9); WHITE BLOOD COUNT 22.8 K/mm3 (4.0-10.0)
[2024-07-24 09:11] LABS: POTASSIUM 4.2 mmol/L (3.5-5.1)
[2024-07-24 09:15] LABS: CALCIUM 9.1 mg/dL (8.5-10.1)
[2024-07-24 09:16] LABS: ALBUMIN 2.7 g/dl (3.4-5.0); BLOOD UREA NITROGEN 9.6 mg/dL (7-18)
[2024-07-24 09:19] LABS: CREATININE 0.7 mg/dL (0.55-1.3)
[2024-07-24 09:20] LABS: BILIRUBIN,TOTAL 0.3 mg/dL (0.2-1)
[2024-07-24 09:23] LABS: TOT PROT 7.1 g/dl (6.4-8.2)
[2024-07-24] MEDS: amLODIPine BESYLATE 5 MG TABLET (FP) PO SCH (10:46)
[2024-07-24 10:51] LABS: ANISOCYTOSIS 0; HELMET CELLS 0; HOWELL-JOLLY BODIES 0; MACROCYTOSIS 0; OVALOCYTE 0; ROULEAU 0; SICKELED CELLS 0; TARGET CELLS 0; TEAR DROP CELLS 0; TOXIC GRANULATION 0
[2024-07-24] MEDS: LACTATED RINGERS SOLUTION 1,000 ML IV SCH (12:15)
[2024-07-25 12:06] LABS: BASO % 0.5 % (0-2.0); EOS % 4.8 % (0-4.5); HEMATOCRIT 38.5 % (35.4-49); HEMOGLOBIN 12.8 GM/dL (11.7-16.9); MCH 26.1 pg (25.7-33.7); MCHC 33.3 g/dl (32.0-35.9); MEAN CELL VOLUME 78.4 fl (80-96); MEAN PLT VOLUME 7.6 fl (7.5-11.1); MONO % 14.6 % (3.8-10.2); NEUT % 64.1 % (42.8-82.8); PLATELET COUNT 577 10^3/uL (134-434); RBC 4.92 M/mm3 (4.00-5.60); RDW 13.6 % (11.9-15.9); WHITE BLOOD COUNT 10.7 K/mm3 (4.0-10.0)
[2024-07-25 12:22] LABS: POTASSIUM 4.8 mmol/L (3.5-5.1)
[2024-07-25 12:25] LABS: ALBUMIN 2.8 g/dl (3.4-5.0); CALCIUM 9.1 mg/dL (8.5-10.1)
[2024-07-25 12:28] LABS: CREATININE 0.7 mg/dL (0.55-1.3)
[2024-07-25 12:30] LABS: BILIRUBIN,TOTAL 0.2 mg/dL (0.2-1); TOT PROT 7.8 g/dl (6.4-8.2)
[2024-07-26 13:09] LABS: HEMATOCRIT 40.8 % (35.4-49); HEMOGLOBIN 13.5 GM/dL (11.7-16.9); MCH 26.1 pg (25.7-33.7); MCHC 33.2 g/dl (32.0-35.9); MEAN CELL VOLUME 78.8 fl (80-96); MEAN PLT VOLUME 7.4 fl (7.5-11.1); PLATELET COUNT 640 10^3/uL (134-434); RBC 5.18 M/mm3 (4.00-5.60); RDW 14.2 % (11.9-15.9); WHITE BLOOD COUNT 9.8 K/mm3 (4.0-10.0)
[2024-07-26 13:36] VITALS: BP 116/84; PULSE 110; TEMP 98.8
[2024-07-26 13:46] LABS: POTASSIUM 4.8 mmol/L (3.5-5.1)
[2024-07-26 13:52] LABS: BLOOD UREA NITROGEN 14.7 mg/dL (7-18)
[2024-07-26 13:53] LABS: ALBUMIN 3.1 g/dl (3.4-5.0)
[2024-07-26 13:54] LABS: CALCIUM 9.3 mg/dL (8.5-10.1)
[2024-07-26 13:55] LABS: CREATININE 0.7 mg/dL (0.55-1.3)
[2024-07-26 13:57] LABS: BILIRUBIN,TOTAL 0.2 mg/dL (0.2-1); TOT PROT 8.4 g/dl (6.4-8.2)
== END 2024-07-26 19:55 | disposition left against medical advice (07) | DRG 316 ==
LOC: JER 09:27 → JERBED 12:09 → OBSVTOIN 12:53 → J5S 15:16 → J8W 07-24 13:39
PROVIDERS: ADMIT Internal Medicine
PROC: 3E10X8Z Irrigation of Skin and Mucous Membranes using Irrigating Substance (ICD-10-PCS; 2024-07-23)
PROC: 0J9J0ZZ Drainage of Right Hand Subcutaneous Tissue and Fascia, Open Approach (ICD-10-PCS; principal; 2024-07-23 11:00)
DX: M86.8X4 Other osteomyelitis, hand (principal); L03.011 Cellulitis of right finger; R07.89 Other chest pain; I10 Essential (primary) hypertension; M79.603 Pain in arm, unspecified; K76.0 Fatty (change of) liver, not elsewhere classified; D75.839 Thrombocytosis, unspecified; R79.89 Other specified abnormal findings of blood chemistry; F12.10 Cannabis abuse, uncomplicated; F31.9 Bipolar disorder, unspecified; L08.9 Local infection of the skin and subcutaneous tissue, unspecified; F10.10 Alcohol abuse, uncomplicated; Z22.322 Carrier or suspected carrier of Methicillin resistant Staphylococcus aureus; R16.0 Hepatomegaly, not elsewhere classified
CPT/HCPCS: 0241U-QW; 36415; 71045-TC-FY; 73130-TC-RT-FY; 73220-TC-RT; 76705-TC; 80048; 80053; 82550; 82728; 82977; 83540; 83550; 83605; 83735; 84100; 84484; 85025; 85027; 85610; 85651; 86140; 86704; 86708; 86803; 87040; 87070; 87075; 87186; 87205; 87340; 87389; 87517; 87522; 93005; 93010; 94760; 99285-25; G0378; G0480; J0131; J0875; J0878; J1644

== ENCOUNTER 2024-08-23 09:14 | Inpatient (IN) | payer OTHER ==
[2024-08-23] MEDS ORDERED: ACETAMINOPHEN INJECTION 100 ML ONE (10:08)
[2024-08-23] MEDS: ACETAMINOPHEN 1000 MG/100 ML BAG IVPB ONE (10:12)
[2024-08-23] MEDS ORDERED: PIPERACILLIN/TAZOB 4.5 GM 4.5 GM/100 ML BAG IVPB ONE (10:43)
[2024-08-23] MEDS ORDERED: VANCOMYCIN 1 GM PREMIX (F) 1 GM/200 ML BAG ONE (10:43)
[2024-08-23 11:06] LABS: BASO % 0.5 % (0-2.0); EOS % 2.9 % (0-4.5); HEMATOCRIT 41.2 % (35.4-49); HEMOGLOBIN 13.4 GM/dL (11.7-16.9); LYMPH % 30.7 % (8-40); MCH 25.7 pg (25.7-33.7); MCHC 32.5 g/dl (32.0-35.9); MEAN CELL VOLUME 79.1 fl (80-96); MEAN PLT VOLUME 7.8 fl (7.5-11.1); MONO % 10.3 % (3.8-10.2); NEUT % 55.6 % (42.8-82.8); PLATELET COUNT 374 10^3/uL (134-434); RBC 5.21 M/mm3 (4.00-5.60); RDW 15.2 % (11.9-15.9); WHITE BLOOD COUNT 7.1 K/mm3 (4.0-10.0)
[2024-08-23] MEDS: PIPERACILLIN/TAZOB 4.5 GM 4.5 GM in DEXTROSE 5%-WATER 100 ML IVPB ONE (11:11)
[2024-08-23 11:12] LABS: INR 1.05 (0.83-1.09); PROTHROMBIN TIME (PATIENT) 11.4 SEC (9.7-13.0)
[2024-08-23 11:15] LABS: ACTIVATED PTT 31.3 SECONDS (25.2-36.5)
[2024-08-23 11:30] LABS: CHLORIDE 105 mmol/L (98-107); POTASSIUM 4.3 mmol/L (3.5-5.1); SODIUM 138 mmol/L (136-145)
[2024-08-23 11:32] LABS: CALCIUM 9.2 mg/dL (8.5-10.1)
[2024-08-23 11:33] LABS: ALBUMIN 3.6 g/dl (3.4-5.0); ANION GAP 7 mmol/L (4-13); BLOOD UREA NITROGEN 13.8 mg/dL (7-18); CO2 26 mmol/L (21-32); GLUCOSE,RANDOM 161 mg/dL (74-106)
[2024-08-23] MEDS: VANCOMYCIN 1,000 MG in DEXTROSE 5%-WATER - 250 ML IVPB ONE (11:34)
[2024-08-23 11:36] LABS: CREATININE 0.8 mg/dL (0.55-1.3); SGOT/AST 24 U/L (15-37); SGPT/ALT 23 U/L (13-61)
[2024-08-23 11:37] LABS: BILIRUBIN,TOTAL 0.3 mg/dL (0.2-1)
[2024-08-23 11:38] LABS: TOT PROT 7.6 g/dl (6.4-8.2)
[2024-08-23 11:39] LABS: ALK PHOS 104 U/L (45-117)
[2024-08-23 11:46] LABS: ERYTHROCYTE SEDIMENTATION RATE 4 mm/hr (0-10)
[2024-08-23 12:27] LABS: HIV INTERPRETATION NEGATIVE (NEGATIVE)
[2024-08-23 12:39] LABS: HCV DIAGNOSTIC IN-HOUSE W/RFLX REACTIVE (NONREACTIVE)
[2024-08-23] MEDS ORDERED: NICOTINE 14 MG/24 HOURS TOPICAL PATCH TD ONE (15:29)
[2024-08-23] MEDS: NICOTINE 14 MG/24 HOURS TOPICAL PATCH TD SCH (15:36)
[2024-08-23 17:52] VITALS: BMI 22.2
[2024-08-23] MEDS: PIPERACILLIN/TAZOB 4.5 GM 4.5 GM/100 ML BAG IVPB SCH (18:19)
[2024-08-23] MEDS ORDERED: PIPERACILLIN/TAZOB 4.5 GM 4.5 GM in DEXTROSE 5%-WATER 100 ML IVPB SCH (18:30)
[2024-08-23] MEDS: ACETAMINOPHEN 1000 MG/100 ML BAG IVPB PRN (18:53)
[2024-08-23] MEDS: VANCOMYCIN PREMIX 1.5 GM 1,500 MG/300 ML BAG IVPB SCH (23:02)
[2024-08-23] MEDS ORDERED: VANCOMYCIN HCL 1,500 MG in DEXTROSE 5%-WATER - 500 ML IVPB SCH (23:30)
[2024-08-24 09:10] LABS: EOS % 4.6 % (0-4.5); HEMATOCRIT 42.2 % (35.4-49); HEMOGLOBIN 13.8 GM/dL (11.7-16.9); LYMPH % 43.4 % (8-40); MCH 26.1 pg (25.7-33.7); MCHC 32.7 g/dl (32.0-35.9); MEAN CELL VOLUME 79.7 fl (80-96); MEAN PLT VOLUME 7.8 fl (7.5-11.1); MONO % 10.4 % (3.8-10.2); NEUT % 40.6 % (42.8-82.8); PLATELET COUNT 357 10^3/uL (134-434); RDW 14.4 % (11.9-15.9); WHITE BLOOD COUNT 4.1 K/mm3 (4.0-10.0)
[2024-08-24] MEDS: FOLIC ACID 1 MG TABLET (FP) PO SCH (09:11)
[2024-08-24] MEDS: THIAMINE 100 MG TABLET PO SCH (09:11)
[2024-08-24 09:48] LABS: POTASSIUM 4.6 mmol/L (3.5-5.1)
[2024-08-24 09:56] LABS: BLOOD UREA NITROGEN 14.2 mg/dL (7-18)
[2024-08-24 09:57] LABS: ALBUMIN 3.4 g/dl (3.4-5.0)
[2024-08-24 09:58] LABS: CREATININE 0.7 mg/dL (0.55-1.3)
[2024-08-24 10:00] LABS: TOT PROT 7.3 g/dl (6.4-8.2)
[2024-08-24 10:03] LABS: BILIRUBIN,TOTAL 0.5 mg/dL (0.2-1)
[2024-08-24] MEDS: ACETAMINOPHEN 325 MG TABLET (FP) PO PRN (15:00)
[2024-08-24] MEDS: PIPERACILLIN/TAZOB 3.375 GM 50 ML IVPB SCH (17:31)
[2024-08-24] MEDS: PIPERACILLIN/TAZOB 4.5 GM 4.5 GM in DEXTROSE 5%-WATER 100 ML IVPB SCH (18:13)
[2024-08-24] MEDS: traMADol HCL 50 MG TABLET PO ONE (23:09)
[2024-08-24] MEDS: VANCOMYCIN/WATER FOR INJ (PEG) 1 GM/200 ML BAG IVPB SCH (23:18)
[2024-08-25 09:49] LABS: POTASSIUM 4.8 mmol/L (3.5-5.1)
[2024-08-25 10:05] LABS: CALCIUM 9.2 mg/dL (8.5-10.1)
[2024-08-25 10:06] LABS: ALBUMIN 3.5 g/dl (3.4-5.0)
[2024-08-25 10:09] LABS: CREATININE 0.8 mg/dL (0.55-1.3)
[2024-08-25 10:10] LABS: BILIRUBIN,TOTAL 0.4 mg/dL (0.2-1); TOT PROT 7.4 g/dl (6.4-8.2)
[2024-08-25] MEDS ORDERED: BUPIVACAINE HCL/PF 0.5% (5MG/ML) 10 ML VIAL ONE (12:07)
[2024-08-25] MEDS ORDERED: LIDOCAINE HCL 1%, 10 MG/ML (20ML VIAL) ONE (12:07)
[2024-08-25] MEDS ORDERED: ONDANSETRON 4 MG/2 ML VIAL IVPUSH PRN ×2 (12:09→13:59)
[2024-08-25] MEDS ORDERED: oxyCODONE HCL 5 MG TABLET PO PRN ×3 (12:09→13:59)
[2024-08-25] MEDS ORDERED: LACTATED RINGERS SOLUTION 1,000 ML IV SCH (12:15)
[2024-08-25] MEDS ORDERED: BUPIVACAINE HCL/PF 0.25% (2.5MG/ML) 10 ML VIAL ONE (12:22)
[2024-08-25] MEDS ORDERED: PROPOFOL 20 ML ONE (12:32)
[2024-08-25] MEDS ORDERED: MIDAZOLAM HCL 2 MG/2 ML SINGLE DOSE VIAL ONE (12:32)
[2024-08-25] MEDS: VANCOMYCIN 1 GM in NS (PRE-DOCKED) 1,000 MG/250 ML (RESTRICTED TO ID ONLY) IVPB ONE (12:39)
[2024-08-25] MEDS: LIDOCAINE HCL 1%, 10 MG/ML (20ML VIAL) INF ONE (12:40)
[2024-08-25] MEDS: BUPIVACAINE HCL/PF 0.25% (2.5MG/ML) 10 ML VIAL IJ ONE (12:40)
[2024-08-25] MEDS ORDERED: ACETAMINOPHEN 325 MG TABLET (FP) PO PRN (13:59)
[2024-08-25] MEDS: LACTATED RINGERS SOLUTION 1,000 ML IV SCH (14:05)
[2024-08-25] MEDS: oxyCODONE HCL 5 MG TABLET PO PRN (15:51)
[2024-08-25] MEDS: PIPERACILLIN/TAZOB 3.375 GM 50 ML IVPB SCH (17:12)
[2024-08-25] MEDS: ACETAMINOPHEN 325 MG TABLET (FP) PO ONE (18:59)
[2024-08-25] MEDS: oxyCODONE HCL 5 MG TABLET PO ONE (18:59)
[2024-08-25] MEDS ORDERED: oxyCODONE HCL 5 MG TABLET PO ONE (20:36)
[2024-08-25] MEDS: VANCOMYCIN/WATER FOR INJ (PEG) 1 GM/200 ML BAG IVPB SCH (22:33)
[2024-08-26 06:29] VITALS: TEMP 98.1
[2024-08-26] MEDS ORDERED: morphine CARPU-JECT 4 MG/1 ML DISP.SYRIN IVPUSH PRN (09:25)
[2024-08-26] MEDS ORDERED: oxyCODONE HCL 5 MG TABLET PO PRN ×2 (10:52)
[2024-08-26] MEDS ORDERED: ACETAMINOPHEN 325 MG TABLET (FP) PO PRN (10:52)
[2024-08-26] MEDS: morphine SULFATE 4 MG/ML VIAL IVPUSH PRN (11:10)
[2024-08-26] MEDS: FOLIC ACID 1 MG TABLET (FP) PO SCH (11:12)
[2024-08-26] MEDS: THIAMINE 100 MG TABLET PO SCH (11:12)
[2024-08-26] MEDS: NICOTINE 14 MG/24 HOURS TOPICAL PATCH TD SCH (11:12)
[2024-08-26 11:57] LABS: HEMOGLOBIN 13.2 g/dL (13.7-17.5); MCHC 31.4 g/dl (32.3-36.5); MEAN CELL VOLUME 80.2 fl (79.0-92.2); MEAN PLT VOLUME 9.8 fl (9.4-12.4); PLATELET COUNT # 404 x10^3/uL (163-337); RDW 14.4 % (12.0-15.6)
[2024-08-26 12:29] LABS: POTASSIUM 4.7 mmol/L (3.5-5.1)
[2024-08-26 12:34] LABS: CALCIUM 9.1 mg/dL (8.5-10.1)
[2024-08-26 12:35] LABS: ALBUMIN 3.5 g/dl (3.4-5.0); BLOOD UREA NITROGEN 15.5 mg/dL (7-18)
[2024-08-26 12:37] LABS: PHOSPHOROUS 4.1 mg/dL (2.5-4.9)
[2024-08-26 12:38] LABS: CREATININE 0.8 mg/dL (0.55-1.3)
[2024-08-26 12:39] LABS: BILIRUBIN,TOTAL 0.7 mg/dL (0.2-1); TOT PROT 7.4 g/dl (6.4-8.2)
[2024-08-26 16:33] VITALS: BP 138/90; PULSE 110; RESP 17
== END 2024-08-26 18:56 | disposition left against medical advice (07) | DRG 316 ==
LOC: JER 09:14 → JERBED 12:47 → J6S 16:13
PROVIDERS: ADMIT Hospitalist; ATTEND Student in an Organized Health Care Education/Training Program
PROC: 0X6N0Z2 Detachment at Right Index Finger, Mid, Open Approach (ICD-10-PCS; principal; 2024-08-25 12:00)
DX: M86.9 Osteomyelitis, unspecified (principal); I96 Gangrene, not elsewhere classified; F17.210 Nicotine dependence, cigarettes, uncomplicated; F19.20 Other psychoactive substance dependence, uncomplicated; L03.113 Cellulitis of right upper limb
CPT/HCPCS: 36415; 73130-TC-RT-FY; 73218-TC-RT; 80053; 80307; 83735; 84100; 85025; 85027; 85610; 85651; 85730; 86140; 86803; 86850; 86900; 86901; 87040; 87070; 87186; 87205; 87389; 87522; 88305-TC; 88311-TC; 94760; 99285-25; G0480; J0131